=== PATIENT | female | born 1990 | race Caucasian/White ===

== ENCOUNTER 2018-06-24 17:56 | Outpatient (REF) | payer MEDICAID, SELFPAY ==
[2018-06-27 15:30] LABS: Chlamydia Result Negative; GC Result Negative
== END 2018-06-24 18:16 ==
LOC: LBN 17:56
PROVIDERS: PCP Family Medicine; Visit Provider Nurse Practitioner Women's Health
DX: Z11.3 Encounter for screening for infections with a predominantly sexual mode of transmission (principal)
CPT/HCPCS: 87491; 87591

== ENCOUNTER 2018-11-03 16:15 | Emergency (ER) | payer MEDICAID, SELFPAY ==
[2018-11-03 16:20] VITALS: BP 125/67; PULSE 99; RESP 14; TEMP 36.9; O2SAT 99
--- NOTE | 2018-11-03 16:35 | W.ED.GENAD ---
Discharge Plan Disposition Patient Disposition: HOME Condition: Stable Discharge Details Chief Complaint: GenMedical Clinical Impression: Flu-like symptoms Primary Care Provider: Omaira Lion V ED Provider: Jordi Talbot Home Meds and New Rx's Prescriptions: New ondansetron 4 mg tablet,disintegrating 4 mg PO TID PRN (Reason: nausea and vomiting) 5 Days Qty: 30 RF: 0 Continued Nexplanon 68 mg implant 68 mg Subdermal ONCE Qty: 1 RF: 0 ProAir HFA 200 PUFF HFA aerosol inhaler 2 puff Inhalation Q4H PRN PRNQty: 1 RF: 0 Discharge Instructions Additional Instructions: You are likely suffering from a viral illness. Your flu test was negative If symptoms continue next week follow up with your primary care provider return to the emergency department if you feel more ill, have persistent vomit or difficulty breathing Medical Decision Making 28 yo female who denies chronic medical problems, denies smoking/alcohol/drug use, comes in with muscle aches, chills and n/v since yesterday along with diarrhea. She denies new foods or recent travel. She has clear lungs on exam, speaking in full sentences and is afebrile here so doubt pna and appears well so doubt sepsis and do not feel labs or imaging indicated. 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 Soft nontender abdomen so doubt sbo or other surgical pathology. I suspect based on her symptoms viral illness, will check for inlfuenza. influenza test negative. she remains stable and is tolerating PO. Will d/c with antiemetics and advised f/u with pcp and return precautions given Differential Diagnosis influenza, viral illness, pna HPI General Mode of arrival: ambulatory. Date/Time Provider Initiated Documentation: 11/03/18 16:16. Limitations to Documentation: no limitations. Information obtained by: patient. History of Present Illness 28 year old F presents to the emergency department with the chief complaint of muscle aches and n/v, described as moderate, Patient started experiencing this day(s) (1) and it has been constant. No relieving factors improve symptom(s), No exacerbating factors reported . Patient notes cough. Patient did receive the following treatments prior to arrival, none Related Data Home Medications Medication Instructions Recorded Confirmed ProAir HFA 2 puff INHALATION Q4H PRN PRN #1 07/08/15 11/03/18 inh etonogestrel 68 mg subdermal 68 mg SUBDERMAL ONCE #1 implant 06/24/18 11/03/18 implant ondansetron 4 mg PO TID PRN 5 Days #30 tab 11/03/18 Previous Rx's Medication Instructions Recorded ProAir HFA 2 puff INHALATION Q4H PRN PRN #1 07/08/15 inh etonogestrel 68 mg subdermal 68 mg SUBDERMAL ONCE #1 implant 06/24/18 implant ondansetron 4 mg PO TID PRN 5 Days #30 tab 11/03/18 Allergies Allergy/AdvReac Type Severity Reaction Status Date / Time No Known Allergies Allergy Unverified 11/03/18 16:23 General Stated Complaint: GenMedical RAN: 3 Review of Systems Review of Systems All systems reviewed & are unremarkable except as noted in HPI and below Constitutional Denies fever(s) and Denies weakness ENT Denies change in voice Cardiovascular Denies chest pain and Denies dyspnea Respiratory Denies cough and Denies dyspnea Gastrointestinal Denies abdominal pain Genitourinary Denies dysuria Musculoskeletal Denies joint swelling Integumentary/Breasts Denies rash Neurologic Denies weakness Psychiatric Denies depression [facility] Social History Smoking and Tabacco status: Former Tobacco Use Female Reproductive History Menstrual control method: implanted (nexplanon inserted by [employer] ZYN=[id number] EXP=09/2020) History History 2 Para 2 Hx # Term Pregnancies Multiple births Hx # Pregnancies Ectopic pregnancies AB induced Hx Number of Living Children AB spontaneous Exam Const General: no acute distress Orientation: alert HENMI Head: normal to inspection Ears: external ears normal General nose exam: external nose normal Mouth: moist mucous membranes Eyes General: appearance normal, both eyes and all related structures Neck Neck: normal visual inspection Resp Effort & Inspection: normal respiratory effort and able to speak in complete sentences Cardio Rate: regular rate Skin General skin exam: no rashes or lesions noted Neuro General: alert and oriented x3 Extrem General: normal to inspection Psych Mental Status: mental status grossly normal Course Vital Signs Temperature 36.9 C 11/03/18 16:20 Pulse 99 H 11/03/18 16:20 Respiratory Rate 14 11/03/18 16:20 Blood Pressure 125/67 11/03/18 16:20 Pulse Oximetry 99 11/03/18 16:20 Temperature 36.9 C 11/03/18 16:20 Temperature Source Temporal Artery Scan 11/03/18 16:20 Pulse 99 H 11/03/18 16:20 Respiratory Rate 14 11/03/18 16:20 Respiratory Effort Non-Labored 11/03/18 16:21 Blood Pressure 125/67 11/03/18 16:20 Blood Pressure Position Sitting 11/03/18 16:20 Pulse Oximetry 99 11/03/18 16:20 Pain Level 0 11/03/18 16:20 Lab/Test Results Lab/Test Results: 11/03/18 16:26 Nasopharynx Influenza Types A,B Antigen - Pending
[2018-11-03] MEDS: Ondansetron O.D.T. 4 MG TABEF PO (16:42)
--- NOTE | 2018-11-03 16:42 | NUR.NOTE ---
medicated per MD order Nursing Note:
[2018-11-03 17:53] VITALS: BP 125/67; PULSE 99; RESP 14; TEMP 36.9; O2SAT 99
== END 2018-11-03 17:55 | disposition home or self-care (01) ==
PROVIDERS: Emergency Provider Emergency Medicine; PCP Family Medicine
DX: J11.89 Influenza due to unidentified influenza virus with other manifestations (principal)
CPT/HCPCS: 87449; 99283

== ENCOUNTER 2018-11-12 17:50 | Emergency (ER) | payer MEDICAID, SELFPAY ==
[2018-11-12 17:58] VITALS: BP 139/86; PULSE 98; RESP 18; TEMP 37.2; O2SAT 99
[2018-11-12] MEDS: diphenhydrAMINE 25 MG CAP (18:26)
[2018-11-12] MEDS: Famotidine 20 MG TAB (18:26)
[2018-11-12] MEDS: methylPREDNISolone SUCC 125 MG VIAL (18:26)
--- NOTE | 2018-11-12 19:11 | ED.GENADUL_ITS ---
Discharge Plan Disposition Patient Disposition: HOME Condition: Good Discharge Details Chief Complaint: Allergic Clinical Impression: Abscess, dental, Allergic reaction Primary Care Provider: Omaira Lion V ED Provider: Luis Torres Home Meds and New Rx's Prescriptions: New prednisone 50 MG tablet 50 mg PO DAILY Qty: 5 RF: 0 epinephrine 0.3 mg/0.3 mL auto-injector 0.3 mg IM ONCE Qty: 2 RF: 0 amoxicillin-pot clavulanate [Augmentin] 875-125 mg tablet 1 tab PO BID Qty: 14 RF: 0 No Action Nexplanon 68 mg implant 68 mg Subdermal ONCE Qty: 1 RF: 0 albuterol sulfate [ProAir HFA] 200 PUFF HFA aerosol inhaler 2 puff Inhalation Q4H PRN PRNQty: 1 RF: 0 Discharge Instructions Instructions: Dental Abscess (ED), General Allergic Reaction (ED) Additional Instructions: Please take 25 mg of Benadryl every 6 hours for the next 3 days. Please take the steroid as directed. Please use the EpiPen if you have any difficulty breathing, swallowing, rash everywhere, or 5 vomiting or diarrhea with these symptoms. Please follow-up with a dentist immediately for reevaluation of your tooth, please take the Augmentin as directed if you notice any worsening of your symptoms, or any new symptoms such as vomiting, diarrhea, fever, chills, shortness of breath, chest pain, numbness, weakness, or fainting , please return immediately to the emergency department for reevaluation. Please follow up with your primary care provider as soon as possible for reassessment and reevaluation. As always, it was a pleasure participating in your medical care today. . Referrals: Omaira Lion MD [Primary Care Provider] - Medical Decision Making This is a pleasant 28-year-old female who presents for 2 complaints. The patient was eating dinner earlier tonight but quickly developed mild rash over her anterior neck and anterior chest. It occurred while she was eating. She is eating no new foods. She had no complaints of difficulty swallowing, drinking, breathing. She had no vomiting or diarrhea. She did have some hyper secretions in her mouth though. She denied any hot or cold reversal or any peppery taste. On arrival she did demonstrate a very mild rash over anterior chest and neck. Easily blanchable. She was given steroids, Pepcid and Benadryl and had a notable resolution of her symptoms. In addition to this the patient d id complain of mild pain of her left lower molar. Exam demonstrated a small amount of fluctuance at the base of the tooth, a small needle was placed and noted a mild amount of purulent discharge. No significant pain, no signs of angioedema or significant infection. Patient has been given Augmentin here in the ER and will be given a prescription for home use. With complete resolution of her rash, and no signs of systemic infection I feel she can be discharged home. We will give Augmentin for home use, continue steroids and Benadryl for home. We will give a prescription for an EpiPen. I have extensively reviewed the treatment plan and discharge instructions with the patient and their family. I have addressed all patient concerns at this time. The patient and family was made aware of what symptoms to monitor for that would warrant a return to the emergency department. Discussed the plan with the patient and family, they demonstrate verbal understanding and agreement with our assessment and plan at this time. HPI General Date/Time Provider Initiated Documentation: 11/12/18 17:54 . HPI Narrative: This is a 28-year-old female with past medical history of asthma who presents today for evaluation of an allergic reaction. Patient states that she was eating dinner with her at [facility] when she suddenly noticed a warm flush sensation, she went to the bathroom noticed redness all over her neck and anterior chest. She also had a sensation of notable drooling but had no difficulty swallowing, breathing or any other complaints. Patient and her came to the ER for further evaluation. In addition to this the patient has had notable dental problems in the past, she has complained of mild pain in her left lower jaw by her molar, and she is unsure if this is related. She denies any fever or chills. She denies any difficulty or pain eating. She denies any history of anaphylaxis in the past, she denies any history of significant allergic reaction. She has no other complaints at this time. She denies any ingestion of fish, nuts, or other atypical foods. Related Data Home Medications Medication Instructions Recorded Confirmed albuterol sulfate [ProAir HFA] 2 puff INHALATION Q4H PRN PRN #1 07/08/15 11/12/18 inh etonogestrel 68 mg subdermal 68 mg SUBDERMAL ONCE #1 implant 06/24/18 11/12/18 implant amoxicillin-pot clavulanate 1 tab PO BID #14 tab 11/12/18 [Augmentin] epinephrine 0.3 mg IM ONCE #2 each 11/12/18 prednisone 50 mg PO DAILY #5 tab 11/12/18 Previous Rx's Medication Instructions Recorded albuterol sulfate [ProAir HFA] 2 puff INHALATION Q4H PRN PRN #1 07/08/15 inh etonogestrel 68 mg subdermal 68 mg SUBDERMAL ONCE #1 implant 06/24/18 implant amoxicillin-pot clavulanate 1 tab PO BID #14 tab 11/12/18 [Augmentin] epinephrine 0.3 mg IM ONCE #2 each 11/12/18 prednisone 50 mg PO DAILY #5 tab 11/12/18 Allergies Allergy/AdvReac Type Severity Reaction Status Date / Time No Known Allergies Allergy Unverified 11/12/18 18:03 General Stated Complaint: Allergic RAN: 4 Review of Systems Review of Systems All systems reviewed & are unremarkable except as noted in HPI and below PFSH Social History Smoking and Tabacco status: Former Tobacco Use Female Reproductive History Menstrual control method: implanted (nexplanon inserted by Ijeoma DURON THS=[id number] EXP=09/2020) History History 2 Para 2 Hx # Term Pregnancies Multiple births Hx # Pregnancies Ectopic pregnancies AB induced Hx Number of Living Children AB spontaneous Exam Narrative Exam Narrative: 1.Const: Well-nourished, Well-developed, appearing stated age 2.Eyes: PERRL, no conjunctival injection, and symmetrical lids. 3.ENT: Atraumatic external nose and ears. Moist MM. Neck: Symmetric, trachea midline, No thyromegaly. Dental caries are present, there is a small amount of fluctuance around the left lower molar. No active drainage. No evidence of peritonsillar abscess, significant swelling the posterior oropharynx, deviated trachea, angioedema, or other significant abnormalities. 4.CVS: +S1/S2, No murmurs or gallops. Peripheral pulses 2+ and equal in all extremities. Brisk capillary refill in all extremities. 5.RESP: Unlabored respiratory effort. Clear to auscultation bilaterally. No wheezes rales or rhonchi 6.GI: Soft, Nontender/Nondistended, No hepatosplenomegaly. No guarding or rebound. 7.MSK: Normocephalic/Atraumatic, Extremities w/o deformity or ttp No cyanosis or clubbing, Normal movement of all extremities 8.Skin: Warm, Dry. Mild blanching erythema of the anterior neck and chest. Consistent with an allergic reaction. 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 Sensation grossly intact, no focal neurologic deficits. 10.Psych: (AAO) x3. Appropriate mood and affect Course Vital Signs Temperature 37.2 C 11/12/18 17:58 Pulse 98 H 11/12/18 17:58 Respiratory Rate 18 11/12/18 17:58 Blood Pressure 139/86 11/12/18 17:58 Pulse Oximetry 99 11/12/18 17:58 Temperature 37.2 C 11/12/18 17:58 Temperature Source Skin 11/12/18 17:58 Pulse 98 H 11/12/18 17:58 Respiratory Rate 18 11/12/18 17:58 Respiratory Effort 11/12/18 18:08 Respiratory Pattern Normal 11/12/18 18:08 Blood Pressure 139/86 11/12/18 17:58 Pulse Oximetry 99 11/12/18 17:58 Pain Level 0 11/12/18 17:58
[2018-11-12] MEDS: Amoxicillin 875/Clav. 125 TAB PO (19:12)
== END 2018-11-12 19:18 | disposition home or self-care (01) ==
PROVIDERS: Emergency Provider Student in an Organized Health Care Education/Training Program; PCP Family Medicine
DX: R68.84 Jaw pain (principal); K04.7 Periapical abscess without sinus; T78.1XXA Other adverse food reactions, not elsewhere classified, initial encounter; R21 Rash and other nonspecific skin eruption
CPT/HCPCS: 10160; 99283; 99281; J2930

== ENCOUNTER 2019-01-12 13:40 | Emergency (ER) | payer MEDICAID, SELFPAY ==
[2019-01-12 13:44] VITALS: BP 129/80; PULSE 104; RESP 20; TEMP 36.9; O2SAT 96
[2019-01-12] MEDS: Normal Saline 1,000 ML 1000 ML IV (14:25)
[2019-01-12] MEDS: Ketorolac 15 MG/ML VIAL IVP (14:25)
[2019-01-12] MEDS: Acetaminophen 500 MG TAB 1000 MG PO (14:25)
--- NOTE | 2019-01-12 14:29 | W.ED.GENAD ---
Discharge Plan Disposition Patient Disposition: HOME Condition: Improving Discharge Details Chief Complaint: Fever Clinical Impression: URI (upper respiratory infection) Primary Care Provider: Omaira Lion V ED Provider: Julia Hilton Home Meds and New Rx's Prescriptions: Continued Nexplanon 68 mg implant 68 mg Subdermal ONCE Qty: 1 RF: 0 albuterol sulfate [ProAir HFA] 200 PUFF HFA aerosol inhaler 2 puff Inhalation Q4H PRN PRNQty: 1 RF: 0 epinephrine 0.3 mg/0.3 mL auto-injector 0.3 mg IM ONCE Qty: 2 RF: 0 Discharge Instructions Instructions: Upper Respiratory Infection (ED) Additional Instructions: Encourage hydration. Tylenol and/or ibuprofen as needed for discomfort. Please follow-up with primary care next week if not improving. You have declined a lumbar puncture at this time. You may finish this work-up at any point if you have any new or worsening symptoms. If you develop any new or worsening symptoms please seek care urgently once again. Stand Alone Forms: Work Release Discharge Data Discharge Date/Time-TO BE ENTERED AT DEPARTURE: 01/12/19 15:43 HPI General Mode of arrival: ambulatory. Date/Time Provider Initiated Documentation: 01/12/19 13:50. Limitations to Documentation: no limitations. Information obtained by: patient and RN notes reviewed. HPI Narrative: Patient is a 28-year-old female presenting today for fever, headache, sore throat, congestion. She reports that symptoms began 2 days ago. She reports that headache was a gradual onset. She does have a history of migraines and reports that he did feel similar to this although she has not had migraines in some time. Reports he has had a mild cough but no shortness of breath. No chest pain. Denies any GI upset. Endorses congestion and sore throat. Has been febrile at home treating with Tylenol and ibuprofen. She reports that overall her headache is much improved over the past 2 days. Patient is currently afebrile his bends over the past 24 hours per her report Related Data Home Medications Medication Instructions Recorded Confirmed albuterol sulfate [ProAir HFA] 2 puff INHALATION Q4H PRN PRN #1 07/08/15 01/12/19 inh etonogestrel 68 mg subdermal 68 mg SUBDERMAL ONCE #1 implant 06/24/18 01/12/19 implant epinephrine 0.3 mg IM ONCE #2 each 11/12/18 01/12/19 Previous Rx's Medication Instructions Recorded albuterol sulfate [ProAir HFA] 2 puff INHALATION Q4H PRN PRN #1 07/08/15 inh etonogestrel 68 mg subdermal 68 mg SUBDERMAL ONCE #1 implant 06/24/18 implant epinephrine 0.3 mg IM ONCE #2 each 11/12/18 Allergies Allergy/AdvReac Type Severity Reaction Status Date / Time No Known Allergies Allergy Unverified 01/12/19 13:46 General Stated Complaint: Fever RAN: 3 Review of Systems Constitutional Reports as per HPI, Denies chills, Reports fatigue, Reports fever(s), Reports headache(s), Denies poor appetite and Denies weakness Eyes Reports as per HPI, Denies eye discharge, Denies irritation and Denies loss of vision ENT Reports as per HPI, Denies vertigo, Reports otalgia (have been full), Reports headache(s), Reports nasal congestion, Reports nasal discharge, Reports sinus pain, Reports sinus pressure, Reports sore throat, Denies throat swelling and Denies tongue swelling Cardiovascular Reports as per HPI, Denies chest pain, Denies syncope and Denies dyspnea Respiratory Reports as per HPI and Denies dyspnea Gastrointestinal Reports as per HPI, Denies abdominal pain, Denies change in bowel habits, Denies nausea and Denies vomiting Musculoskeletal Denies abnormal gait and Denies numbness Integumentary/Breasts Reports as per HPI and Denies rash Neurologic Reports as per HPI, Denies abnormal movements, Denies abnormal speech, Denies abnormal gait, Denies behavioral changes, Denies confusion, Denies vertigo, Denies syncope, Reports headache(s), Denies focal weakness, Denies loss of vision, Denies numbness, Denies other visual disturbances, Denies sensory deficit and Denies weakness Psychiatric Denies behavioral changes and Denies confusion Endocrine Reports fatigue Allergic/Immunologic Denies throat swelling and Denies tongue swelling [facility] Social History Smoking/Tobacco Use Status: Former Tobacco Use Alcohol Intake: current Alcohol Intake frequency: holidays/special occasions only Drug use: Never Substance use type: does not use Do you feel safe at home: Yes Do you feel safe in your relationship?: Yes Female Reproductive History Menstrual control method: implanted (nexplanon inserted by Ijeoma DURON YAC=[id number] EXP=09/2020) History History 2 Para 2 Hx # Term Pregnancies Multiple births Hx # Pregnancies Ectopic pregnancies AB induced Hx Number of Living Children AB spontaneous Exam Const General: cooperative, healthy appearing, comfortable, no acute distress, well developed and well groomed Nutritional Appearance: average body habitus and well nourished Orientation: alert and awake [facility] Head: normal to inspection, normocephalic and atraumatic Ears: hearing grossly normal bilaterally, external ears normal and TM's normal bilaterally General nose exam: external nose normal and nares normal Face and sinus: normal facial exam, sinuses nontender and face symmetric Mouth: oral mucosae normal, lip normal, tongue normal, oropharynx normal, moist mucous membranes, no muffled voice, no trismus and No restricted motion Teeth and gingiva: dentition normal Throat: uvula midline and abnormal tonsil bilaterally erythema and hypertrophy Eyes General: appearance normal, both eyes and all related structures Neck Neck: normal visual inspection, full ROM, no meningeal signs, trachea midline, supple and lymphadenopathy Resp Effort & Inspection: normal respiratory effort, able to speak in complete sentences and no respiratory distress Auscultation: clear to auscultation bilaterally, no rales, no rhonchi and no wheezes Cardio Rate: regular rate Rhythm: regular rhythm Heart Sounds: S1 normal and S2 normal GI Inspection: normal to inspection Palpation: soft, no hepatosplenomegaly, no guarding, not rigid and nontender Skin General skin exam: no rashes or lesions noted Neuro General: alert and awake Cognition: normal cognition Speech: speech normal Gait: normal gait Extrem General: normal to inspection, full ROM, normal capillary refill, no pedal edema, no calf tenderness and normal gait Psych Appearance: grossly normal and well kempt Mental Status: mental status grossly normal Speech and Movement: speech and movement normal Course Vital Signs Temperature 36.9 C 01/12/19 13:44 Pulse 104 H 01/12/19 13:44 Respiratory Rate 20 01/12/19 13:44 Blood Pressure 129/80 01/12/19 13:44 Pulse Oximetry 96 01/12/19 13:44 Temperature 36.9 C 01/12/19 13:44 Temperature Source Temporal Artery Scan 01/12/19 13:44 Pulse 104 H 01/12/19 13:44 Respiratory Rate 20 01/12/19 13:44 Respiratory Effort Non-Labored 01/12/19 13:44 Blood Pressure 129/80 01/12/19 13:44 Blood Pressure Position Sitting 01/12/19 13:44 Pulse Oximetry 96 01/12/19 13:44 Oxygen Delivery Method Room Air 01/12/19 13:44 Oxygen Flow Rate 0 01/12/19 13:44 Pain Level 6 01/12/19 13:44 Lab/Test Results Lab/Test Results: Patient is a 28-year-old female presenting today with chief complaint of URI and headache. She reports that symptoms began 2 days ago. Initially, she was endorsing headache that came on slowly, no thunderclap quality. States that she had a T-max of 103 ?F. At the onset of headache she has began noting congestion, rhinorrhea, sore throat and mild cough. She denies any chest pain or shortness of breath. She denies any recent travel. Denies any recent antibiotic usage. 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 On exam, she appears nontoxic. She is tachycardic at 104. No rash. Lungs are clear. Neuro exam is intact. She does have some mild discomfort particularly with bending her neck forward but negative Brudzinski. Headache is overall improving over laila past few days. Was initiall 06/22 and is now 4/10. States that she has history of migraines and that it felt very similar to her previous migraines per Labs significant for elevated white count 12.9. Lactate is normal. Labs otherwise without significant abnormality. Influenza is negative. I discussed these findings with the patient. After hydration, Toradol and Tylenol patient feeling much improved. Patient I discussed that this is likely a viral etiology given her congestion, sore throat and upper respiratory symptoms. However, as the patient was endorsing fever and headache, I did consider infectious process such as meningitis or encephalitis. I did recommend a lumbar puncture but the patient prefers to hold off on this at this time. She has capacity to make this decision, is able to return with worsening symptoms and is aware of the risks. She is aware that she may return anytime for this procedure to be completed along with further evaluation.She was given strict return precautions. All of her questions and concerns were addressed, she is in agreement with this plan. 01/12/19 14:18 Nasopharynx Influenza Types A,B Antigen - Pending
[2019-01-12 14:31] LABS: Lactate-non-spesis 0.9 mmol/l (0.6-1.4)
[2019-01-12 14:33] LABS: Abs Immature Grans 0.04 k/cumm (0.0-0.09); Absolute Basophil Count 0.01 k/cumm (0.0-0.2); Absolute Lymphocyte Count 2.35 k/cumm (1.2-3.4); Absolute Neutrophil Count 9.62 k/cumm (1.2-6.7); Basophils % 0.1; Eosinophils % 0.5; HCT 43.5 % (36.0-46.0); HGB 14.4 g/dL (12.0-15.5); Immature Grans % 0.3; Lymphocytes % 18.2; Mean Corp. HGB Concentration 33.1 g/dL (32.0-36.0); Mean Corpuscular Hemoglobin 30.6 pg (27.0-33.0); Mean Corpuscular Volume 92.6 fL (80-95); Mean Platelet Volume 10.5 fL (8.0-11.0); Monocytes % 6.4; Neutrophils % 74.5; Platelet Count 261 x1000/uL (130-400); RBC Distribution Width 12.2 % (11.7-14.6); White Blood Cell Count 12.91 k/cumm (4.4-10.8)
[2019-01-12 14:39] LABS: Absolute Eosinophil Count 0.06 k/cumm (0.0-0.7); Absolute Monocyte Count 0.83 k/cumm (0.11-0.7)
[2019-01-12 14:46] LABS: ALT 53 U/L (12-78); AST 34 U/L (15-37); Albumin 3.7 g/dL (3.4-5.0); Alkaline Phosphatase 64 U/L (46-116); BUN 9 mg/dL (7-18); Bilirubin, Total 1.4 mg/dL (0.2-1.0); CREATININE 0.81 mg/dL (0.55-1.02); Calcium 8.7 mg/dL (8.5-10.1); Chloride 103 mmol/L (98-107); Glucose 98 mg/dL (70-100); Potassium 3.5 mmol/L (3.5-5.1); Sodium 138 mmol/L (136-145); Total Protein 8.1 g/dL (6.4-8.2)
[2019-01-12 15:36] VITALS: BP 108/69; PULSE 87; RESP 14; TEMP 37.4; O2SAT 96
== END 2019-01-12 15:43 | disposition home or self-care (01) ==
PROVIDERS: Emergency Provider Physician Assistant; PCP Family Medicine
DX: J06.9 Acute upper respiratory infection, unspecified (principal); R51 Headache
CPT/HCPCS: 36415; 80053; 87040; 87449; 96361; 96374; 99284; 83605; 83735; 85025; J1885

== ENCOUNTER 2019-06-19 01:11 | Outpatient (CLI) | payer MEDICAID, SELFPAY ==
--- NOTE | 2019-06-19 09:05 | DI.US_ITS ---
EXAM: US HERNIA CLINICAL HISTORY: ABDOMINAL PAIN R10.9, R/O UMBILICAL HERNIA. TECHNIQUE: Ultrasound performed using standard protocol. COMPARISON: US ABDOMEN from 06/19/2019 FINDINGS: A 1.2 cm umbilical hernia demonstrated and could not be completely reduced at the time of this examin ation.
--- NOTE | 2019-06-19 09:05 | DI.US_ITS ---
EXAM: US ABDOMEN CLINICAL HISTORY: ABDOMINAL PAIN R10.9, CHECK GALLBLADDER. TECHNIQUE: Ultrasound performed using standard protocol. COMPARISON: OB US 2-3 TRIMESTER TRANSABD from 11/05/2009 FINDINGS: The aorta and vena cava are intact. The liver is unremarkable. Portal vein is normal. No evidence o f gallstones. Gallbladder wall is normal. There is no evidence of biliary dilatation. The pancreas i s normal. The spleen is normal. The kidneys are unremarkable. There is no evidence of abdominal free fluid. Note is made of 1.2 cm hernia to the left of the umbilicus.
== END 2019-06-19 01:31 ==
PROVIDERS: PCP Family Medicine; Visit Provider Nurse Practitioner Family
DX: R10.9 Unspecified abdominal pain (principal); K42.9 Umbilical hernia without obstruction or gangrene
CPT/HCPCS: 76857; 76700

== ENCOUNTER 2020-07-17 16:14 | Outpatient (REF) | payer SELFPAY ==
[2020-07-22 22:01] LABS: SARS-CoV-2 RNA Undetected (Undetected); SARS-CoV-2 Specimen Source Nasal
== END 2020-07-17 16:34 ==
LOC: NCHCN 16:14
PROVIDERS: PCP Family Medicine; Visit Provider Family Medicine
DX: R19.7 Diarrhea, unspecified (principal); Z11.59 Encounter for screening for other viral diseases
CPT/HCPCS: U0003

== ENCOUNTER 2020-11-24 09:11 | Emergency (ER) | payer BC, SELFPAY ==
[2020-11-24 09:16] VITALS: BP 139/85; PULSE 102; RESP 18; TEMP 36.8; O2SAT 98
--- NOTE | 2020-11-24 09:20 | W.ED.GENAD ---
Discharge Plan Disposition Patient Disposition: HOME Condition: Stable Discharge Details Clinical Impression: Cough Primary Care Provider: Omaira Lion V ED Provider: Julia Hilton Home Meds and New Rx's Prescriptions: New albuterol sulfate 90 mcg/actuation aerosol powdr breath activated 2 inh inhalation Q4H PRNQty: 1 RF: 0 doxycycline hyclate 100 mg capsule 100 mg PO BID Qty: 10 RF: 0 benzonatate [Tessalon Perles] 100 mg capsule 100 mg PO TID PRN (Reason: cough) Qty: 10 RF: 0 Continued Nexplanon 68 mg implant 68 mg Subdermal ONCE Qty: 1 RF: 0 albuterol sulfate [ProAir HFA] 200 PUFF HFA aerosol inhaler 2 puff Inhalation Q4H PRN PRNQty: 1 RF: 0 epinephrine 0.3 mg/0.3 mL auto-injector 0.3 mg IM ONCE Qty: 2 RF: 0 Discharge Instructions Instructions: Acute Cough (ED) Additional Instructions: Please encourage water intake. May use Tylenol and ibuprofen as needed for discomfort. Please use albuterol as previously advised a primary care physician. You may use the Tessalon Perles as prescribed to help with cough. If your symptoms are not improving over the next 48 hours or you develop increasing symptoms, you may begin the antibiotics as discussed. If you begin antibiotics, please take entire course. Please continue to quarantine until your COVID-19 results are returned. Please follow-up with your primary care in 1 week for reevaluation. If you develop shortness of breath, difficulty breathing or the new/worsening symptoms please seek care urgently once again. Stand Alone Forms: Work Release Discharge Data Discharge Date/Time-TO BE ENTERED AT DEPARTURE: 11/24/20 13:46 Medical Decision Making Patient is a pleasant 30-year-old female presented with chief complaint of cough. She reports that cough began approximately 1.5 weeks ago. States that this feels like when she has had pneumonia historically. Reports that over the past few days she began having green sputum. Does endorse some tightness. Denies any chest pain. No pleuritic pain. No history of DVT. Patient does have Nexplanon in place. She denies any nasal congestion, sore throat no GI upset. No change in sense of taste or smell. No recent travel. 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 On exam, patient appears nontoxic. At the time I evaluated the patient, heart rate was 95, Oxygen saturation is 99% in room air. Lung sounds are clear. Normal cardiac exam. No extremity swelling or calf tenderness. Normal HEENT exam. Patient feels like this is recurrence of pneumonia or bronchitis. She does not clinically examine like either. However, given her past medical history I do feel that chest x-ray would be appropriate. Also considered COVID-19. Patient does work in a school but has not had any direct contact with Covid positive people that she is aware of. FINDINGS: Lungs: Unremarkable. No consolidation. Pleural spaces: Unremarkable. No pleural effusion. No pneumothorax. Heart/Mediastinum: Unremarkable. No cardiomegaly. Bones/joints: Unremarkable. IMPRESSION: No acute findings. Discussed the findings with the patient. She denies discussed the potential for pulmonary embolism. I am concerned with the pleuritic chest pain, as well as the patient's use of the Nexplanon, that she has increased risk for pulmonary embolism. Plan to screen baseline labs and D-dimer. Patient does not have any lower extremity edema, no posterior calf pain. Labs reviewed. No leukocytosis. Stable H&H. D-dimer within normal limits. CMP significant for creatinine elevated at 1.2. COVID-19 testing pending. 50 findings with the patient. Advised likely viral upper respiratory infection. She will quarantine until COVID-19 results are back. I encourage hydration. We discussed [id number] and home regimens that may help with symptomatic management. In the event her symptoms worsen, plan to prescribe an antibiotic with a white watch and wait approach. Not appreciate any wheezing, I do not feel that she needs any steroids. Return precautions were discussed. Advise follow-up with primary care in the next 1 to 2 weeks for reevaluation. All her questions and concerns were addressed she is in agreement this plan. HPI General Mode of arrival: ambulatory. Date/Time Provider Initiated Documentation: 11/24/20 09:20. Limitations to Documentation: no limitations. Information obtained by: patient and RN notes reviewed. History of Present Illness 30 year old F presents to the emergency department with the chief complaint of cough, described as moderate and similar to prior episodes, with intensity rated at 6. Quality is described as aching, and is localized to the chest. Patient reports no radiation. Patient started experiencing this week(s) (1.5) and it has been constant. No relieving factors improve symptom(s), No exacerbating factors reported . Patient notes chest pain (describes pleuritic pain ), cough and shortness of breath; denies diaphoresis, fever/chills, headaches, loss of appetite, nausea/vomiting and rash. Patient did receive the following treatments prior to arrival, none Related Data Home Medications Medication Instructions Recorded Confirmed albuterol sulfate [ProAir HFA] 2 puff INHALATION Q4H PRN PRN #1 07/08/15 11/24/20 inh etonogestrel 68 mg subdermal 68 mg SUBDERMAL ONCE #1 implant 06/24/18 11/24/20 implant epinephrine 0.3 mg IM ONCE #2 each 11/12/18 11/24/20 albuterol sulfate 2 inh INHALATION Q4H PRN #1 ea 11/24/20 benzonatate [Tessalon Perles] 100 mg PO TID PRN #10 cap 11/24/20 doxycycline hyclate 100 mg PO BID #10 cap 11/24/20 Previous Rx's Medication Instructions Recorded albuterol sulfate [ProAir HFA] 2 puff INHALATION Q4H PRN PRN #1 07/08/15 inh etonogestrel 68 mg subdermal 68 mg SUBDERMAL ONCE #1 implant 06/24/18 implant epinephrine 0.3 mg IM ONCE #2 each 11/12/18 albuterol sulfate 2 inh INHALATION Q4H PRN #1 ea 11/24/20 benzonatate [Tessalon Perles] 100 mg PO TID PRN #10 [facility] 11/24/20 doxycycline hyclate 100 mg PO BID #10 [facility] 11/24/20 Allergies Allergy/AdvReac Type Severity Reaction Status Date / Time No Known Allergies Allergy Unverified 11/24/20 09:23 General RAN: 3 Review of Systems Constitutional Constitutional: Reports as per HPI, Denies chills, Denies fever(s) and Denies headache(s) Eyes Eyes: Reports as per HPI, Denies eye discharge and Denies irritation ENT Ears, Nose, Mouth, and Throat: Reports as per HPI and Denies headache(s) Cardiovascular Cardiovascular: Reports as per HPI, Denies chest pain and Reports dyspnea Respiratory Respiratory: Reports as per HPI, Reports chest congestion, Reports cough, Denies hemoptysis, Reports pain on inspiration, Reports pain with cough, Reports dyspnea, Denies stridor and Denies wheezing Gastrointestinal Gastrointestinal: Reports as per HPI, Denies abdominal pain, Denies change in bowel habits, Denies nausea and Denies vomiting Integumentary/Breasts Skin/Breast: Reports as per HPI and Denies rash Neurologic Neurologic: Reports as per HPI and Denies headache(s) Allergic/Immunologic Allergic/Immunologic: Denies wheezing [facility] Medical History Abdominal pain in female Bronchitis, acute, with bronchospasm Calculus of gallbladder Cellulitis of hand, left Cubital tunnel syndrome Diarrhea Dyshidrotic eczema Foot pain, left Irregular menses Migraine Pseudocyesis Right shoulder pain Tension headache Social History Smoking/Tobacco Use Status: Former Tobacco Use Tobacco: How many years used: 10 Smoking risk assessment performed?: Yes Alcohol Intake: current Alcohol Intake frequency: holidays/special occasions only Drug use: Never Substance use type: does not use Current gender identity: female Do you feel safe at home: Yes Do you feel safe in your relationship?: Yes Female Reproductive History Menstrual control method: implanted (nexplanon inserted by Ijeoma DURON TAO=[id number] EXP=09/2020) History History 2 Para 2 Hx # Term Pregnancies Multiple births Hx # Pregnancies Ectopic pregnancies AB induced Hx Number of Living Children AB spontaneous Exam Const General: cooperative, healthy appearing, comfortable, no acute distress, well developed and well groomed Nutritional Appearance: well nourished and overweight Orientation: alert and awake [facility] Head: normal to inspection, normocephalic and atraumatic Ears: hearing grossly normal bilaterally, external ears normal and TM's normal bilaterally General nose exam: external nose normal and nares normal Face and sinus: normal facial exam, sinuses nontender and face symmetric Mouth: oral mucosae normal, lip normal, tongue normal, oropharynx normal and moist mucous membranes Teeth and gingiva: dentition normal Throat: posterior oropharynx normal, tonsils normal and uvula midline Eyes General: appearance normal, both eyes and all related structures Neck Neck: normal visual inspection, full ROM, no lymphadenopathy and no meningeal signs Resp Effort & Inspection: normal respiratory effort, able to speak in complete sentences and no respiratory distress Auscultation: clear to auscultation bilaterally, no rales, no rhonchi and no wheezes Cardio Rate: regular rate Rhythm: regular rhythm Heart Sounds: S1 normal and S2 normal Skin General skin exam: no rashes or lesions noted Neuro General: patient alert and patient awake Cognition: normal cognition Speech: speech normal Gait: normal gait Extrem General: normal to inspection, capillary refill normal, no pedal edema, no calf tenderness and normal gait Psych Appearance: grossly normal and well kempt Mental Status: mental status grossly normal Speech and Movement: speech and movement normal
--- NOTE | 2020-11-24 09:45 | DI.RAD_ITS ---
EXAM: XR PORTABLE CHEST AP CLINICAL HISTORY: cough. TECHNIQUE: 2D digital imaging was performed. COMPARISON: CR RIGHT SHOULDER COMPLETE from 06/23/2017 FINDINGS: LUNGS: Clear. No pleural abnormality seen. HEART: Normal. MEDIASTINUM: Normal. OTHER FINDINGS: None. IMPRESSION: No acute pulmonary findings. DATA REPOSITORY: RADIATION DOSE DELIVERED: Total DLP
--- NOTE | 2020-11-24 11:02 | DI.VRAD_ITS ---
PROCEDURE INFORMATION: Exam: XR Chest Exam date and time: 11/24/2020 10:36 AM Age: 30 years old Clinical indication: Cough TECHNIQUE: Imaging protocol: XR of the chest Views: 1 view. COMPARISON: No relevant prior studies available. FINDINGS: Lungs: Unremarkable. No consolidation. Pleural spaces: Unremarkable. No pleural effusion. No pneumothorax. Heart/Mediastinum: Unremarkable. No cardiomegaly. Bones/joints: Unremarkable. IMPRESSION: No acute findings. Dictated and Authenticated by: Bigg Sutton MD. Ordering:BARI Dumont MD
[2020-11-24 12:00] LABS: Abs Immature Grans 0.02 10^3/uL (0.0-0.06); Absolute Basophil Count 0.02 10^3/uL (0.0-0.2); Absolute Eosinophil Count 0.08 10^3/uL (0.0-0.7); Absolute Lymphocyte Count 2.68 10^3/uL (1.2-3.4); Absolute Neutrophil Count 4.72 10^3/uL (1.2-6.7); Basophils % 0.2; HCT 43.5 % (36.0-46.0); HGB 14.3 g/dL (11.2-15.7); Immature Grans % 0.2; Lymphocytes % 33.4; MCH 30.7 pg (27.0-33.0); MCHC 32.9 % (32.0-36.0); MCV 93.3 fL (80-95); Monocytes % 6.2; Nucleated RBC 0 %; Platelet Count 301 10^3/uL (130-400); RBC 4.66 10^6/uL (3.93-5.22); RDW 11.9 % (11.7-14.6); RDW-SD 41.1 fL; WBC 8.02 10^3/uL (4.4-10.8)
[2020-11-24 12:12] LABS: ALT 35 U/L (14-59); AST 21 U/L (15-37); Albumin 3.9 g/dL (3.4-5.0); Alkaline Phosphatase 65 U/L (46-116); Anion Gap 12.4 mmol/L (3-11); BUN 17 mg/dL (7-18); Bilirubin, Total 1.2 mg/dL (0.2-1.0); CO2 22.6 mmol/L (21.0-32.0); CREATININE 1.2 mg/dL (0.55-1.02); Calcium 8.6 mg/dL (8.5-10.1); Chloride 107 mmol/L (98-107); Estimated GFR 52.06 (mL/min/1.73m2); Glucose 98 mg/dL (74-106); Potassium 3.7 mmol/L (3.5-5.1); Sodium 142 mmol/L (136-145); Total Protein 7.6 g/dL (6.4-8.2)
[2020-11-24 12:14] LABS: INR 1.1 (0.9-1.1); PTT Activated 22.3 sec (21.0-27.5); Prothrombin Time 10.7 sec (9.3-11.0)
[2020-11-24 12:29] LABS: D-Dimer 316 ng/mlFEU (<500)
[2020-11-25 15:03] LABS: COVID-19 RT-PCR UVMMC Result Negative (Negative)
--- NOTE | 2020-11-25 18:03 | NUR.NOTE ---
Nursing Note: Pt notified of Negative Covid test. Pt requested copy to be mailed to her. Decided she would pick it up at ER tomorrow.
--- NOTE | 2020-12-01 07:44 | NUR.NOTE ---
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 It has been at the desk for a week. I have mailed the result to her. Bessy Mcarthur
== END 2020-11-24 13:46 | disposition home or self-care (01) ==
PROVIDERS: Emergency Provider Physician Assistant; PCP Family Medicine
DX: R05 Cough (principal); R07.81 Pleurodynia; R06.02 Shortness of breath; B34.9 Viral infection, unspecified; R94.4 Abnormal results of kidney function studies; Z03.818 Encounter for observation for suspected exposure to other biological agents ruled out
CPT/HCPCS: 36415; 80053; 81025; 99284; U0003; 71045; 85025; 85379; 85610; 85730; 99285

== ENCOUNTER 2021-04-12 21:34 | Emergency (ER) | payer BC, SELFPAY ==
[2021-04-12 21:48] VITALS: BP 137/81; PULSE 111; RESP 20; TEMP 36.6; O2SAT 97
--- NOTE | 2021-04-12 22:22 | ED.GENADUL_ITS ---
Discharge Plan Disposition Patient Disposition: HOME Condition: Good Discharge Details Clinical Impression: Laceration of right thumb Primary Care Provider: Omaira Lion V ED Provider: Lusi Torres Home Meds and New Rx's Prescriptions: New cephalexin 500 mg capsule 500 mg PO QID 5 Days Qty: 20 RF: 0 Continued Nexplanon 68 mg implant 68 mg Subdermal ONCE Qty: 1 RF: 0 propranolol 20 mg tablet 20 mg PO BID Qty: 60 RF: 3 prochlorperazine maleate 5 mg tablet See Rx Instructions PO TID PRN (Reason: headaches and/or nausea) Qty: 30 RF: 3 rizatriptan 10 mg tablet See Rx Instructions PO .COMPLEX Qty: 10 RF: 3 ondansetron HCl 4 mg tablet 4 mg PO Q8H RF: 0 albuterol sulfate [ProAir HFA] 200 PUFF HFA aerosol inhaler 2 puff Inhalation Q4H PRN PRNQty: 1 RF: 0 epinephrine 0.3 mg/0.3 mL auto-injector 0.3 mg IM ONCE Qty: 2 RF: 0 Discharge Instructions Instructions: Laceration (ED), Care For Your Absorbable Stitches (ED) Additional Instructions: Please change the dressing daily. Do not directly soak the area. Watch for any signs of infection and return if any increasing redness, swelling, pain, drainage. The sutures should start falling off in 7 to 10 days. I would not be overly hasty and removing them if there is no evidence of infection pain or irritation. You want that area of high tension to heal well and thoroughly before removing the supportive sutures. Please take the antibiotic as directed. The prescription has been sent to your pharmacy on file. If you notice any worsening of your symptoms, or any new symptoms such as vomiting, diarrhea, fever, chills, shortness of breath, chest pain, numbness, weakness, or fainting , please return immediately to the emergency department for reevaluation. Please follow up with your primary care provider as soon as possible for reassessment and reevaluation. As always, it was a pleasure participating in your medical care today. 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 Patient was on her 4 mckay, they were trying to move it and push it up when her hand slipped across the foot peg, lacerating the the thumb at the thenar eminence. Patient cleaned the area, and came into the ER for further assessment. Patient denies any numbness or tingling on the thumb itself. She admits to a tiny bit of tingling at the thenar eminence. She denies any weakness. No other trouble otherwise. No other complaints at this time. Uncertain of when her last tetanus shot was. Physical exam demonstrates a crescent-shaped laceration roughly 4 cm in length. It is surprisingly intact for all the deep structures with no evidence of tendon involvement whatsoever. Neurovascular exam is notably normal. Excellent strength of the thumb with no signs of deficit. The area was notably dirty, grass and dirt was removed. Area was irrigated well with copious amounts of saline and chlorhexidine. Patient tolerated this well. After anesthetization 11 simple interrupted sutures were placed with 5-0 Chromic Gut. Dermabond was then placed over. Patient tolerated all this well. Movement remains intact, strength remains intact. We will start the patient on antibiotics due to the notable contaminated state of the wound initially prior to cleaning. Will give Keflex here and a prescription from use. I will give the patient thumb spica splint for thumb stabilization while she works to prevent any dehiscence. Discussed red flags which to return. I have extensively reviewed the treatment plan and discharge instructions with the patient and their family. I have addressed all patient concerns at this time. The patient and family was made aware of what symptoms to monitor for that would warrant a return to the emergency department. Discussed the plan with the patient and family, they demonstrate verbal understanding and agreement with our assessment and plan at this time. The documentation in this chart was dictated using [employer] dictation software. Please excuse any dictation errors. HPI General Date/Time Provider Initiated Documentation: 04/12/21 21:35 . 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 Patient was on her 4 mckay, they were trying to move it and push it up when her hand slipped across the foot peg, lacerating the the thumb at the thenar eminence. Patient cleaned the area, and came into the ER for further assessment. Patient denies any numbness or tingling on the thumb itself. She admits to a tiny bit of tingling at the thenar eminence. She denies any weakness. No other trouble otherwise. No other complaints at this time. Uncertain of when her last tetanus shot was. Related Data Home Medications Medication Instructions Recorded Confirmed albuterol sulfate [ProAir HFA] 2 puff INHALATION Q4H PRN PRN #1 07/08/15 04/12/21 inh etonogestrel 68 mg subdermal 68 mg SUBDERMAL ONCE #1 implant 06/24/18 04/12/21 implant epinephrine 0.3 mg IM ONCE #2 each 11/12/18 04/12/21 ondansetron HCl 4 mg tablet 4 mg PO Q8H 12/03/20 prochlorperazine maleate 5 mg See Rx Instructions PO TID PRN #30 12/24/20 04/12/21 tablet tab propranolol 20 mg tablet 20 mg PO BID #60 tab 12/24/20 04/12/21 rizatriptan 10 mg tablet See Rx Instructions PO .COMPLEX 02/11/21 02/11/21 #10 tab cephalexin 500 mg PO QID 5 Days #20 cap 04/12/21 Previous Rx's Medication Instructions Recorded albuterol sulfate [ProAir HFA] 2 puff INHALATION Q4H PRN PRN #1 07/08/15 inh etonogestrel 68 mg subdermal 68 mg SUBDERMAL ONCE #1 implant 06/24/18 implant epinephrine 0.3 mg IM ONCE #2 each 11/12/18 prochlorperazine maleate 5 mg See Rx Instructions PO TID PRN #30 12/24/20 tablet tab propranolol 20 mg tablet 20 mg PO BID #60 tab 12/24/20 rizatriptan 10 mg tablet See Rx Instructions PO .COMPLEX 02/11/21 #10 tab cephalexin 500 mg PO QID 5 Days #20 cap 04/12/21 Allergies Allergy/AdvReac Type Severity Reaction Status Date / Time No Known Allergies Allergy Unverified 04/12/21 21:51 horse radish Allergy Severe Uncoded 04/12/21 21:51 blue cheese Allergy Uncoded 04/12/21 21:51 General Stated Complaint: Laceration RAN: 4 Review of Systems All systems reviewed & are unremarkable except as noted in HPI and below PFSH Medical History Abdominal pain in female Asthma Bronchitis, acute, with bronchospasm Calculus of gallbladder Cellulitis of hand, left Cubital tunnel syndrome Diarrhea Dyshidrotic eczema Foot pain, left Irregular menses Migraine Nocturnal headaches Pseudocyesis Right shoulder pain Tension headache Social History Smoking/Tobacco Use Status: Former Tobacco Use Tobacco: How many years used: 10 Smoking risk assessment performed?: Yes Alcohol Intake: current Alcohol Intake frequency: holidays/special occasions only Drug use: Never Substance use type: does not use Household members: spouse and children 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 [employer] Pets and animals: Yes Pets and animals: cat(s), dog(s) and bird(s) Current gender identity: female What is your relationship status?: Panel score (0-1 are the most socially isolated patients): 1 What type of physical activity do you participate in: walking Seatbelt use: always Do you feel safe at home: Yes Do you feel safe in your relationship?: Yes Female Reproductive History Menstrual control method: implanted (nexplanon inserted by Ijeoma DURON TBH=[id number] EXP=09/2020) History History 2 Para 2 Hx # Term Pregnancies Multiple births Hx # Pregnancies Ectopic pregnancies AB induced Hx Number of Living Children AB spontaneous Exam Narrative Exam Narrative: 1.Const: Well-nourished, Well-developed, appearing stated age 2.Eyes: PERRL, no conjunctival injection, and symmetrical lids. 3.ENT: Atraumatic external nose and ears. Moist MM. Neck: Symmetric, trachea midline, No thyromegaly. 4.CVS: +S1/S2, No murmurs or gallops. Peripheral pulses 2+ and equal in all extremities. Brisk capillary refill in all extremities. 5.RESP: Unlabored respiratory effort. Clear to auscultation bilaterally. No wheezes rales or rhonchi 6.GI: Soft, Nontender/Nondistended, No hepatosplenomegaly. No guarding or rebound. 7.MSK: Normocephalic/Atraumatic, Extremities w/o deformity or ttp No cyanosis or clubbing, Normal movement of all extremities Symmetrically palpable radial and ulnar pulses. Capillary refill less than 2 seconds to all digits. Intact sensation to light touch of the radial, median and ulnar nerves demonstrated by testing in the dorsal web space of the thumb, the distal palmar aspect of the index finger, and the lateral surface of the fifth finger. 2 point discrimination intact to 5mm (up to 6mm can be normal in digits 3-5) of discrimination in the affected digit of the thumb. 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 Intact recurrent median nerve as demonstrated by ability to move thumb fully through opposition, abduction and flexion. No snuffbox tenderness. 8.Skin: 4 cm linear crescent-shaped laceration around the medial base of the thumb extending from the palmar side to the dorsal side. Laceration includes the epidermis and dermis and some of the subcutaneous layer however the deep tissues appear to be completely intact. No evidence of tendon involvement or visualization. No active bleeding. There is a small amount of dirt and grass in the thumb. 9.Neuro: wet roller II-XII grossly intact. Sensation grossly intact, no focal neurologic deficits. Please see musculoskeletal 10.Psych: (AAO) x3. Appropriate mood and affect Course Vital Signs Vital signs: Vital Signs Temperature 36.6 C 04/12/21 21:48 Pulse 111 H 04/12/21 21:48 Respiratory Rate 20 04/12/21 21:48 Blood Pressure 137/81 04/12/21 21:48 Pulse Oximetry 97 04/12/21 21:48 Temperature 36.6 C 04/12/21 21:48 Pulse 111 H 04/12/21 21:48 Respiratory Rate 20 04/12/21 21:48 Respiratory Effort Non-Labored 04/12/21 21:52 Blood Pressure 137/81 04/12/21 21:48 Pulse Oximetry 97 04/12/21 21:48 Pain Level 3 04/12/21 21:48 Procedures Laceration Laceration 1: Site: hand (thumb) Side (If applicable): right Size (cm): 4 Description: linear and contaminated Depth: simple, single layer Local Anesthetic: Lidocaine 1% Amount of anesthesia used (mL): 5 Pre-repair: wound explored, irrigated extensively and deep structures intact Skin layer closed with: other (chromic gut) Number of sutures: 11 Technique: simple, interrupted
[2021-04-12] MEDS: Cephalexin 500 MG CAP, 4 CAPS/BTL PO (22:25)
[2021-04-12] MEDS: Bacitracin 1 PACKET (22:46)
== END 2021-04-12 22:45 | disposition home or self-care (01) ==
PROVIDERS: Emergency Provider Student in an Organized Health Care Education/Training Program; PCP Family Medicine
DX: S61.011A Laceration without foreign body of right thumb without damage to nail, initial encounter (principal); W26.8XXA Contact with other sharp object(s), not elsewhere classified, initial encounter
CPT/HCPCS: 12002; 90471

== ENCOUNTER 2021-04-29 10:33 | Emergency (ER) | payer BC, SELFPAY ==
[2021-04-29 10:36] VITALS: BP 122/69; PULSE 103; RESP 18; TEMP 36.8; O2SAT 97
--- NOTE | 2021-04-29 10:49 | ED.GENADUL_ITS ---
Discharge Plan Disposition Patient Disposition: HOME Condition: Stable Discharge Details Clinical Impression: Delayed wound healing Primary Care Provider: Omaira Lion V ED Provider: Dara Thorne Home Meds and New Rx's Prescriptions: No Action Nexplanon 68 mg implant 68 mg Subdermal ONCE Qty: 1 RF: 0 propranolol 20 mg tablet 20 mg PO BID Qty: 60 RF: 3 prochlorperazine maleate 5 mg tablet See Rx Instructions PO TID PRN (Reason: headaches and/or nausea) Qty: 30 RF: 3 rizatriptan 10 mg tablet See Rx Instructions PO .COMPLEX Qty: 10 RF: 3 ondansetron HCl 4 mg tablet 4 mg PO Q8H RF: 0 albuterol sulfate [ProAir HFA] 200 PUFF HFA aerosol inhaler 2 puff Inhalation Q4H PRN PRNQty: 1 RF: 0 epinephrine 0.3 mg/0.3 mL auto-injector 0.3 mg IM ONCE Qty: 2 RF: 0 Discharge Instructions Instructions: Acute Wounds (ED) Additional Instructions: At this time the wound is going to be allowed to heal by secondary intention. Th is may mean that it may take up to 3 to 4 weeks for complete healing. Please allow the wound to air dry as much as possible. You may wash it once daily under running soap and water. Do not keep completely covered. If it does need to be covered just loosely with a dry gauze. Follow up with primary care provider in 3-5 days. Return to ED sooner if any worsening or concerns. Increase oral fluids. Please take Tylenol or Ibuprofen with food every 4-6 hours as needed for pain and swelling. Referrals: Omaira Lion MD [Primary Care Provider] - Discharge Data Discharge Date/Time-TO BE ENTERED AT DEPARTURE: 04/29/21 11:01 Medical Decision Making 30-year-old female presents to ER with chief complaint of nonhealing wound. Patient initially had suturable laceration with 11 internal sutures on April 12. She presents with concern for wound recheck due to open areas of the wound. On initial exam there is no signs of infection no surrounding erythema or drainage however there is a section of the wound that is macerated and appears to have increased moisture. Patient has been keeping it covered continuously with Band- Aid. She was seen at urgent care and had some Steri-Strips placed she was originally placed on cephalexin at I did discuss home care with patient and instructed to allow wound to air dry as much as possible. We will cleaned with chlorhexidine here in the department and cover with a loose dry gauze dressing. Patient verbalized understanding. At this time there is no evidence of infection with antibiotic are not warranted. Instructed to follow-up with primary care provider in the next 3 to 5 days. HPI General Mode of arrival: ambulatory . Date/Time Provider Initiated Documentation: 04/29/21 10:33 . Limitations to Documentation: no limitations . Information obtained by: patient, RN notes reviewed and old records reviewed . HPI Narrative: 30-year-old female presents to ER with chief complaint of nonhealing wound. Patient initially had suturable laceration with 11 internal sutures on April 12. She presents with concern for wound recheck due to open areas of the wound. On initial exam there is no signs of infection no surrounding erythema or drainage however there is a section of the wound that is macerated and appears to have increased moisture. Patient has been keeping it covered continuously with Band-Aid. She was seen at urgent care and had some Steri-Strips placed she was originally placed on cephalexin at the time of the injury. Related Data Home Medications Medication Instructions Recorded Confirmed albuterol sulfate [ProAir HFA] 2 puff INHALATION Q4H PRN PRN #1 07/08/15 04/29/21 inh etonogestrel 68 mg subdermal 68 mg SUBDERMAL ONCE #1 implant 06/24/18 04/29/21 implant epinephrine 0.3 mg IM ONCE #2 each 11/12/18 04/29/21 ondansetron HCl 4 mg tablet 4 mg PO Q8H 12/03/20 04/29/21 prochlorperazine maleate 5 mg See Rx Instructions PO TID PRN #30 12/24/20 04/29/21 tablet tab propranolol 20 mg tablet 20 mg PO BID #60 tab 12/24/20 04/29/21 rizatriptan 10 mg tablet See Rx Instructions PO .COMPLEX 02/11/21 04/29/21 #10 tab Previous Rx's Medication Instructions Recorded albuterol sulfate [ProAir HFA] 2 puff INHALATION Q4H PRN PRN #1 07/08/15 inh etonogestrel 68 mg subdermal 68 mg SUBDERMAL ONCE #1 implant 06/24/18 implant epinephrine 0.3 mg IM ONCE #2 each 11/12/18 prochlorperazine maleate 5 mg See Rx Instructions PO TID PRN #30 12/24/20 tablet tab propranolol 20 mg tablet 20 mg PO BID #60 tab 12/24/20 rizatriptan 10 mg tablet See Rx Instructions PO .COMPLEX 02/11/21 #10 tab Allergies Allergy/AdvReac Type Severity Reaction Status Date / Time No Known Allergies Allergy Unverified 04/29/21 10:44 horse radish Allergy Severe Uncoded 04/29/21 10:44 blue cheese Allergy Uncoded 04/29/21 10:44 General Stated Complaint: Recheck RAN: 4 Review of Systems All systems reviewed & are unremarkable except as noted in HPI and below Integumentary/Breasts Skin/Breast: Reports as per HPI and Reports wounds (delayed healing to la ceration of right palm) [facility] Medical History Abdominal pain in female Asthma Bronchitis, acute, with bronchospasm Calculus of gallbladder Cellulitis of hand, left Cubital tunnel syndrome Diarrhea Dyshidrotic eczema Foot pain, left Irregular menses Migraine Nocturnal headaches Pseudocyesis Right shoulder pain Tension headache Social History Smoking/Tobacco Use Status: Former Tobacco Use Tobacco: How many years used: 10 Smoking risk assessment performed?: Yes Alcohol Intake: current Alcohol Intake frequency: holidays/special occasions only Drug use: Never Substance use type: does not use Household members: spouse and children 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 [place] Pets and animals: Yes Pets and animals: cat(s), dog(s) and bird(s) Current gender identity: female What is your relationship status?: Panel score (0-1 are the most socially isolated patients): 1 What type of physical activity do you participate in: walking Seatbelt use: always Do you feel safe at home: Yes Do you feel safe in your relationship?: Yes Female Reproductive History Menstrual control method: implanted (nexplanon inserted by Ijeoma DURON PIS=[id number] EXP=09/2020) History History 2 Para 2 Hx # Term Pregnancies Multiple births Hx # Pregnancies Ectopic pregnancies AB induced Hx Number of Living Children AB spontaneous Exam Extrem Right upper extremity: hand Details: laceration palm palmar aspect Hand/finger images: 1. Partially open laceration noted to the right thenar eminence, there is an area of macerated tissue due to moisture. Course Vital Signs Vital signs: Vital Signs Temperature 36.8 C 04/29/21 10:36 Pulse 103 H 04/29/21 10:36 Respiratory Rate 18 04/29/21 10:36 Blood Pressure 122/69 04/29/21 10:36 Pulse Oximetry 97 04/29/21 10:36 Temperature 36.8 C 04/29/21 10:36 Temperature Source Temporal Artery Scan 04/29/21 10:36 Pulse 103 H 04/29/21 10:36 Respiratory Rate 18 04/29/21 10:36 Respiratory Effort Non-Labored 04/29/21 10:43 Blood Pressure 122/69 04/29/21 10:36 Blood Pressure Position Sitting 04/29/21 10:36 Pulse Oximetry 97 04/29/21 10:36 Oxygen Delivery Method Room Air 04/29/21 10:36 Oxygen Flow Rate 0 04/29/21 10:36 Pain Level 0 04/29/21 10:36
== END 2021-04-29 11:01 | disposition home or self-care (01) ==
PROVIDERS: Emergency Provider Registered Nurse Emergency; PCP Family Medicine
DX: L76.82 Other postprocedural complications of skin and subcutaneous tissue (principal); S61.011D Laceration without foreign body of right thumb without damage to nail, subsequent encounter; W26.8XXD Contact with other sharp object(s), not elsewhere classified, subsequent encounter
CPT/HCPCS: 99282

== ENCOUNTER 2021-07-08 16:08 | Emergency (ER) | payer OTHER, SELFPAY ==
[2021-07-08 16:22] VITALS: BP 130/82; PULSE 89; RESP 16; TEMP 36.8; O2SAT 100
--- NOTE | 2021-07-08 16:24 | ED.GENADUL_ITS ---
Discharge Plan Disposition Patient Disposition: HOME Condition: Good Discharge Details Clinical Impression: Trapezius muscle strain Primary Care Provider: Omaira Lion V ED Provider: Karie Mckeon Home Meds and New Rx's Prescriptions: New cyclobenzaprine 10 mg tablet 10 mg PO TID PRNQty: 10 RF: 0 Continued Nexplanon 68 mg implant 68 mg Subdermal ONCE Qty: 1 RF: 0 propranolol 20 mg tablet 20 mg PO BID Qty: 60 RF: 3 prochlorperazine maleate 5 mg tablet See Rx Instructions PO TID PRN (Reason: headaches and/or nausea) Qty: 30 RF: 3 rizatriptan 10 mg tablet See Rx Instructions PO .COMPLEX Qty: 10 RF: 3 ondansetron HCl 4 mg tablet 4 mg PO Q8H RF: 0 albuterol sulfate [ProAir HFA] 200 PUFF HFA aerosol inhaler 2 puff Inhalation Q4H PRN PRNQty: 1 RF: 0 epinephrine 0.3 mg/0.3 mL auto-injector 0.3 mg IM ONCE Qty: 2 RF: 0 Discharge Instructions Additional Instructions: You may use [id number] Lidoderm patches as needed, 12 hours on, 12 hours off You may take ibuprofen 600 mg every 8 hours with food Tylenol 650 mg every 4-6 hours Flexeril as needed for musculoskeletal pain Please follow-up with occupational health and primary physician. Return to full duty Return earlier should you have new or worse Stand Alone Forms: Work Release Discharge Data Discharge Date/Time-TO BE ENTERED AT DEPARTURE: 07/08/21 16:59 Medical Decision Making Patient appears well, I suspect musculoskeletal injury to patient's trapezius, strain There is no indication for x-ray imaging at this time, able to range right shoulder completely with discomfort Neurovascularly intact Lungs clear to auscultation, no chest pain or shortness of breath, no suspicion for pneumothorax Repeat assessment in 1 week with persistent pain Medical Records Medical records reviewed: Yes I reviewed the patient's medical records. Lab Data Lab results reviewed: Yes I reviewed the patient's lab results. HPI General Mode of arrival: ambulatory . Date/Time Provider Initiated Documentation: 07/08/21 16:23 . Limitations to Documentation: no limitations . Information obtained by: patient . HPI Narrative: 30-year-old female after shaking injury. Denies any neck pain, strength or sensation change. Pain overlying her trapezius. Denies any shortness of breath of anterior chest pain. Denies abdominal pain, weakness, numbness, tingling, or chance of . Related Data Home Medications Medication Instructions Recorded Confirmed albuterol sulfate [ProAir HFA] 2 puff INHALATION Q4H PRN PRN #1 07/08/15 04/29/21 inh etonogestrel 68 mg subdermal 68 mg SUBDERMAL ONCE #1 implant 06/24/18 04/29/21 implant epinephrine 0.3 mg IM ONCE #2 each 11/12/18 04/29/21 ondansetron HCl 4 mg tablet 4 mg PO Q8H 12/03/20 04/29/21 prochlorperazine maleate 5 mg See Rx Instructions PO TID PRN #30 12/24/20 04/29/21 tablet tab propranolol 20 mg tablet 20 mg PO BID #60 tab 12/24/20 04/29/21 rizatriptan 10 mg tablet See Rx Instructions PO .COMPLEX 02/11/21 04/29/21 #10 tab cyclobenzaprine 10 mg PO TID PRN #10 tab 07/08/21 Previous Rx's Medication Instructions Recorded albuterol sulfate [ProAir HFA] 2 puff INHALATION Q4H PRN PRN #1 07/08/15 inh etonogestrel 68 mg subdermal 68 mg SUBDERMAL ONCE #1 implant 06/24/18 implant epinephrine 0.3 mg IM ONCE #2 each 11/12/18 prochlorperazine maleate 5 mg See Rx Instructions PO TID PRN #30 12/24/20 tablet tab propranolol 20 mg tablet 20 mg PO BID #60 tab 12/24/20 rizatriptan 10 mg tablet See Rx Instructions PO .COMPLEX 02/11/21 #10 tab cyclobenzaprine 10 mg PO TID PRN #10 tab 07/08/21 Allergies Allergy/AdvReac Type Severity Reaction Status Date / Time No Known Allergies Allergy Unverified 07/08/21 16:27 horse radish Allergy Severe Uncoded 07/08/21 16:27 blue cheese Allergy Uncoded 07/08/21 16:27 General RAN: 4 Review of Systems All systems reviewed & are unremarkable except as noted in HPI and below [facility] Medical History Abdominal pain in female Asthma Bronchitis, acute, with bronchospasm Calculus of gallbladder Cellulitis of hand, left Cubital tunnel syndrome Diarrhea Dyshidrotic eczema Foot pain, left Irregular menses Migraine Nocturnal headaches Pseudocyesis Right shoulder pain Tension headache Social History Smoking/Tobacco Use Status: Former Tobacco Use Tobacco: How many years used: 10 Smoking risk assessment performed?: Yes Alcohol Intake: current Alcohol Intake frequency: holidays/special occasions only Drug use: Never Substance use type: does not use Household members: spouse and children 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 [place] Pets and animals: Yes Pets and animals: cat(s), dog(s) and bird(s) Current gender identity: female What is your relationship status?: Panel score (0-1 are the most socially isolated patients): 1 What type of physical activity do you participate in: walking Seatbelt use: always Do you feel safe at home: Yes Do you feel safe in your relationship?: Yes Female Reproductive History Menstrual control method: implanted (nexplanon inserted by Ijeoma DURON RBN=[id number] EXP=09/2020) History History 2 Para 2 Hx # Term Pregnancies Multiple births Hx # Pregnancies Ectopic pregnancies AB induced Hx Number of Living Children AB spontaneous Exam Const General: cooperative, comfortable and no acute distress HENMT Head: normal to inspection Eyes Pupils: PERRL Neck Other: No midline tenderness Resp Effort & Inspection: normal respiratory effort Auscultation: clear to auscultation bilaterally Cardio Rate: regular rate Rhythm: regular rhythm Other: Distal pulses intact Neuro General: patient alert and patient oriented x3 Other: Strength and sensation intact distally Extrem Shoulder/upper arm images: 1. Reproducible tenderness, no visible sign of trauma, no crepitus
== END 2021-07-08 16:59 | disposition home or self-care (01) ==
PROVIDERS: Emergency Provider Physician Assistant; PCP Family Medicine
DX: S46.811A Strain of other muscles, fascia and tendons at shoulder and upper arm level, right arm, initial encounter (principal); X58.XXXA Exposure to other specified factors, initial encounter
CPT/HCPCS: 99283

== ENCOUNTER 2021-07-24 15:05 | Outpatient (REF) | payer BC, SELFPAY ==
[2021-07-26 18:24] LABS: COVID-19 RT-PCR UVMMC Result Negative (Negative)
== END 2021-07-24 15:06 | disposition home or self-care (01) ==
LOC: NCHCN 15:05
PROVIDERS: PCP Family Medicine; Visit Provider Family Medicine
DX: Z20.822 Contact with and (suspected) exposure to COVID-19 (principal)
CPT/HCPCS: U0003

== ENCOUNTER 2021-07-28 11:41 | Outpatient (REF) | payer BC, SELFPAY ==
[2021-07-30 22:13] LABS: COVID-19 RT-PCR UVMMC Result Positive (Negative)
== END 2021-07-28 11:42 | disposition home or self-care (01) ==
LOC: NCHCN 11:41
PROVIDERS: PCP Family Medicine; Visit Provider Nurse Practitioner Family
DX: Z20.822 Contact with and (suspected) exposure to COVID-19 (principal); J06.9 Acute upper respiratory infection, unspecified
CPT/HCPCS: U0003

== ENCOUNTER 2021-07-28 13:22 | Outpatient (CLI) | payer BC, SELFPAY ==
--- NOTE | 2021-07-28 11:35 | DI.RAD_ITS ---
Exam(s) XR CHEST 2V PA LATERAL EXAM: XR CHEST 2V PA LATERAL CLINICAL HISTORY: DYSPNEA R06.00. TECHNIQUE: 2D digital imaging was performed. COMPARISON: CR,XR XR PORTABLE CHEST AP from 11/24/2020 FINDINGS: Heart size is normal. The mediastinum is not widened. Right lung is clear but there is nodular infiltrate in the left suprahilar region measuring approxima tely 2.5 by 1.7 cm. No associated pleural effusions. IMPRESSION: There is area of suprahilar infiltrate on the left side measuring 25 x 17 millimeters requiring imagi ng follow-up to resolution to rule out malignancy. DATA REPOSITORY: RADIATION DOSE DELIVERED:
== END 2021-07-28 13:42 ==
PROVIDERS: PCP Family Medicine; Visit Provider Nurse Practitioner Family
DX: R06.09 Other forms of dyspnea (principal); R91.8 Other nonspecific abnormal finding of lung field
CPT/HCPCS: 71046

== ENCOUNTER 2021-08-14 09:54 | Outpatient (CLI) | payer BC, SELFPAY ==
--- NOTE | 2021-08-14 | DI.RAD_ITS ---
Exam(s) XR CHEST 2V PA LATERAL EXAM: XR CHEST 2V PA LATERAL CLINICAL HISTORY: PULMONARY INFILTRATE, R91.8, F/U CXR 07/28/21, HAD COVID EARLY JULY. TECHNIQUE: 2D digital imaging was performed. COMPARISON: CR CHEST 2 VIEWS PA,LAT from 11/16/2012 CR,XR XR PORTABLE CHEST AP from 11/24/2020 CR,XR XR PORTABLE CHEST AP from 11/24/2020 CR XR CHEST 2V PA LATERAL from 07/28/2021 FINDINGS: The left upper lobe suprahilar infiltrate has decreased/mostly resolved. No new additional infiltrat es and no pleural effusions. Heart size is normal. IMPRESSION: Significant improvement in the left suprahilar infiltrate. This appears to have mostly resolved. Th ere are no new infiltrates. No pleural effusion DATA REPOSITORY: RADIATION DOSE DELIVERED:
== END 2021-08-14 10:14 ==
LOC: DI 09:56
PROVIDERS: PCP Family Medicine; Visit Provider Nurse Practitioner Family
DX: R91.8 Other nonspecific abnormal finding of lung field (principal)
CPT/HCPCS: 71046

== ENCOUNTER 2021-11-13 16:28 | Outpatient (REF) | payer BC, OTHER, SELFPAY ==
--- NOTE | 2021-11-13 15:33 | PAPFT_PTH ---
PATIENT: Yudy Matos LOC: [facility] U#:[id number] AGE/SX: 31/F ROOM: RE11/13/[address]: Buffy Mtz MD : 1990 BED: DIS: 11/13/2021 SPEC #: [id number] RECD: 11/13/21 17:50 STATUS: KACI REKayden #: [id number] CORDELL: 11/13/21 15:[address]: Buffy Mtz DEPT: [facility] Cytology RECD BY: Karie Elder ENTERED: 11/13/21 17:50 SP TYPE: PAPFT OTHR DR: Omaira Lion V Tissues: 1 - CX/ENDOCX FOR PAP SMEARS Procedures: PAP THIN PREP/UVM Screening HPV DNA PROBE Comments: [id number]
== END 2021-11-13 16:29 | disposition home or self-care (01) ==
LOC: LBN 16:28
PROVIDERS: PCP Family Medicine; Visit Provider Obstetrics & Gynecology
DX: Z12.4 Encounter for screening for malignant neoplasm of cervix (principal); Z11.51 Encounter for screening for human papillomavirus (HPV)
CPT/HCPCS: 88142; 87624

== ENCOUNTER 2022-06-29 03:35 | Outpatient (CLI) | payer OTHER, SELFPAY ==
[2022-06-29 07:50] LABS: Calculated LDL 135 mg/dL (<100); Cholesterol 208 mg/dL (<200); Estimated GFR 76.29 (mL/min/1.73m2); HDL Cholesterol 47 mg/dL (40-60); Triglyceride 132 mg/dL (<150)
== END 2022-06-29 03:36 | disposition home or self-care (01) ==
LOC: LBO 03:35
PROVIDERS: PCP Nurse Practitioner Family; Visit Provider Nurse Practitioner Family
DX: R74.8 Abnormal levels of other serum enzymes (principal); Z13.220 Encounter for screening for lipoid disorders
CPT/HCPCS: 36415; 80061; 82565

== ENCOUNTER 2022-10-14 08:04 | Emergency (ER) | payer OTHER, SELFPAY ==
--- NOTE | 2022-10-14 08:00 | RT.EKG_ITS ---
APPROVED REPORT Exam: Resting ECG Reason for Exam: sob Patient Location: E HR:106 bpm ECG Measurements Heart Rate 106 AXIS VA 125 P 43 QRSd 86 QRS 11 QT 351 T 20 QTc 466 Conclusion Sinus tachycardia...rate> 99 Low voltage, precordial leads...precordial leads <1.0mV. Sinus. No STEMI. I have reviewed and interpreted ECG and agree with software generated interpretation.
[2022-10-14 08:10] VITALS: BP 130/85; PULSE 105; RESP 18; TEMP 37.4; O2SAT 98
[2022-10-14] MEDS: predniSONE 20 MG TAB 40 MG PO (08:40)
[2022-10-14 09:11] LABS: Abs Immature Grans 0.03 10^3/uL (0.0-0.06); Absolute Basophil Count 0.02 10^3/uL (0.0-0.2); Absolute Eosinophil Count 0.12 10^3/uL (0.0-0.7); Absolute Lymphocyte Count 2.47 10^3/uL (1.2-3.4); Absolute Monocyte Count 0.56 10^3/uL (0.1-0.8); Absolute Neutrophil Count 6.81 10^3/uL (1.2-6.7); Basophils % 0.2; Eosinophils % 1.2; HCT 42.6 % (36.0-46.0); HGB 13.9 g/dL (11.2-15.7); Immature Grans % 0.3; Lymphocytes % 24.7; MCH 30.5 pg (27.0-33.0); MCHC 32.6 % (32.0-36.0); MCV 94 fL (80-95); MPV 10.1 fL (8.0-11.0); Monocytes % 5.6; Platelet Count 266 10^3/uL (130-400); RBC 4.55 10^6/uL (3.93-5.22); RDW 11.9 % (11.7-14.6); RDW-SD 41.1 fL; WBC 10.01 10^3/uL (4.4-10.8)
[2022-10-14 09:18] LABS: ALT 26 U/L (14-59); AST 20 U/L (15-37); Albumin 3.8 g/dL (3.4-5.0); Alkaline Phosphatase 58 U/L (46-116); Anion Gap 8.7 mmol/L (3-11); BUN 13 mg/dL (7-18); Bilirubin, Total 1.1 mg/dL (0.2-1.0); CO2 26.3 mmol/L (21.0-32.0); Calcium 8.9 mg/dL (8.5-10.1); Chloride 104 mmol/L (98-107); Estimated GFR 75.81 (mL/min/1.73m2); Glucose 124 mg/dL (74-106); Potassium 3.6 mmol/L (3.5-5.1); Sodium 139 mmol/L (136-145); Total Protein 7.4 g/dL (6.4-8.2)
[2022-10-14 09:35] LABS: D-Dimer 442 ng/mlFEU (<500)
[2022-10-14 09:39] LABS: COVID-19 PCR Negative (Negative); Influenza A PCR Negative (Negative); Influenza B PCR Negative (Negative); RSV PCR Negative (Negative)
[2022-10-14 09:40] LABS: Source Nasopharynx
--- NOTE | 2022-10-14 09:51 | DI.RAD_ITS ---
Exam(s) XR PORTABLE CHEST AP EXAM: XR PORTABLE CHEST AP CLINICAL HISTORY: shortness of breath, persistent cough TECHNIQUE: 2D digital imaging was performed. COMPARISON: CR XR CHEST 2V PA LATERAL from 08/14/2021 FINDINGS: LUNGS: Clear. No pleural abnormality seen. HEART: Normal size. AORTA: Normal diameter. BONES: Unremarkable for age. Soft tissues: Unremarkable. IMPRESSION: No acute findings. DATA REPOSITORY: RADIATION DOSE DELIVERED:
--- NOTE | 2022-10-14 09:57 | ED.GENADUL_ITS ---
Discharge Plan Disposition Patient Disposition: Home Condition: Stable Discharge Details Clinical Impression: Upper respiratory infection Primary Care Provider: Nahid Potter ED Provider: Karie Mckeon Home Meds and New Rx's Prescriptions: New prednisone 20 mg tablet 40 mg PO ONCE Qty: 10 0RF Continued albuterol sulfate [ProAir HFA] 90 mcg/actuation HFA aerosol inhaler 2 puff Inhalation Q4H PRN PRN (Reason: bronchospasm) Qty: 1 0RF propranolol 20 mg tablet 20 mg PO BID Qty: 180 3RF prochlorperazine maleate 5 mg tablet See Rx Instructions PO TID PRN (Reason: headaches and/or nausea) Qty: 30 3RF Rx Instructions: Take 1-2 tablets PO three times a day PRN; fluticasone propionate [Flovent HFA] 110 mcg/actuation HFA aerosol inhaler 1 puff inhalation BID Qty: 12 3RF epinephrine 0.3 mg/0.3 mL auto-injector 0.3 mg IM ONCE Qty: 2 0RF Discharge Instructions Instructions: Upper Respiratory Infection (ED) Additional Instructions: Prednisone as prescribed Use your inhaler, 2 puffs every 4-6 hours as needed for cough, wheeze, shortness of breath Increase fluids Humidifier in your room Return earlier should you have chest pain, worsening shortness of breath, or with any new or progressing symptoms Recommendation for outpatient follow-up with your primary care physician May use [id number] cough and cold medications tolerated Referrals: Nahid Potter, [facility] [Primary Care Provider] - Medical Decision Making Patient recently treated for pneumonia with Augmentin although I suspect she has viral etiology of complaint Her chest x-ray is within normal limits. Her lungs are clear to auscultation She denies any chest pain or shortness of breath and has a negative dimer, low suspicion for pulmonary embolism clinically Negative completed Will treat with prednisone to assist with shortness of breath Encouraged [id number] supportive care EKG does not show evidence of acute abnormality per my review and attendings interpretation Afebrile and nontoxic Will follow-up with primary care physician in the outpatient setting Placed on 5 days of prednisone. Medical Records Medical records reviewed: Yes I reviewed the patient's medical records. Lab Data Lab results reviewed: Yes I reviewed the patient's lab results. HPI General Date/Time Provider Initiated Documentation: 10/14/22 08:15 . HPI Narrative: This 32-year-old female presents with report of upper respiratory symptoms which been persistent since the last week in the summer. Denies any fever or chills. States that in September during the first week she was placed on Augmentin for clinical diagnosis of pneumonia, she did not have an x-ray at that time. She st ates this did not improve her symptoms. She states she uses Flovent daily and albuterol every 4 hours She describes supportive care. Denies any chest pain or shortness of breath. Related Data Home Medications Medication Instructions Recorded Confirmed epinephrine 0.3 mg/0.3 mL 0.3 mg (0.3 mL) IM ONCE #2 ea 11/12/18 10/14/22 injection, auto-injector prochlorperazine maleate 5 mg See Rx Instructions PO TID PRN 06/10/22 10/14/22 tablet headaches and/or nausea #30 tabs propranolol 20 mg tablet 20 mg PO BID #180 tabs 06/10/22 10/14/22 albuterol sulfate 90 mcg/actuation 2 puff inhalation Q4H PRN PRN 09/21/22 10/14/22 aerosol inhaler (ProAir HFA) bronchospasm #1 inh fluticasone propionate 110 1 puff inhalation BID #12 grams 09/21/22 10/14/22 mcg/actuation HFA aerosol inhaler (Flovent HFA) prednisone 20 mg tablet 40 mg PO ONCE #10 tabs 10/14/22 Previous Rx's Medication Instructions Recorded epinephrine 0.3 mg/0.3 mL 0.3 mg (0.3 mL) IM ONCE #2 ea 11/12/18 injection, auto-injector prochlorperazine maleate 5 mg See Rx Instructions PO TID PRN 06/10/22 tablet headaches and/or nausea #30 tabs propranolol 20 mg tablet 20 mg PO BID #180 tabs 06/10/22 albuterol sulfate 90 mcg/actuation 2 puff inhalation Q4H PRN PRN 09/21/22 aerosol inhaler (ProAir HFA) bronchospasm #1 inh fluticasone propionate 110 1 puff inhalation BID #12 grams 09/21/22 mcg/actuation HFA aerosol inhaler (Flovent HFA) prednisone 20 mg tablet 40 mg PO ONCE #10 tabs 10/14/22 Allergies Allergy/AdvReac Type Severity Reaction Status Date / Time horse radish Allergy Severe Uncoded 10/14/22 08:18 blue cheese Allergy Uncoded 10/14/22 08:18 General Stated Complaint: RespSymp RAN: 3 PFSH All Active Problems (Updated 10/14/22 @ 10:00 by TRELL Chacko) Upper respiratory infection (Acute) Plantar warts (Acute) Right shoulder pain (Acute) Anxiety (Chronic) Umbilical hernia (Acute) Irritant contact dermatitis due to other agents (Acute) Migraine (Acute) Nocturnal headaches (Acute) Medical History (Updated 10/14/22 @ 10:00 by TRELL Chacko) Allergic reaction Blue cheese, horse raddish COVID (~07/2021) again + on 04/27/22. Treated with Molnupiravir. Cubital tunnel syndrome History of tobacco use Quit in 2011 Incomplete tear of right rotator cuff Repaired in 2017 Surgical History (Updated 02/11/22 @ 15:17 by Breanna Ovalle) H/O wisdom tooth extraction Hx of tonsillectomy Family History (Updated 02/11/22 @ 12:09 by Breanna Ovalle) Mother No problems noted. Father No problems noted. Brother No problems noted. Son No problems noted. Maternal Grandfather , 67 No problems noted. Daughter No problems noted. Paternal Grandfather , 83 No problems noted. Maternal Grandmother No problems noted. Paternal Grandmother , 79 No problems noted. 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 [employer] Pets and animals: Yes Pets and animals: cat(s), dog(s) and bird(s) Sexually active: Yes Do you think of yourself as: straight/heterosexual Current gender identity: female What is your relationship status?: How often do you talk on the phone with friends or family?: three or more times per week How often do you get together with friends or relatives?: once per week How often do you attend religious or confucianism services?: decline to answer Do you belong to any clubs or organized social groups?: no Panel score (0-1 are the most socially isolated patients): 2 What type of physical activity do you participate in: walking Duration: > 90 minutes/day Frequency: daily Sylvia/Catholic: No preference Seatbelt use: always Helmet use: Yes Helmet use: always Drive intox 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 Date GA/Weeks # Preg Succ Route Wgt Sex Labor Lgth Anesth esia Location Prov Complic 06/20/07 40 No vaginal 3770.487 g Male 38 11/08/09 40 No vaginal 3997.283 g Female Delivery Date: 06/20/07 Last Updated by: Mariangel Garza baby broke away from placenta. Pt induced Delivery Date: 11/08/09 Last Updated by: Mariangel Garza baby stuck in canal Exam Const General: cooperative and comfortable Orientation: alert and oriented x3 Eyes Sclera: sclerae normal Resp Effort & Inspection: normal respiratory effort Auscultation: clear to auscultation bilaterally Cardio Rate: regular rate Rhythm: regular rhythm Skin General skin exam: no rashes or lesions noted Neuro General: patient alert and patient oriented x3 Extrem Other: Neurovascularly intact, no past swelling or tenderness Course Vital Signs Vital signs: Vital Signs Temperature 37.4 C 10/14/22 08:10 Pulse 105 H 10/14/22 08:10 Respiratory Rate 18 10/14/22 08:10 Blood Pressure 130/85 10/14/22 08:10 Pulse Oximetry 98 10/14/22 08:10 Temperature 37.4 C 10/14/22 08:10 Temperature Source Oral 10/14/22 08:10 Pulse 105 H 10/14/22 08:10 Respiratory Rate 18 10/14/22 08:10 Respiratory Effort 10/14/22 08:19 Respiratory Depth Normal 10/14/22 08:19 Blood Pressure 130/85 10/14/22 08:10 Pulse Oximetry 98 10/14/22 08:10 Oxygen Delivery Method Room Air 10/14/22 08:10 Oxygen Flow Rate 0 10/14/22 08:10 Lab/Test Results Lab/Test Results: Laboratory Tests Range/Units 10/14/22 10/14/22 10/14/22 08:45 08:45 08:45 WBC (4.4-10.8) 10^3/uL 10.01 RBC (3.93-5.22) 10^6/uL 4.55 Hgb (11.2-15.7) g/dL 13.9 Hct (36.0-46.0) % 42.6 MCV (80-95) fL 94 MCH (27.0-33.0) pg 30.5 MCHC (32.0-36.0) % 32.6 RDW (11.7-14.6) % 11.9 Plt Count (130-400) 10^3/uL 266 MPV (8.0-11.0) fL 10.1 Immature Gran % 0.3 Neutrophils % 68.0 Lymphocytes % 24.7 Monocytes % 5.6 Eosinophils % 1.2 Basophils % 0.2 Nucleated RBC % (0.0-0.3) % 0.0 Absolute Neutrophils (1.2-6.7) 10^3/uL 6.81 H Absolute Lymphocytes (1.2-3.4) 10^3/uL 2.47 Absolute Monocytes (0.1-0.8) 10^3/uL 0.56 Absolute Eosinophils (0.0-0.7) 10^3/uL 0.12 Absolute Basophils (0.0-0.2) 10^3/uL 0.02 D-Dimer (<500) ng/mlFEU 442 Sodium (136-145) mmol/L 139 Potassium (3.5-5.1) mmol/L 3.6 Chloride (98-107) mmol/L 104 Carbon Dioxide (21.0-32.0) mmol/L 26.3 Anion Gap (3-11) mmol/L 8.7 BUN (7-18) mg/dL 13 Creatinine (0.55-1.02) mg/dL 1.0 Est GFR (CKD-EPI 2020) (mL/min/1.73m2) 75.81 Glucose (74-106) mg/dL 124 H Calcium (8.5-10.1) mg/dL 8.9 Total Bilirubin (0.2-1.0) mg/dL 1.1 H AST (15-37) U/L 20 ALT (14-59) U/L 26 Alkaline Phosphatase (46-116) U/L 58 Total Protein (6.4-8.2) g/dL 7.4 Albumin (3.4-5.0) g/dL 3.8 COVID-19 Source SARS-CoV-2 (PCR) (Negative) Influenza Type A (PCR) (Negative) Influenza Type B (PCR) (Negative) RSV (PCR) (Negative) Range/Units 10/14/22 08:50 WBC (4.4-10.8) 10^3/uL RBC (3.93-5.22) 10^6/uL Hgb (11.2-15.7) g/dL Hct (36.0-46.0) % MCV (80-95) fL MCH (27.0-33.0) pg MCHC (32.0-36.0) % RDW (11.7-14.6) % Plt Count (130-400) 10^3/uL MPV (8.0-11.0) fL Immature Gran % Neutrophils % Lymphocytes % Monocytes % Eosinophils % Basophils % Nucleated RBC % (0.0-0.3) % Absolute Neutrophils (1.2-6.7) 10^3/uL Absolute Lymphocytes (1.2-3.4) 10^3/uL Absolute Monocytes (0.1-0.8) 10^3/uL Absolute Eosinophils (0.0-0.7) 10^3/uL Absolute Basophils (0.0-0.2) 10^3/uL D-Dimer (<500) ng/mlFEU Sodium (136-145) mmol/L Potassium (3.5-5.1) mmol/L Chloride (98-107) mmol/L Carbon Dioxide (21.0-32.0) mmol/L Anion Gap (3-11) mmol/L BUN (7-18) mg/dL Creatinine (0.55-1.02) mg/dL Est GFR (CKD-EPI 2020) (mL/min/1.73m2) Glucose (74-106) mg/dL Calcium (8.5-10.1) mg/dL Total Bilirubin (0.2-1.0) mg/dL AST (15-37) U/L ALT (14-59) U/L Alkaline Phosphatase (46-116) U/L Total Protein (6.4-8.2) g/dL Albumin (3.4-5.0) g/dL COVID-19 Source Nasopharynx SARS-CoV-2 (PCR) (Negative) Negative Influenza Type A (PCR) (Negative) Negative Influenza Type B (PCR) (Negative) Negative RSV (PCR) (Negative) Negative POC- Test(urine) Negative PAWSS Have you Been Recently Intoxicated or Drunk Within the Last 30 days?: No Have you Ever Experienced Previous Episodes of Alcohol Withdrawal?: No Have you ever Experienced Withdrawal Seizures?: No Have you ever Experienced Delirium Tremens(DT)s?: No Have you ever undergone Alcohol Rehabilitation Treatment (i.e, inpt ot outpatient treatment programs)?: No Have you ever Experienced Blackouts?: No Have you ever Combined Alcohol with other Downers within the last 90 days?: No Have you ever Combined Alcohol with any other Substance of Abuse during the last 90 days?: No Positive Blood Alcohol level on Presentation? [PCS.BAL]: No Evidence of Increased Autonomic Activity (i.e. HR>120, tremor, sweating, agitation, nausea)?: No Result: 0
== END 2022-10-14 10:07 | disposition home or self-care (01) ==
PROVIDERS: Emergency Provider Physician Assistant; PCP Nurse Practitioner Family
DX: J06.9 Acute upper respiratory infection, unspecified (principal); J18.9 Pneumonia, unspecified organism; Z86.16 Personal history of COVID-19
CPT/HCPCS: 36415; 80053; 81025; 87637; 93005; 99283; 71045; 85025; 85379; 93010; 99285; J7512

== ENCOUNTER 2022-10-27 16:08 | Outpatient (REF) | payer OTHER, SELFPAY ==
[2022-10-27 15:15] LABS: Hemoglobin A1C 5.4 % (<5.7)
[2022-10-27 15:24] LABS: TSH (W/Ref FT4) 1.78 uIU/mL (0.36-3.74)
[2022-10-28 09:41] LABS: IgA 111 mg/dL (85-499); IgG 849 mg/dL (610-1616); IgM 126 mg/dL (35-242)
[2022-10-28 10:16] LABS: IgE 30 IU/mL (<158)
== END 2022-10-27 16:09 | disposition home or self-care (01) ==
LOC: LBN 16:08
PROVIDERS: PCP Nurse Practitioner Family; Visit Provider Student in an Organized Health Care Education/Training Program
DX: U09.9 Post COVID-19 condition, unspecified (principal); R06.09 Other forms of dyspnea; Z79.899 Other long term (current) drug therapy
CPT/HCPCS: 82784; 82785; 82787; 83036; 84443

== ENCOUNTER 2022-11-06 02:38 | Outpatient (CLI) | payer OTHER, SELFPAY ==
[2022-11-06] MEDS: Albuterol HFA 18 GM 200 PUFF INH IH (09:05)
[2022-11-06] MEDS: Inhaler, Assist Device 1 EACH MC (09:05)
--- NOTE | 2022-11-09 15:13 | W.PFT ---
Date of service: 11/06/22 Time of Service: 08:03 Pulmonary Function Test Result Requesting Provider Duchene Indications: [facility] Interpretation Spirometry: There is no airflow limitation. There is no significant bronchodilator response. Lung Volumes: Normal lung volumes Diffusion Capacity: Normal diffusion Airway Pressure: Normal airways resistance. Impression Normal pulmonary function testing Clinical Correlation therefore is recommended.
== END 2022-11-06 02:39 | disposition home or self-care (01) ==
LOC: RT 02:39
PROVIDERS: PCP Nurse Practitioner Family; Visit Provider Student in an Organized Health Care Education/Training Program
DX: U09.9 Post COVID-19 condition, unspecified (principal)
CPT/HCPCS: 94060; 94726; 94729

== ENCOUNTER 2022-12-29 11:53 | Emergency (ER) | payer OTHER, SELFPAY ==
[2022-12-29 11:58] VITALS: BP 116/77; TEMP 36.7; O2SAT 97
--- NOTE | 2022-12-29 12:27 | W.ED.GENAD ---
Discharge Plan Disposition Patient Disposition: Home Discharge Details Clinical Impression: MCL sprain of left knee Primary Care Provider: Nahid Potter ED Provider: Cristian Marie Home Meds and New Rx's Prescriptions: Continued albuterol sulfate [ProAir HFA] 90 mcg/actuation HFA aerosol inhaler 2 puff Inhalation Q4H PRN PRN (Reason: bronchospasm) Qty: 1 0RF fluticasone propion-salmeterol [Advair HFA] 230-21 mcg/actuation HFA aerosol inhaler 2 puff inhalation BID Qty: 12 5RF sertraline 50 mg tablet 50 mg PO DAILY Qty: 60 0RF propranolol 20 mg tablet 20 mg PO BID Qty: 180 3RF prochlorperazine maleate 5 mg tablet See Rx Instructions PO TID PRN (Reason: headaches and/or nausea) Qty: 30 3RF Rx Instructions: Take 1-2 tablets PO three times a day PRN; epinephrine 0.3 mg/0.3 mL auto-injector 0.3 mg IM ONCE Qty: 2 0RF Discharge Instructions Instructions: Knee Sprain (ED) Additional Instructions: You may continue to use [id number] ibuprofen as discussed. Also apply ice and rest. Please use crutches for the next 2 to 4 days and then you may slowly advance activity as tolerated by pain and discomfort. Please call the orthopedic office tomorrow for arrangement of your follow-up appointment and if you have any severe worsening of symptoms feel free to return to the emergency department for recheck. Stand Alone Forms: Work Release Referrals: [facility] [Provider Group] (Please call the office tomorrow afternoon for arrangement of follow-up appointment) Discharge Data Discharge Date/Time-TO BE ENTERED AT DEPARTURE: 12/29/22 12:45 Medical Decision Making Patient presenting to the emergency department for chief complaint of left knee sprain. Patient states she was kneeling on the ground with a child while at work around 9:40 AM and then simply went to stand up and with standing and slightly or twisting type motion she felt a pop in her left knee and immediately started having some medial knee pain with radiation of the pain. She does state some tingling sensation to her foot but denies any pain or discomfort distal to her knee. Physical exam shows medial laxity of the MCL with significant amount of pain upon testing. No bony prominence discomfort, patient can somewhat bear weight but is very painful and exam is otherwise unremarkable with pressure sensation pulses and temperature appropriate distal to injury. I highly suspect a MCL sprain given mechanism of injury but potential also does exist for a meniscus type injury. Given this I do not feel that radiological imaging is necessary at this time so we will place patient in a hinged knee brace and crutches along with work duty restrictions. Patient will continue to take NSAIDs for discomfort and was placed on a Ortho follow-up list for Workmen's Comp. follow-up of her knee injury. After discussion of diagnosis and plan of care patient has no further needs, questions, or concerns and states clear understanding to return to the emergency department for any worsening symptoms. This documentation was generated using [employer] system, please disregard any oddities of phrase or misspellings. HPI General Mode of arrival: ambulatory. Date/Time Provider Initiated Documentation: 12/29/22 12:12. Limitations to Documentation: no limitations. Information obtained by: patient and RN notes reviewed. History of Present Illness 32 year old F presents to the emergency department with the chief complaint of Left knee injury, described as moderate, with intensity rated at 6. Quality is described as aching and sharp, and is localized to the left and lower extremity. Patient distal. Patient started experiencing this hour(s) (6) and it has been constant. Immobilization improves symptom(s), Movement worsens symptoms . Patient notes no other symptoms.. Patient did receive the following treatments prior to arrival, none Related Data Home Medications Medication Instructions Recorded Confirmed epinephrine 0.3 mg/0.3 mL 0.3 mg (0.3 mL) IM ONCE #2 ea 11/12/18 12/17/22 injection, auto-injector prochlorperazine maleate 5 mg See Rx Instructions PO TID PRN 06/10/22 12/17/22 tablet headaches and/or nausea #30 tabs propranolol 20 mg tablet 20 mg PO BID #180 tabs 06/10/22 12/17/22 albuterol sulfate 90 mcg/actuation 2 puff inhalation Q4H PRN PRN 09/21/22 12/17/22 aerosol inhaler (ProAir HFA) bronchospasm #1 inh fluticasone propionate 230 2 puff inhalation BID #12 grams 10/27/22 12/17/22 mcg-salmeterol 21 mcg/actuation HFA inhaler (Advair HFA) sertraline 50 mg tablet 50 mg PO DAILY #60 tabs 11/11/22 12/17/22 Previous Rx's Medication Instructions Recorded epinephrine 0.3 mg/0.3 mL 0.3 mg (0.3 mL) IM ONCE #2 ea 11/12/18 injection, auto-injector prochlorperazine maleate 5 mg See Rx Instructions PO TID PRN 06/10/22 tablet headaches and/or nausea #30 tabs propranolol 20 mg tablet 20 mg PO BID #180 tabs 06/10/22 albuterol sulfate 90 mcg/actuation 2 puff inhalation Q4H PRN PRN 09/21/22 aerosol inhaler (ProAir HFA) bronchospasm #1 inh fluticasone propionate 230 2 puff inhalation BID #12 grams 10/27/22 mcg-salmeterol 21 mcg/actuation HFA inhaler (Advair HFA) sertraline 50 mg tablet 50 mg PO DAILY #60 tabs 11/11/22 Allergies Allergy/AdvReac Type Severity Reaction Status Date / Time horse radish Allergy Severe Uncoded 12/17/22 15:40 blue cheese Allergy Uncoded 12/17/22 15:40 General Stated Complaint: Orthopedic RAN: 4 Review of Systems Narrative: 6 systems reviewed and unremarkable except what is marked below. 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 Treated with Molnupiravir. Cubital tunnel syndrome History of tobacco use Quit in 2011 Incomplete tear of right rotator cuff Repaired in 2017 Surgical History H/O wisdom tooth extraction Hx of tonsillectomy Family History Mother No problems noted. Father No problems noted. Brother No problems noted. Son No problems noted. Maternal Grandfather , 67 No problems noted. Daughter No problems noted. Paternal Grandfather , 83 No problems noted. Maternal Grandmother No problems noted. Paternal Grandmother , 79 No problems noted. 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[employer] Pets and animals: Yes Pets and animals: cat(s), dog(s) and bird(s) Sexually active: Yes Do you think of yourself as: straight/heterosexual Current gender identity: female What is your relationship status?: How often do you talk on the phone with friends or family?: three or more times per week How often do you get together with friends or relatives?: once per week How often do you attend roman catholic or judaism services?: decline to answer Do you belong to any clubs or organized social groups?: no Panel score (0-1 are the most socially isolated patients): 2 What type of physical activity do you participate in: walking Duration: > 90 minutes/day Frequency: daily Sylvia/Zoroastrian: No preference Seatbelt use: always Helmet use: Yes Helmet use: always 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 Date GA/Weeks # Preg Succ Route Wgt Sex Labor Lgth Anesthesia Location Prov Complic 06/20/07 40 No vaginal 3770.487 g Male 38 11/08/09 40 No vaginal 3997.283 g Female Delivery Date: 06/20/07 Last Updated by: Mariangel Garza baby broke away from placenta. Pt induced Delivery Date: 11/08/09 Last Updated by: Mariangel Garza baby stuck in canal Exam Const General: cooperative, no acute distress and not ill appearing Orientation: alert, awake and oriented x3 HENMT Mouth: moist mucous membranes Resp Effort & Inspection: normal respiratory effort, able to speak in complete sentences and no respiratory distress Cardio Rate: regular rate Rhythm: regular rhythm Pulses: normal peripheral pulses Skin General skin exam: no rashes or lesions noted Neuro General: patient alert, patient awake, patient oriented x3, moves all extremities and no focal motor deficits Sensory Exam: no sensory deficits noted Extrem General: normal exam except as noted Left lower extremity: knee Details: tenderness Location: of the medial joint line, abnormal ROM Details: pain with active ROM and pain with passive ROM; able to extend lower leg actively, knee ligament exam normal Details: anterior drawer test normal, posterior drawer test normal and varus stress test normal and knee ligament exam abnormal Details: valgus stress test Details: both pain and laxity noted; no lacerations, no ecchymosis and no crepitus Course Vital Signs Vital signs: Vital Signs Temperature 36.7 C 12/29/22 11:58 Blood Pressure 116/77 12/29/22 11:58 Pulse Oximetry 97 12/29/22 11:58 Temperature 36.7 C 12/29/22 11:58 Temperature Source Oral 12/29/22 11:58 Respiratory Effort Normal, Non-Labored 12/29/22 12:01 Blood Pressure 116/77 12/29/22 11:58 Blood Pressure Position Sitting 12/29/22 11:58 Pulse Oximetry 97 12/29/22 11:58 Oxygen Delivery Method Room Air 12/29/22 11:58 Oxygen Flow Rate 0 12/29/22 11:58 Pain Level 6 12/29/22 11:58
== END 2022-12-29 12:45 | disposition home or self-care (01) ==
PROVIDERS: Emergency Provider Nurse Practitioner Family; PCP Nurse Practitioner Family
DX: S83.412A Sprain of medial collateral ligament of left knee, initial encounter (principal); X58.XXXA Exposure to other specified factors, initial encounter
CPT/HCPCS: 29505; 99283

== ENCOUNTER 2023-01-05 14:46 | Outpatient (CLI) | payer OTHER, SELFPAY ==
--- NOTE | 2023-01-05 14:30 | DI.RAD_ITS ---
Exam(s) XR KNEE LT 3V AP,LAT,RAYMUNDO EXAM: XR KNEE LT 3V AP,LAT,RAYMUNDO CLINICAL HISTORY: left knee pain. TECHNIQUE: 2D digital imaging was performed of the left knee. Three images were obtained. Merchant ,AP and lateral views were obtained. COMPARISON: No priors for comparison. FINDINGS: BONES: No acute fracture is present. No bony destructive lesion is seen. JOINTS: The knee is normally aligned. No joint effusion is seen. SOFT TISSUE: Normal. IMPRESSION: Normal radiographs of the left knee. DATA REPOSITORY: RADIATION DOSE DELIVERED:
== END 2023-01-05 14:47 | disposition home or self-care (01) ==
LOC: DIORS 14:47
PROVIDERS: PCP Nurse Practitioner Family; Visit Provider Student in an Organized Health Care Education/Training Program
DX: M25.562 Pain in left knee; S83.412A Sprain of medial collateral ligament of left knee, initial encounter
CPT/HCPCS: 73562

== ENCOUNTER 2023-01-12 13:30 | Outpatient (CLI) | payer OTHER, SELFPAY ==
--- NOTE | 2023-01-12 13:45 | DI.MRI_ITS ---
Exam(s) MR LOWER JOINT LT WO EXAM: MR LOWER JOINT LT WO CLINICAL HISTORY: PAIN, INJURY S83.412A SPRAIN LEFT KNEE S83.242A TEAR MEDIAL MENISCUS TECHNIQUE: Multiplanar multisequence MRI of the knee was performed. There is some motion artifact. COMPARISON: CR XR KNEE LT 3V AP,LAT,RAYMUNDO from 01/05/2023 FINDINGS: EFFUSION: There is a small amount of increased joint fluid. There is no large joint effusion and the re is no Payan cyst in the popliteal fossa. MARROW:There is no evidence of fracture nor prominent bone contusion. There is some mild subarticula r edema in the medial tibial plateau which is probably a developing degenerative subarticular cyst. There are no significant osseous lesions. PATELLOFEMORAL COMPARTMENT: The quadriceps tendon is intact. The patellar ligament is intact. There appears to be mild thinning of the retropatellar cartilage over medial facet although this may be exaggerated by motion artifact on the axial fat sat sequence. There is no deep fissure in this ca rtilage and there is no osteochondral defect nor abnormal intraosseous signal in the patella.There is no intraosseous signal to suggest recent patellar dislocation. There are no patellar retinacular tea rs. CRUCIATE LIGAMENTS: The anterior cruciate ligament is intact.The posterior cruciate ligament is intac t. MEDIAL COMPARTMENT/MEDIAL MENISCUS: There are no tears of the medial meniscus evident.. However, there does appear to be some [place] cartilage loss over the main weight-bearing surface of the medial femoral condyle. There is a small subarticular focus of signal abnormality in the main w eight-bearing surface of medial femoral condyle and also another similar size 3 millimeter focus in t he subjacent tibial plateau. No prominent bone edema. No unstable osteochondral defect evident. MEDIAL COLLATERAL LIGAMENT: Intact LATERAL COMPARTMENT/LATERAL MENISCUS: There is no evidence of lateral meniscal tear.There are no madhavi dral defects, osteochondral defects, subarticular marrow edema, nor osteophytes evident. ILIOTIBIAL BAND: Intact LATERAL COLLATERAL LIGAMENT COMPLEX: The fibular collateral ligament is intact. The biceps femoris t endon is intact.Popliteus muscle and tendon are intact. IMPRESSION: 1. There are no meniscal tears, cruciate ligament tears, nor collateral ligament tears. 2. Mild degenerative cartilage changes are noted in the medial compartment as described above. There appears to be a small developing subarticular cyst in the medial tibial plateau and similar size sub articular finding over the main weight-bearing surface of the medial femoral condyle. There is no un stable osteochondral defect evident. 3. Mild thinning of the retropatellar cartilage over the medial facet noted but I feel this is probab ly exaggerated due to motion artifact here. There is no abnormal intraosseous signal in the patella. Quadriceps and patellar ligament are unremarkable. 4. Small amount of increased joint fluid. No large joint effusion. No Payan cyst. DATA REPOSITORY:
== END 2023-01-12 13:50 ==
LOC: DI 13:30
PROVIDERS: PCP Nurse Practitioner Family; Visit Provider Student in an Organized Health Care Education/Training Program
DX: S83.242A Other tear of medial meniscus, current injury, left knee, initial encounter (principal); S83.412A Sprain of medial collateral ligament of left knee, initial encounter
CPT/HCPCS: 73721

== ENCOUNTER 2023-05-27 11:18 | Day surgery (SDC) | payer OTHER, SELFPAY ==
[2023-05-27] VITALS (7 sets, daily range): BP systolic 98–124; BP diastolic 42–72; PULSE 78–99; RESP 11–17; TEMP 36.6–37.2; O2SAT 96–99; BMI 42.7
--- NOTE | 2023-05-27 11:43 | W.PM.DSUDISC ---
Date of service: 05/27/23 Time of Service: 14:00 Discharge Plan Disposition Patient Disposition: Home Condition: Stable Discharge Details Reason For Visit: CHONDROMALACIA Attending Provider: Ravinder Jane Primary Care Provider: Nahid Potter Home Meds and New Rx's Prescriptions: New naproxen 250 mg tablet 250 - 500 mg PO BID PRNQty: 40 0RF Rx Instructions: take with a meal aspirin 81 mg tablet,delayed release (DR/EC) 81 mg PO DAILY 14 Days Qty: 14 0RF tramadol 50 mg tablet 50 mg PO Q8H PRN (Reason: severe pain) Qty: 9 0RF Continued Tylenol Extra Strength 500 mg powder in packet 500 mg PO TID Qty: 90 0RF venlafaxine 75 mg capsule,extended release 24hr 75 mg PO QAM Qty: 30 2RF prochlorperazine maleate [Compazine] 5 mg tablet See Rx Instructions PO TID PRN (Reason: headaches and/or nausea) Rx Instructions: Take 1-2 tablets PO three times a day PRN; epinephrine 0.3 mg/0.3 mL auto-injector 0.3 mg IM ONCE Qty: 2 0RF Discontinued ibuprofen [IBU] 800 mg tablet 800 mg PO TID PRN (Reason: pain) Qty: 90 0RF Discharge Instructions Additional Instructions: Surgery: Left knee arthroscopy with chondroplasty and synovectomy Activity: Weightbearing as tolerated. Advance range of motion as comfort allows. Discontinue knee brace and crutches needed as soon as comfortable. Recommend avoiding sports, pivoting, and squatting for 6-8 weeks. A physical therapy prescription will be sent electronically to start in 2 to 3 weeks. Prescriptions: Aspirin 81 mg take 1 daily to prevent a blood clot for 14 days Naproxen 250 mg take 1-2 every 12 hours with a meal as needed for moderate pain (do not use at same time as ibuprofen) Tramadol 50 mg take 1 every 6-8 hours as needed for severe pain You may use [id number] Tylenol (acetaminophen) as needed for mild pain. These pain medications may be taken all at once or in different combinations as needed. Also, recommend Colace (docusate) as a stool softener as surgery and pain medicine cause constipation. You may try judz-dow-szpyegh diphenhydramine (Benadryl) 25-50 mg nightly as a sleep aid Dressings: Leave dressing in place for 3 days. May then remove and leave open to air or cover incisions with Band-Aids. Leave the sticky Steri-Strips in place until they fall off or remove them after you shower. May shower after 5 days. Follow-up: 10-[address] Jane You may take off the leg compression stockings this evening at home. You may also leave them on a few days longer if you have a history of leg swelling or edema. Let us know right away if you develop any redness, drainage, fevers, chest pain, or trouble breathing. Do not drink alcohol or drive for at least 24 hours after anesthesia. Please call the office during business hours with any questions or concerns. Discharge Orders Discharge Orders: Discharge Order (Routine); Ordered 05/27/23 Ordered By: Ravinder Jane DS: Diagnosis Discharge Diagnosis (1) Internal derangement of left knee: Status: Acute
--- NOTE | 2023-05-27 11:45 | ROE_ITS ---
Date of service: 05/27/23 Time of Service: 13:00 Operative Note Operative Note DATE OF PROCEDURE: 05/27/23 PRE-OP DIAGNOSIS: Left knee 1. Chondromalacia POST-OP DIAGNOSIS: same 1. Chondromalacia 2. Loose bodies 3. Synovitis PROCEDURE: Left knee 1. Extensive synovectomy, CPT #31068: Suprapatellar, anterior and intercondylar, medial, and lateral; Removal of loose bodies 2. Chondroplasty, CPT #64275: Medial femoral condyle SURGEON: Ravinder Jane SENIOR NET APPLICATION DEVELOPER: Santiago Harry ANESTHESIA TYPE: Local By Surgeon and General LMA/ETT Refer to Anesthesia Record PATHOLOGY: none sent TOURNIQUET TIME: 0 Patient was transported to: PACU Patient's condition: stable Indications: Please see complete medical record for details. Findings: Exam under anesthesia: Full range of motion, no instability Arthroscopic findings: Moderately inflamed, relatively diffuse synovitis and ab undant fat pad. Multiple small chondral loose bodies. Diffuse medial compartment chondromalacia mild to moderate with some impending loose chondral fragments on the distal to posterior aspects of the medial femoral condyle. Intact medial meniscus. Intact lateral meniscus and lateral compartment. Intact ACL. Procedure Description: In the operating room, general anesthesia was induced. The patient was positioned supine on the operating room table. All bony prominences were well- padded. Preoperative antibiotics were administered. The knee was prepped and draped in the usual sterile fashion. The correct patient, procedure, and side of the procedure were all verified prior to incision. Exam under anesthesia was performed. 10 cc of 0.25% bupivacaine containing epinephrine was infiltrated about the planned anteromedial and anterolateral knee arthroscopy portals. The portals were established and a complete diagnostic arthroscopy was performed with relevant findings detailed above. As expected, the medial compartment showed degenerative changes. Mechanical shaver was used following the diagnostic arthroscopy to remove multiple loose small chondral fragments from the suprapatellar space in the medial compartment. Mechanical shaver was then used to resect adhesions in the suprapatellar pouch and remove inflamed abundant synovium from the patellofemoral, medial, and lateral compartment as well as the intercondylar area. The medial femoral condyle cartilage was then thoroughly inspected in flexion extension and mid flexion. Chondromalacia was documented with the probe and arthroscopic photos. Some loose cartilage flap edges near the intercondylar notch were lightly debrided with the mechanical shaver, other areas more distally and posteriorly were probed, but did not exhibit significant displacement. There was a small area about 5 x 7 mm of loose cartilage moderate thickness that was resected down to a more bed to prevent additional loose body formation. Under direct arthroscopic visualization an 18-gauge needle was passed into the knee from superolateral into the suprapatellar pouch. The knee was copiously irrigated with arthroscopic fluid until there was a clear effluent before being drained of all fluid. The anteromedial and anterolateral portals were closed in 3-0 Monocryl in a buried interrupted fashion. 20 cc of 0.25% bupivacaine with epinephrine containing 4 mg of morphine was infiltrated into the knee through the previously placed needle. Mastisol, Steri-Strips, and 4 x 4 gauze were ap plied over the incisions followed by sterile soft roll. The knee was then wrapped gently with an NAM comressive bandage. The patient awoke from anesthesia without complication and was transferred to the recovery room in a stable condition.
[2023-05-27] MEDS: Lactated Ringers 1,000 ML 30 ML IV (11:52)
--- NOTE | 2023-05-27 12:03 | ANES.PREOP_ITS ---
General Info Date of Service Date Performed: 05/27/23 Height: 5 ft 4 in Weight: 112.8 kg Body Mass Index (BMI): 42.7 Surgical Procedure: Operation Date: 05/27/23 13:10 Proposed Procedure Side Surgeon p Knee Arthroscopy w/ any indicated meniscal, chondral and synovial surgery Left Ravinder Jane MD Meds Allergies and Home Medications Allergies Allergy/AdvReac Type Severity Reaction Status Date / Time horse radish Allergy Severe Anaphylaxis Uncoded 05/27/23 11:39 blue cheese Allergy Intermediate Anaphylaxis Uncoded 05/27/23 11:39 Home Medication Medication Instructions Recorded epinephrine 0.3 mg/0.3 mL 0.3 mg (0.3 mL) IM ONCE #2 ea 11/12/18 injection, auto-injector acetaminophen 500 mg oral powder 500 mg PO TID pain #90 tab-caps 05/04/23 packet (Tylenol Extra Strength) venlafaxine 75 mg capsule,extended 75 mg PO QAM #30 caps 05/19/23 release 24 hr prochlorperazine maleate 5 mg See Rx Instructions PO TID PRN 05/27/23 tablet (Compazine) headaches and/or nausea Current Visit Medications: Current Medications Generic Name Dose Route Start Last Admin Trade Name Freq PRN Reason Stop Dose Admin Cefazolin Sodium 3,000 mg/ 100 mls @ 200 mls/hr 05/27/23 06:00 Sodium Chloride IVPB 05/27/23 16:00 PREOP ALEX Ringer's Solution 1,000 mls @ 30 mls/hr 05/27/23 06:00 05/27/23 11:52 IV 06/25/23 23:59 30 mls/hr INFUSION ALEX Administration IV Miscellaneous Supplies 1 each 05/27/23 06:00 Iv Access IV 06/25/23 23:59 DIRECTED ALEX Oxycodone HCl 0 mg 05/27/23 11:45 Oxycodone 5 Mg Tab PO 06/26/23 11:44 Q3H PRN PRN Pain Sodium Chloride 0 ml 05/27/23 06:00 Normal Saline Flush 10 Ml Syr IV 06/25/23 23:59 PRN PRN Sodium Chloride 0 ml 05/27/23 06:00 Normal Saline 10 Ml Vial IJ 06/25/23 23:59 DIRECTED PRN Sterile Water 0 ml 05/27/23 06:00 Water,Injection,Sterile 10 Ml Vial IJ 06/25/23 23:59 DIRECTED PRN PFSH Active Problems Active Problems: Problem Status Onset Code Migraine G43.909 Nocturnal headaches R51.9 Irritant contact dermatitis due to other agents L24.89 Umbilical hernia K42.9 Anxiety F41.9 Plantar warts B07.0 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 Treated with Molnupiravir. Cubital tunnel syndrome History of tobacco use Quit in 2011 Incomplete tear of right rotator cuff Repaired in 2016 Surgical History Surgical History (Updated 05/27/23 @ 11:39 by Mirna Be, RN) H/O wisdom tooth extraction Hx of repair of rotator cuff Hx of tonsillectomy Tobacco Smoking/Tobacco Use Status: Former Tobacco Use Passive smoking exposure: No Second hand exposure: Yes Alcohol Alcohol Intake: current Alcohol intake frequency: holidays/special occasions only Alcohol type: beer and hard liquor Substance Use Substance use: Never Substance use type: does not use Prental History History 2 Para 2 Hx # Term Pregnancies Multiple births Hx # Pregnancies Ectopic pregnancies AB induced Hx Number of Living Children AB spontaneous Past Pregnancies Del. Date GA/Weeks # Preg Succ Route Wgt Sex Labor Lgth Anesth esia Location [facility] 06/20/07 40 No vaginal 3770.487 g Male 38 11/08/09 40 No vaginal 3997.283 g Female Delivery Date: 06/20/07 Last Updated by: Mariangel Garza baby broke away from placenta. Pt induced Delivery Date: 11/08/09 Last Updated by: Mariangel Garza baby stuck in canal Vital Signs and Lab Results Vital Signs Most Recent Vital Signs in EMR: Most Recent Vital Signs Temp Pulse Resp BP Pulse Ox 37.2 C 99 H 17 124/72 98 05/27/23 11:31 05/27/23 11:31 05/27/23 11:31 05/27/23 11:31 05/27/23 11:31 Lab Results Blood Type / Crossmatch: No Data to Display Complete Blood Count: No Data to Display Complete Metabolic Panel: No Data to Display Liver Function Panel: No Data to Display Coagulation Panel: No Data to Display Cardiac Panel: No Data to Display Arterial Blood Gas: No Data to Display Venous Blood Gas: No Data to Display Pancreas Panel: No Data to Display Thyroid Panel: No Data to Display Infectious Disease: No Data to Display Blood Cultures: No Data to Display Toxicology Panel: No Data to Display Panel: No Data to Display Anesthesia Assessment and Plan Anesthesia History Personal History: PONV Family History: No Family History of Anesthesia Complications Exercise Tolerance Exercise Tolerance: Metabolic Equivalents>4 Pertinent Negatives Pertinent Negatives: No Symptoms of GERD Cardiac & Pulmonary Exam Cardiac Exam: Normal S1/S2 Heart Sounds Pulmonary Exam: Clear Bilateral Breath Sounds Implantable Cardiac Device Does patient have a Pacemaker or an ICD?: No Airway Exam Known Difficult Airway: No Mallampati Class: 2 Mouth Opening: Normal (> 3cm) Thyromental Distance: Greater than 3 cm Neck Range of Motion: Full ROM Neck Circumference: Normal Teeth Condition: Normal Dentition ASA Classification ASA Score: ASA 2 Emergency Case?: No NPO Status NPO Status: NPO Clears >2 hours, Solids >8 hours Status Status: Not Relevant due to Medical History Anesthesia Plan Resuscitation Status: Full Code Anesthesia Technique: General Anesthesia Airway Planned: Endotracheal Tube Monitors Used: Standard Monitors
[2023-05-27] MEDS: ceFAZolin 3,000 MG in Normal Saline 100 ML 200 MG IVPB (12:47)
[2023-05-27] MEDS: Bupivacaine 0.25% Pres-Free 30 ML VIAL (13:37)
[2023-05-27] MEDS: MORPHine 4 MG/ML SYR (13:41)
--- NOTE | 2023-05-27 14:19 | W.ANESPOSTOP ---
Postoperative Evaluation Date, Time and Location Date Performed: 05/27/23 Time Performed: 14:20 Patient Location: PACU Vital Signs Most Recent Imported Vital Signs: Most Recent Vital Signs Temp Pulse Resp BP Pulse Ox 37.2 C 99 H 17 124/72 98 05/27/23 11:31 05/27/23 11:31 05/27/23 11:31 05/27/23 11:31 05/27/23 11:31 Pain Score Most Recent Pain Score: Most Recent Pain Score Pain Level 0 05/27/23 11:31 Assessment Mental Status: Awake (Alert & Oriented to Patient Baseline) Airway and Respiratory Function: Patent airway with normal (patient baseline) respiratory exam Cardiovascular Function: Hemodynamically Stable Hydration Status: Adequately Hydrated Nausea & Vomiting: No Nausea or Vomiting Pain: Pt. Denies Any Pain Peripheral Nerve Block: Patient did not receive a nerve block
[2023-05-27] MEDS: traMADol 50 MG TAB PO (14:45)
== END 2023-05-27 15:25 | disposition home or self-care (01) ==
PROVIDERS: PCP Nurse Practitioner Family; Visit Provider Student in an Organized Health Care Education/Training Program
PROC: (CPT 29870; principal; 2023-05-27 13:00)
DX: M94.262 Chondromalacia, left knee (principal); M23.42 Loose body in knee, left knee; M65.862 Other synovitis and tenosynovitis, left lower leg
CPT/HCPCS: 29876; 81025; J0690; J1100; J1885; J2250; J2270; J2405; J2704; J3010

== ENCOUNTER 2023-07-28 17:21 | Outpatient (REF) | payer OTHER, SELFPAY ==
--- NOTE | 2023-07-28 14:50 | PAPFT_PTH ---
PATIENT: Yudy Matos LOC: [facility] U#:[id number] AGE/SX: 32/F ROOM: RE07/28/[address]: Buffy Mtz MD : [id number] BED: DIS: 07/28/2023 SPEC #: [id number] RECD: 07/28/23 17:48 STATUS: KACI REKayden #: [id number] CORDELL: 07/28/23 14:[address]: Buffy Mtz DEPT: [facility] Cytology RECD BY: Karie Elder ENTERED: 07/28/23 17:48 SP TYPE: PAPFT DANIEL DR: Nahid Potter, DOMI Tissues: 1 - CX/ENDOCX FOR PAP SMEARS Procedures: PAP THIN PREP/[facility] Screening HPV DNA PROBE Comments: [id number]
== END 2023-07-28 17:22 | disposition home or self-care (01) ==
LOC: LBN 17:21
PROVIDERS: PCP Nurse Practitioner Family; Visit Provider Obstetrics & Gynecology
DX: Z12.4 Encounter for screening for malignant neoplasm of cervix (principal); Z11.51 Encounter for screening for human papillomavirus (HPV)
CPT/HCPCS: 88142; 87624

== ENCOUNTER 2023-08-18 12:18 | Emergency (ER) | payer OTHER, SELFPAY ==
[2023-08-18 12:28] VITALS: BP 126/70; PULSE 100; RESP 22; TEMP 37.1; O2SAT 99
--- NOTE | 2023-08-18 13:25 | DI.RAD_ITS ---
Exam(s) XR CHEST 2V PA LATERAL EXAM: XR CHEST 2V PA LATERAL CLINICAL HISTORY: cough, pleuritic chest discomfort. TECHNIQUE: 2D digital imaging was performed. COMPARISON: CR XR PORTABLE CHEST AP from 10/14/2022 FINDINGS: 2 views: Heart size is normal. The mediastinum is not widened. Lungs are clear. No infiltrates nor pleural effusions. IMPRESSION: No acute pulmonary findings. DATA REPOSITORY: RADIATION DOSE DELIVERED:
[2023-08-18] MEDS: Dexamethasone 10 MG/ML VIAL PO (13:49)
== END 2023-08-18 14:07 | disposition home or self-care (01) ==
PROVIDERS: Emergency Provider Emergency Medicine; PCP Nurse Practitioner Family
DX: R05.9 Cough, unspecified (principal)
CPT/HCPCS: 71046; J1100

== ENCOUNTER 2023-12-29 10:41 | Emergency (ER) | payer OTHER, SELFPAY ==
[2023-12-29 10:44] VITALS: BP 118/78; PULSE 114; RESP 18; TEMP 37; O2SAT 100
--- NOTE | 2023-12-29 10:57 | DI.US_ITS ---
Exam(s) US ABDOMEN LIMITED EXAM: US ABDOMEN LIMITED CLINICAL HISTORY: eval GB for cholecystitis TECHNIQUE: Ultrasound abdomen performed using standard protocol. COMPARISON: US US ABDOMEN from 06/19/2019 FINDINGS: LIVER: Normal size. Normalechogenicity. No focal liver lesions are seen.. GALLBLADDER: No evidence of cholelithiasis. No evidence of wall thickening. No pericholecystic fluid identified. SANCHEZ'S SIGN: Negative. BILIARY SYSTEM: No intrahepatic or extrahepatic biliary ductal dilation. RIGHT KIDNEY: Normal size. No evidence of renal calculi. No evidence of hydronephrosis. No suspicious renal mass. No cyst identified. PANCREAS: Normal where visualized. ABDOMINAL AORTA AND IVC: Visualized portions normal caliber. ASCITES: None seen. IMPRESSION: Normal sonographic appearance of the right upper quadrant. DATA REPOSITORY:
--- NOTE | 2023-12-29 11:03 | ED.GENADUL_ITS ---
Discharge Plan Disposition Patient Disposition: Home Condition: Good Discharge Details Clinical Impression: Abdominal pain, RUQ Primary Care Provider: Nahid Potter ED Provider: Luis Torres Home Meds and New Rx's Prescriptions: New pantoprazole [Protonix] 40 mg tablet,delayed release (DR/EC) 40 mg PO DAILY Qty: 30 0RF ondansetron 4 mg tablet,disintegrating 4 mg PO Q8H Qty: 20 0RF No Action albuterol sulfate 90 mcg/actuation HFA aerosol inhaler 2 inh inhalation Q6H PRN (Reason: shortness of breath or wheezing) Qty: 18 0RF phentermine 30 mg capsule 30 mg PO DAILY Qty: 30 2RF Rx Instructions: must administer 2 hours after breakfast epinephrine 0.3 mg/0.3 mL auto-injector 0.3 mg IM ONCE Qty: 2 0RF Discharge Instructions Instructions: Abdominal Pain (ED) Additional Instructions: At this time your laboratory workup has returned unremarkable, your pancreas numbers, and liver function is stable. You have a slightly elevated bilirubin, but it does not appear to be reflective of a gallbladder obstruction. Please continue to take Tylenol as needed for pain. Please take the Protonix as directed. Please take the Zofran as needed for nausea. Please follow-up closely with your surgeon at your scheduled appointment. As we discussed together, please avoid any fatty foods, greasy foods, dairy products, or red meat over the next 2 weeks. Stick with easy foods like crackers, rice, bananas, or liquid foods like p.o. or Jell-O. If you notice any worsening of your symptoms, or any new symptoms such as vomiting, diarrhea, fever, chills, shortness of breath, chest pain, numbness, weakness, or fainting , please return immediately to the emergency department for reevaluation. Please follow up with your primary care provider as soon as possible for reassessment and reevaluation. As always, it was a pleasure participating in your medical care today. Referrals: Nahid Potter, UNDER[employer]EMAN [Primary Care Provider] - Ed Santos MD [ [facility] STAFF PHYSICIAN] - Discharge Data Discharge Date/Time-TO BE ENTERED AT DEPARTURE: 12/29/23 14:17 HPI General Date/Time Provider Initiated Documentation: 12/29/23 10:46 . HPI Narrative: 33-year-old female with a past medical history of asthma, presents today for evaluation of right epigastric pain. Patient states that his about 5 days ago she developed right upper quadrant pain after eating dinner. It is sharp and achy in nature, radiates to her right back. She has had nausea and 1 episode of vomiting that occurred this morning. Whenever she eats something it makes her pain significantly worse. She had a small amount of blood noted in her vomitus today. She admits to loose stools over the last couple of days as well. She denies any fever but does admit to feeling hot at home. She denies previous abdominal surgeries. Pain is constant, but will come and go in severity secondary to eating. No other complaints at this time. No other modifying factors. She has not taken any excessive Tylenol or Motrin over the last few days either. Related Data Home Medications Medication Instructions Recorded Confirmed epinephrine 0.3 mg/0.3 mL 0.3 mg (0.3 mL) IM ONCE #2 ea 11/12/18 12/29/23 injection, auto-injector albuterol sulfate 90 mcg/actuation 2 inh inhalation Q6H PRN shortness 08/23/23 12/29/23 aerosol inhaler of breath or wheezing #18 grams phentermine 30 mg capsule 30 mg PO DAILY #30 caps 10/06/23 12/29/23 ondansetron 4 mg disintegrating 4 mg PO Q8H #20 tabs 12/29/23 tablet pantoprazole 40 mg tablet,delayed 40 mg PO DAILY #30 tabs 12/29/23 release (Protonix) Previous Rx's Medication Instructions Recorded epinephrine 0.3 mg/0.3 mL 0.3 mg (0.3 mL) IM ONCE #2 ea 11/12/18 injection, auto-injector albuterol sulfate 90 mcg/actuation 2 inh inhalation Q6H PRN shortness 08/23/23 aerosol inhaler of breath or wheezing #18 grams phentermine 30 mg capsule 30 mg PO DAILY #30 caps 10/06/23 ondansetron 4 mg disintegrating 4 mg PO Q8H #20 tabs 12/29/23 tablet pantoprazole 40 mg tablet,delayed 40 mg PO DAILY #30 tabs 12/29/23 release (Protonix) Allergies Allergy/AdvReac Type Severity Reaction Status Date / Time venlafaxine AdvReac Intermediate tachycardia Verified 12/29/23 12:00 horse radish Allergy Severe Anaphylaxis Uncoded 12/29/23 12:00 blue cheese Allergy Intermediate Anaphylaxis Uncoded 12/29/23 12:00 General Stated Complaint: Abd Prob RAN: 3 Review of Systems All systems reviewed & are unremarkable except as noted in HPI and below Exam Narrative Exam Narrative: 1.Const: Well-nourished, Well-developed, appearing stated age 2.Eyes: PERRL, no conjunctival injection, and symmetrical lids. 3.ENT: Atraumatic external nose and ears. Moist MM. Neck: Symmetric, trachea midline, No thyromegaly. 4.CVS: +S1/S2, No murmurs or gallops. Peripheral pulses 2+ and equal in all extremities. Brisk capillary refill in all extremities. 5.RESP: Unlabored respiratory effort. Clear to auscultation bilaterally. No wheezes rales or rhonchi 6.GI: Soft, nondistended, no guarding or rebound. Mild achiness and tenderness in the right upper quadrant on palpation, however I cannot elicit a Dahl sign. No pain to McBurney's point. No CVA tenderness. 7.MSK: Normocephalic/Atraumatic, Extremities w/o deformity or ttp No cyanosis or clubbing, Normal movement of all extremities 8.Skin: Warm, Dry. No rashes or lesions. 9.Neuro: veneer manufacturer II-XII grossly intact. Sensation grossly intact, no focal neurologic deficits. 10.Psych: (AAO) x3. Appropriate mood and affect Course Vital Signs Vital signs: Vital Signs Temperature 37.0 C 12/29/23 10:44 Pulse 114 H 12/29/23 10:44 Respiratory Rate 18 12/29/23 10:44 Blood Pressure 118/78 12/29/23 10:44 Pulse Oximetry 100 12/29/23 10:44 Temperature 37.0 C 12/29/23 10:44 Temperature Source Temporal Artery Scan 12/29/23 10:44 Pulse 114 H 12/29/23 10:44 Respiratory Rate 18 12/29/23 10:44 Blood Pressure 118/78 12/29/23 10:44 Blood Pressure Position Sitting 12/29/23 10:44 Pulse Oximetry 100 12/29/23 10:44 Oxygen Delivery Method Room Air 12/29/23 10:44 Oxygen Flow Rate 0 12/29/23 10:44 Medical Decision Making 33-year-old female with a past medical history of asthma, presents today for evaluation of right epigastric pain. Patient states that his about 5 days ago she developed right upper quadrant pain after eating dinner. It is sharp and achy in nature, radiates to her right back. She has had nausea and 1 episode of vomiting that occurred this morning. Whenever she eats something it makes her pain significantly worse. She had a small amount of blood noted in her vomitus today. She admits to loose stools over the last couple of days as well. She denies any fever but does admit to feeling hot at home. She denies previous abdominal surgeries. Pain is constant, but will come and go in severity secondary to eating. No other complaints at this time. No other modifying factors. She has not taken any excessive Tylenol or Motrin over the last few days either. Exam demonstrates well-appearing female, no guarding or rebound, mild achiness and tenderness in the right upper quadrant, worse with deep inspiration, but not a positive Dahl sign. No pain at McBurney's point. Differential is highest for cholecystitis or biliary colic. Less likely pancreatitis. Potential gastric irritation or ulcer of concern as well with vomiting and small streaking of blood. Will give GI cocktail, Toradol and Ofirmev, get an ultrasound, monitor closely and reassess. 3 PM Ultrasound was ordered and shows no acute process, no evidence of cholecystitis. Decision was made to get CT scan. Laboratory workup has returned, no white count bandemia or left shift. Electrolytes normal. Renal function normal, lipase normal, patient does have trace leuk esterase, 5-10 WBCs but no nitrites. Notable epithelials. She has no dysuria urinary frequency or other urinary complaints whatsoever. CT scan shows no thickening of the bladder wall. Symptoms appear clinically inconsistent with UTI. Pending cultures. Will hold off on antibacterial treatment as her symptoms appear clinically inconsistent with notable UTI. On reassessment pain is mildly improved. 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 Patient otherwise looks clinically well. Repeat exam continues to show no signs of an acute surgical abdomen. Patient does have scheduled follow-up with Dr. Santos on an outpatient basis for further discussion of her fatty containing umbilical hernia, will recommend further discussion with him about potential further gallbladder evaluation including outpatient nonemergent HIDA scan. Recommend dietary changes with avoidance of fatty greasy products or dairy products. Discussed red flags which to return. Did offer small amount of narcotic pain pills for home use, patient has declined. I have extensively reviewed the treatment plan and discharge instructions with the patient and their family. I have addressed all patient concerns at this time. The patient and family was made aware of what symptoms to monitor for that would warrant a return to the emergency department. Discussed the plan with the patient and family, they demonstrate verbal understanding and agreement with our assessment and plan at this time. The documentation in this chart was dictated using [employer] dictation software. Please excuse any dictation errors. FINDINGS: LIVER: Normal size. Normalechogenicity. No focal liver lesions are seen.. GALLBLADDER: No evidence of cholelithiasis. No evidence of wall thickening. No pericholecystic fluid identified. DAHL'S SIGN: Negative. BILIARY SYSTEM: No intrahepatic or extrahepatic biliary ductal dilation. RIGHT KIDNEY: Normal size. No evidence of renal calculi. No evidence of hydronephrosis. No suspicious renal mass. No cyst identified. PANCREAS: Normal where visualized. ABDOMINAL AORTA AND IVC: Visualized portions normal caliber. ASCITES: None seen. IMPRESSION: Normal sonographic appearance of the right upper quadrant. FINDINGS: ABDOMEN and PELVIS: Lung Bases: No acute findings. Liver: Normal density. No measurable mass. Gallbladder and biliary tract: No radiodense calculus or biliary dilation. Pancreas: Normal density. No abnormal calcifications or inflammatory process. No evidence of mass. Spleen: Normal. Kidneys: Normal size, contour and axis. No radiodense stones. No obstructive uropathy. No suspicious masses seen. Adrenal glands: No masses seen. Vasculature: Abdominal aorta non-dilated. Soft tissues: Fatty containing umbilical hernia measuring 4.8 cm in greatest dimension.. Bladder: No gross wall thickening. No calculi.No focal mass. Bowel: No obstruction. No bowel wall thickening. Appendix normal.: Nearly empty. Peritoneal cavity: No ascites. No focal collection or mesenteric inflammatory response. Bones: Unremarkable for age. Reproductive organs: Within normal limits. Lymph nodes: Unremarkable. IMPRESSION:: Fatty containing umbilical hernia. No acute abnormality. Quality:SDOH Health Related Social Needs: No Data to Display [facility] All Active Problems (Updated 12/29/23 @ 14:03 by Luis Torres DO) Abdominal pain, RUQ (Acute) Pneumonia (Acute) Migraine (Acute) Nocturnal headaches (Acute) Umbilical hernia (Acute) Anxiety (Chronic) Plantar warts (Acute) Chondromalacia, left knee (Acute) Medical History Asthma Internal derangement of left knee Amplified musculoskeletal pain Post-acute sequelae of COVID-19 ([facility]) Incomplete tear of right rotator cuff Repaired in 2017 History of tobacco use Quit in 2011 Irritant contact dermatitis due to other agents Allergic reaction Blue cheese, horse raddish COVID (~07/2021) again + on 04/27/22. Treated with Molnupiravir. Cubital tunnel syndrome Surgical History Hx of repair of rotator cuff H/O wisdom tooth extraction Hx of tonsillectomy Family History Mother No problems noted. Father No problems noted. Brother No problems noted. Son No problems noted. Maternal Grandfather , 67 No problems noted. Daughter No problems noted. Paternal Grandfather , 83 No problems noted. Maternal Grandmother No problems noted. Paternal Grandmother , 79 No problems noted. 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 [employer] Pets and animals: Yes Pets and animals: cat(s), dog(s) and bird(s) Sexually active: Yes Do you think of yourself as: straight/heterosexual Current gender identity: female What is your relationship status?: How often do you talk on the phone with friends or family?: three or more times per week How often do you get together with friends or relatives?: once per week How often do you attend roman catholic or nondenominational services?: decline to answer Do you belong to any clubs or organized social groups?: no Panel score (0-1 are the most socially isolated patients): 2 What type of physical activity do you participate in: walking Duration: > 90 minutes/day Frequency: daily Sylvia/Mormon: No preference Seatbelt use: always Helmet use: Yes Helmet use: always Drive intox or ride w/intox delivery driver assistant: No Do you feel safe at home: Yes Do you feel safe in your relationship?: Yes Female Reproductive History Menstrual Age of Menarche: 8 Duration of menses: 3-5 days control method: permanent sterilization ( got vasectomy - December 2021) History History 2 Para 2 Hx # Term Pregnancies Multiple births Hx # Pregnancies Ectopic pregnancies AB induced Hx Number of Living Children AB spontaneous Past Pregnancies Del. Date GA/Weeks # Preg Succ Route Wgt Sex Labor Lgth Anesth esia Location [facility] 06/20/07 40 No vaginal 3770.487 g Male 38 11/08/09 40 No vaginal 3997.283 g Female Delivery Date: 06/20/07 Last Updated by: Mariangel Garza baby broke away from placenta. Pt induced Delivery Date: 11/08/09 Last Updated by: Mariangel Garza baby stuck in canal
[2023-12-29 11:12] LABS: Abs Immature Grans 0.03 10^3/uL (0.0-0.06); Absolute Basophil Count 0.02 10^3/uL (0.0-0.2); Absolute Eosinophil Count 0.06 10^3/uL (0.0-0.7); Absolute Lymphocyte Count 2.43 10^3/uL (1.2-3.4); Absolute Monocyte Count 0.52 10^3/uL (0.1-0.8); Absolute Neutrophil Count 5.08 10^3/uL (1.2-6.7); Basophils % 0.2; Eosinophils % 0.7; HCT 42.4 % (36.0-46.0); HGB 14.1 g/dL (11.2-15.7); Immature Grans % 0.4; Lymphocytes % 29.9; MCH 30.8 pg (27.0-33.0); MCHC 33.3 % (32.0-36.0); MCV 93 fL (80-95); MPV 10.3 fL (8.0-11.0); Monocytes % 6.4; Neutrophils % 62.4; Platelet Count 291 10^3/uL (130-400); RBC 4.58 10^6/uL (3.93-5.22); RDW 11.9 % (11.7-14.6); RDW-SD 40.6 fL; WBC 8.14 10^3/uL (4.4-10.8)
[2023-12-29] MEDS: Pantoprazole 40 MG VIAL IVP (11:18)
[2023-12-29] MEDS: Ketorolac 15 MG/ML VIAL IVP (11:19)
[2023-12-29 11:28] LABS: ALT 29 U/L (14-59); AST 21 U/L (15-37); Albumin 3.9 g/dL (3.4-5.0); Alkaline Phosphatase 57 U/L (46-116); BUN 10 mg/dL (7-18); Bilirubin, Direct 0.2 mg/dL (0.0-0.2); Bilirubin, Total 1.5 mg/dL (0.2-1.0); Calcium 8.8 mg/dL (8.5-10.1); Chloride 104 mmol/L (98-107); Estimated GFR 75.34 (mL/min/1.73m2); Glucose 89 mg/dL (74-106); Lipase 44 U/L (16-77); Potassium 3.7 mmol/L (3.5-5.1); Sodium 140 mmol/L (136-145); Total Protein 7.4 g/dL (6.4-8.2)
[2023-12-29] MEDS: ACETAMINOPHEN 1,000 MG/100 ML BTL 400 MG IVPB (11:48)
[2023-12-29] MEDS: Lactated Ringers 1,000 ML 1000 ML IV (11:48)
[2023-12-29 11:50] VITALS: BP 118/78; PULSE 114; RESP 18; TEMP 37; O2SAT 100
[2023-12-29 12:00] LABS: Bilirubin Negative (Negative); Blood Negative (Negative); Clarity Clear (Clear); Glucose Negative (Negative); Ketones 15 mg/dL (Negative); Leukocyte Esterase Trace (Negative); Nitrite Negative (Negative); Urobilinogen 0.2 mg/dL (Up to 0.2); pH 5.5 (5-8)
[2023-12-29 12:26] LABS: Bacteria Few HPF (Negative); Crystals Negative HPF (Negative); Epithelial Cells Moderate HPF (Negative); Mucus Negative (Negative); Other Cells Negative (Negative); RBC Negative HPF (0-2)
[2023-12-29 12:27] LABS: C & S Indicated? No/Sq. Contamination; Casts Negative LPF (Negative)
[2023-12-29] MEDS: Normal Saline Flush 10 ML SYR IJ (13:00)
[2023-12-29] MEDS: Omnipaque 350 MG/ML 500 ML BTL-Imaging package 100 ML IJ (13:06)
--- NOTE | 2023-12-29 13:10 | DI.CT_ITS ---
Exam(s) CT ABDOMEN PELVIS W EXAM: CT ABDOMEN PELVIS W CLINICAL HISTORY: ruq pain, eval for mass or abnormality. TECHNIQUE: Imaging Protocol: Axial computed tomography images with coronal and sagittal reformatted images were created and reviewed CONTRAST MATERIAL: Intravenous: Omnipaque 350 Contrast volume:100 ml Oral: / no COMPARISON: US US ABDOMEN LIMITED from 12/29/2023 FINDINGS: ABDOMEN and PELVIS: Lung Bases: No acute findings. Liver: Normal density. No measurable mass. Gallbladder and biliary tract: No radiodense calculus or biliary dilation. Pancreas: Normal density. No abnormal calcifications or inflammatory process. No evidence of mass. Spleen: Normal. Kidneys: Normal size, contour and axis. No radiodense stones. No obstructive uropathy. No suspicious masses seen. Adrenal glands: No masses seen. Vasculature: Abdominal aorta non-dilated. Soft tissues: Fatty containing umbilical hernia measuring 4.8 cm in greatest dimension.. Bladder: No gross wall thickening. No calculi.No focal mass. Bowel: No obstruction. No bowel wall thickening. Appendix normal.: Nearly empty. Peritoneal cavity: No ascites. No focal collection or mesenteric inflammatory response. Bones: Unremarkable for age. Reproductive organs: Within normal limits. Lymph nodes: Unremarkable. IMPRESSION:: Fatty containing umbilical hernia. No acute abnormality. RADIATION DOSE DELIVERED: 1,308.12mGy.cm Total DLP DATA REPOSITORY: All CT scans at this facility are submitted to the National Radiology Data Registry (NRDR) Dose Index Registry (DIR) with the [employer] (ACR). RADIATION OPTIMIZATION: All CT scans at this facility use at least one of these dose optimization te chniques: automated exposure control; mA and/or kV adjustment per patient size (includes targeted exa ms where dose is matched to clinical indication); or iterative reconstruction.
[2023-12-29 13:27] VITALS: BP 124/78; PULSE 85; O2SAT 98
== END 2023-12-29 14:17 | disposition home or self-care (01) ==
PROVIDERS: Emergency Provider Student in an Organized Health Care Education/Training Program; PCP Nurse Practitioner Family
DX: R11.2 Nausea with vomiting, unspecified; R10.11 Right upper quadrant pain; R10.13 Epigastric pain; J45.909 Unspecified asthma, uncomplicated; Z79.899 Other long term (current) drug therapy
CPT/HCPCS: 36415; 80053; 81025; 83690; 96365; 96375; 99285; 74177; 76705; 81003; 81015; 82248; 85025; 99284; J0131; J1885; J2470

== ENCOUNTER 2024-02-09 08:52 | Day surgery (SDC) | payer OTHER, SELFPAY ==
--- NOTE | 2024-02-08 16:42 | PDOC.DSDIS_ITS ---
Date of service: 02/09/24 Time of Service: 12:54 Discharge Plan Disposition Patient Disposition: Home Condition: Good Discharge Details Reason For Visit: Laparoscopic cholecystectomy Attending Provider: Ed Santos Primary Care Provider: Nahid Potter Home Meds and New Rx's Prescriptions: New tramadol 100 mg tablet 100 mg PO TID PRNQty: 12 0RF Rx Instructions: Take 1 tablet by mouth up to every 8 hours if needed for severe pain. Continued albuterol sulfate 90 mcg/actuation HFA aerosol inhaler 2 inh inhalation Q6H PRN (Reason: shortness of breath or wheezing) Qty: 18 0RF phentermine 30 mg capsule 30 mg PO DAILY Qty: 30 2RF Rx Instructions: must administer 2 hours after breakfast epinephrine 0.3 mg/0.3 mL auto-injector 0.3 mg IM ONCE Qty: 2 0RF ondansetron 4 mg tablet,disintegrating 4 mg PO Q8H Qty: 20 0RF Discharge Instructions Instructions: Laparoscopic Cholecystectomy (DC) Additional Instructions: Yudy, we are able to complete your procedure today without any difficulty. We removed your gallbladder just like we talked about beforehand. Everything went very smoothly, and hopefully this will provide relief of some of your symptoms. Similarly, like we discussed before surgery, I was able to reduce the down the bellybutton hernia making sure that all of the abdominal contents were back in the normal position, then so the hole closed. Expect to have some pain after surgery. You should be up and moving around a little bit more more each day. You may also experience some bruising, especially around the bellybutton site since we had to close the hernia, so do not be surprised if you notice that. I look forward to seeing you in the office in follow-up. Please be sure to bring any paperwork that you need from work if you have not already supplied that to the office. If you need anything else in the meantime, please do not hesitate to call or ask at any point 1. Resume all of your regular medications. 2. Alternate heating pads and ice packs over the incisions if needed for pain. I typically recommend 15-minute intervals 3. Alternate [id number] Tylenol and ibuprofen every 6 hours for the first 2 days. Then use as needed. Use the prescription for tramadol if needed for more severe pain 4. Leave bandage in place for 24 hours, then remove. 5. Shower with warm soapy water. Pat dry. Use a bandaid if needed to protect your clothing. 6. No soaking or tub baths until I see you in the office. 7. No heavy lifting until I see you in the office. 8. Call the office (or go directly to the emergency room after hours) if you notice any of the following: Develop chills (warm to touch), or if you have a thermometer and your temperature is above 101 Difficulty breathing or difficultly swallowing Persistent vomiting Any bleeding ? exceeding one tablespoon 9. Call your physician if the site where your intravenous was started becomes re d, swollen, painful, and warm to touch. Activity:: No heavy lifting Remove Dressings/Wound Care:: 24 hours Shower/Bathe:: 24 hours Diet:: As Tolerated Discharge Orders Discharge Orders: Discharge Order (Routine); Ordered 02/08/24 Ordered By: Ed Santos DS: Diagnosis Discharge Diagnosis (1) Biliary dyskinesia: Status: Acute Asessment and Plan: Postoperative outpatient follow-up
--- NOTE | 2024-02-08 16:44 | ROE_ITS ---
Date of service: 02/09/24 Time of Service: 12:58 Operative Note Operative Note DATE OF PROCEDURE: 02/09/24 PRE-OP DIAGNOSIS: Symptomatic biliary dyskinesia with umbilical hernia POST-OP DIAGNOSIS: same PROCEDURE: Laparoscopic cholecystectomy primary closure of umbilical hernia SURGEON: Ed Santos GAS TURBINE POWERPLANT MECHANIC: Patricia Kay ANESTHESIA TYPE: General LMA/ETT Refer to Anesthesia Record ESTIMATED BLOOD LOSS: 25 PATHOLOGY: other (Gallbladder) COMPLICATIONS: None Patient was transported to: PACU Patient's condition: stable Indications: Yudy is a 33-year-old woman with symptomatic biliary dyskinesia, as well as an umbilical hernia. Procedure Description: After satisfactory induction of general anesthesia, I prepped and draped the abdomen in usual fashion. Next, I began with a periumbilical incision. I dissected down to the fascia and elevated it with Bradly clamps. There is a umbilical hernia defect that is approximately 1 x 2 cm. It feels like it is mostly fat-containing. I dissected away from the surrounding subcutaneous soft tissues and reduced majority of this back into the peritoneal cavity. Next, I opened the upper portion of the hernia sac, and advanced a 5 mm port under direct vision into the peritoneum. This was confirmed with the laparoscope. The peritoneal cavity was then insufflated, and with the assistance of the laparoscope, I placed another 5 mm port in the right upper abdomen. Next, I placed a 5 mm port in the mid epigastrium. I then moved the camera into the mid epigastric port, and turned my attention back to the umbilicus. Using the LigaSure, I was able to dissect free the edges of the umbilical fascial defect and clear it of some adhered omentum. I then upsized the umbilical port to a 12 mm port move the camera back down to the umbilicus, and placed another 5 mm port in the right abdomen to proceed with cholecystectomy. I then placed the patient in some reverse Trendelenburg and left side down positioning. I then grasped the gallbladder fundus and elevated cephalad. With the assistance of indocyanine green visualization, I began by dissecting the gallbladder infundibulum. I worked in a lateral to medial fashion. Once I skeletonized the cystic duct and cystic artery, with a satisfactory critical view of safety, I doubly clipped and divided them. I then used electrocautery to dissect the gallbladder off the gallbladder fossa. I passed the gallbladder into an Endo Catch bag and removed it by way of the umbilical site. I examined the surgical field. It was hemostatic. Next, I moved the camera back up into the left upper abdominal port. Next, I used a Jamison Hargrove 2 port closure system and 0 V icryl sutures to reapproximate the umbilical fascia. The mid epigastric port was then removed under direct vision. It was hemostatic. Finally, I remove the camera in the right upper quadrant abdominal port after emptying the insufflated gas. The subcutaneous tissues were irrigated and closed with subcuticular stitches. Band-Aids were applied, the patient was awoken from anesthesia and transferred to the recovery unit.
[2024-02-09] VITALS (11 sets, daily range): BP systolic 82–132; BP diastolic 50–78; PULSE 55–81; RESP 10–18; TEMP 36.1–36.6; O2SAT 98–100; BMI 33.0
[2024-02-09] MEDS: Lactated Ringers 1,000 ML 80 ML IV (09:30)
[2024-02-09] MEDS: Indocyanine green 25 MG VIAL 5 MG IVP (09:32)
[2024-02-09] MEDS: Acetaminophen 500 MG TAB 1000 MG PO (09:33)
[2024-02-09] MEDS: Gabapentin 300 MG CAP 600 MG PO (09:35)
[2024-02-09] MEDS: Celecoxib 200 MG CAP PO (09:35)
--- NOTE | 2024-02-09 10:35 | ANES.PREOP_ITS ---
General Info Date of Service Date Performed: 02/09/24 Height: 5 ft 4 in Weight: 87.3 kg Body Mass Index (BMI): 33.0 Surgical Procedure: Operation Date: 02/09/24 10:10 Proposed Procedure Side Surgeon p Cholecystectomy Laparoscopic Ed Santos MD s Herniorrhaphy Umbilical Ed Santos MD Meds Allergies and Home Medications Allergies Allergy/AdvReac Type Severity Reaction Status Date / Time venlafaxine AdvReac Intermediate tachycardia Verified 02/09/24 09:10 blue cheese Allergy Intermediate Anaphylaxis Uncoded 02/09/24 09:10 Home Medication Medication Instructions Recorded epinephrine 0.3 mg/0.3 mL 0.3 mg (0.3 mL) IM ONCE #2 ea 11/12/18 injection, auto-injector albuterol sulfate 90 mcg/actuation 2 inh inhalation Q6H PRN shortness 08/23/23 aerosol inhaler of breath or wheezing #18 grams phentermine 30 mg capsule 30 mg PO DAILY #30 caps 10/06/23 ondansetron 4 mg disintegrating 4 mg PO Q8H #20 tabs 12/29/23 tablet Current Visit Medications: Current Medications Generic Name Dose Route Start Last Admin Trade Name Freq PRN Reason Stop Dose Admin Acetaminophen 1,000 mg 02/09/24 06:00 02/09/24 09:33 Acetaminophen 500 Mg Tab PO 02/09/24 23:59 1,000 mg PREOP ALEX Administration Celecoxib 200 mg 02/09/24 06:00 02/09/24 09:35 Celecoxib 200 Mg Cap PO 02/09/24 23:59 200 mg PREOP ALEX Administration Gabapentin 600 mg 02/09/24 06:00 02/09/24 09:35 Gabapentin 300 Mg Cap PO 02/09/24 23:59 600 mg PREOP ALEX Administration Hydromorphone HCl 0.2 mg 02/08/24 16:45 Hydromorphone 2 Mg/Ml Syr IVP 03/09/24 16:44 Q1H PRN PRN Ringer's Solution 1,000 mls @ 80 mls/hr 02/09/24 06:00 IV 02/09/24 23:59 INFUSION ALEX IV Miscellaneous Supplies 1 each 02/09/24 06:00 Iv Access IV 02/09/24 23:59 DIRECTED ALEX Indocyanine Green 5 mg 02/08/24 13:00 02/09/24 09:32 Indocyanine Green 25 Mg Vial IVP 03/09/24 12:59 5 mg DIRECTED ALEX Administration Sodium Chloride 0 ml 02/09/24 06:00 Normal Saline Flush 10 Ml Syr IV 02/09/24 23:59 PRN PRN Sodium Chloride 0 ml 02/09/24 06:00 Normal Saline 10 Ml Vial IJ 02/09/24 23:59 DIRECTED PRN Sterile Water 0 ml 02/09/24 06:00 Water,Injection,Sterile 10 Ml Vial IJ 02/09/24 23:59 DIRECTED PRN Tramadol HCl 50 mg 02/08/24 16:45 Tramadol 50 Mg Tab PO 03/09/24 16:44 Q6H PRN PRN Pain PFSH Active Problems Active Problems: Problem Status Onset Code Biliary dyskinesia K82.8 Pneumonia J18.9 Migraine G43.909 Nocturnal headaches R51.9 Umbilical hernia K42.9 Anxiety F41.9 Plantar warts B07.0 Chondromalacia, left knee M94.262 Medical History Medical History Asthma Internal derangement of left knee Amplified musculoskeletal pain Post-acute sequelae of COVID-19 (PASC) Incomplete tear of right rotator cuff Repaired in 2017 History of tobacco use Quit in 2011 Irritant contact dermatitis due to other agents Allergic reaction Blue cheese, horse raddish COVID (~07/2021) again + on 04/27/22. Treated with Molnupiravir. Cubital tunnel syndrome Surgical History Surgical History Hx of repair of rotator cuff H/O wisdom tooth extraction Hx of tonsillectomy Tobacco Smoking/Tobacco Use Status: Former Tobacco Use Passive smoking exposure: No Second hand exposure: Yes Alcohol Alcohol Intake: current Alcohol intake frequency: holidays/special occasions only Alcohol type: beer and hard liquor Substance Use Substance use: Rarely Substance use type: marijuana Prental History History 2 Para 2 Hx # Term Pregnancies Multiple births Hx # Pregnancies Ectopic pregnancies AB induced Hx Number of Living Children AB spontaneous Past Pregnancies Del. Date GA/Weeks # Preg Succ Route Wgt Sex Labor Lgth Anesth esia Location Prov Complic 06/20/07 40 No vaginal 3770.487 g Male 38 11/08/09 40 No vaginal 3997.283 g Female Delivery Date: 06/20/07 Last Updated by: Mariangel Garza baby broke away from placenta. Pt induced Delivery Date: 11/08/09 Last Updated by: Mariangel Garza baby stuck in canal Vital Signs and Lab Results Vital Signs Most Recent Vital Signs in EMR: Most Recent Vital Signs Temp Pulse Resp BP Pulse Ox 36.1 C L 80 16 132/78 100 02/09/24 09:12 02/09/24 09:12 02/09/24 09:12 02/09/24 09:12 02/09/24 09:12 Point of Care Results Point of Care Results: POC- Test(urine) Negative 02/09/24 09:58 Lab Results Blood Type / Crossmatch: No Data to Display Complete Blood Count: White Blood Count 9.0 10^3/uL (4.4-10.8) 01/17/24 09:47 Red Blood Count 4.53 10^6/uL 01/17/24 09:47 Hemoglobin 14.1 g/dL 01/17/24 09:47 Hematocrit 42.0 % 01/17/24 09:47 Platelet Count 277 10^3/uL 01/17/24 09:47 Complete Metabolic Panel: Sodium 137 (120-150) 01/17/24 09:47 Potassium 4.1 mmol/L (3.5-5.1) 01/17/24 09:47 Chloride 105 mmol/L 01/17/24 09:47 Carbon Dioxide 25 mmol/L 01/17/24 09:47 BUN 11 mg/dL (7-18) 01/17/24 09:47 Creatinine 0.90 mg/dL (0.55-1.02) 01/17/24 09:47 Calcium 9.3 mg/dL 01/17/24 09:47 Albumin 4.4 g/dL 01/17/24 09:47 Glucose 92 mg/dL 01/17/24 09:47 Liver Function Panel: Alanine Aminotransferase (ALT/SGPT) 29 U/L 01/17/24 09: 47 Aspartate Amino Transf (AST/SGOT) 27 U/L 01/17/24 09:47 Coagulation Panel: No Data to Display Cardiac Panel: No Data to Display Arterial Blood Gas: No Data to Display Venous Blood Gas: No Data to Display Pancreas Panel: No Data to Display Thyroid Panel: No Data to Display Infectious Disease: No Data to Display Blood Cultures: No Data to Display Toxicology Panel: No Data to Display Panel: No Data to Display Imaging and Studies Imaging and Studies Study information below may be from another EMR and interpreted by another provider. Please see original notes in EMR for more complete details. EKG Summary: EKG PATIENT NAME: Yudy Matos UNIT #: [id number] ORDERING PROVIDER: Karie Mckeon PRIMARY CARE PROVIDER: LIDA CAIN NP DATE/TIME OF SERVICE: 10/14/22 0815 : 1990 PERFORMING LOCATION: ER APPROVED REPORT Exam: Resting ECG Reason for Exam: sob Patient Location: E HR:106 bpm ECG Measurements Heart Rate 106 AXIS NV 125 P 43 QRSd 86 QRS 11 QT 351 T20 QTc 466 Conclusion Sinus tachycardia...rate> 99 Low voltage, precordial leads...precordial leads <1.0mV. Sinus. No STEMI. I have reviewed and interpreted ECG and agree with software generated interpretation. <Electronically signed by RANDI HERNANDEZ DO in [facility]> E-Sign Date: 10/14/22 E-Sign Time: 1420 ADDENDUM APPROVED REPORT Exam: Resting ECG Reason for Exam: sob Patient Location: E HR:106 bpm ECG Measurements Heart Rate 106 AXIS NV 125 P 43 QRSd 86 QRS 11 QT 351 T20 QTc 466 Conclusion Sinus tachycardia...rate> 99 Low voltage, precordial leads...precordial leads <1.0mV. Sinus. No STEMI. I have reviewed and interpreted ECG and agree with software generated interpretation. I have reviewed and I agree with the emergency room physician's ECG interpretation. Electronically signed by: <Electronically signed by Hannah Car M.D. in [place]> 10/15/22832 Cosigned by: Pulmonary Function Summary: Pulmonary Function Test PATIENT NAME: Yudy Matos UNIT #: [id number] ADMITTING PROVIDER: Ekaterina Rose M.D. PRIMARY CARE PROVIDER: LIDA CAIN NP DATE OF ADMIT: 11/06/22 : 1990 Date of service: 11/06/22 Time of Service: 08:03 Pulmonary Function Test Result Requesting Provider Rose Indications: [facility] Interpretation Spirometry: There is no airflow limitation. There is no significant bronchodilator response. Lung Volumes: Normal lung volumes Diffusion Capacity: Normal diffusion Airway Pressure: Normal airways resistance. Impression Normal pulmonary function testing Clinical Correlation therefore is recommended. cc: Dictated by: EKATERINA ROSE MD Dictated: 11/09/22 Time: 1512 <Electronically signed by Ekaterina Rose M.D.> Date: 11/09/221516 Date: Date: Transcribed Date: 11/09/22 Transcribed Time: 1512 By: AUNDREA This is privileged, confidential information, intended only for the provider named. Any use or distribution by any person other than this provider is strictly prohibited. If you receive this report in error, please notify us immediately at [phone] and return the original report to us at the address above. Thank you. Anesthesia Assessment and Plan Anesthesia History Personal History: PONV Family History: No Family History of Anesthesia Complications Exercise Tolerance Exercise Tolerance: Metabolic Equivalents>4 Pertinent Negatives Pertinent Negatives: No Symptoms of GERD Cardiac & Pulmonary Exam Cardiac Exam: Normal S1/S2 Heart Sounds Pulmonary Exam: Clear Bilateral Breath Sounds Implantable Cardiac Device Does patient have a Pacemaker or an ICD?: No Airway Exam Known Difficult Airway: No Mallampati Class: 2 Mouth Opening: Normal (> 3cm) Thyromental Distance: Greater than 3 cm Neck Range of Motion: Full ROM Neck Circumference: Normal Teeth Condition: Normal Dentition ASA Classification ASA Score: ASA 2 Emergency Case?: No NPO Status NPO Status: NPO Clears >2 hours, Solids >8 hours Status Status: Not Relevant due to Medical History Anesthesia Plan Resuscitation Status: Full Code Anesthesia Technique: General Anesthesia Airway Planned: Endotracheal Tube Monitors Used: Standard Monitors
[2024-02-09] MEDS: ceFAZolin 2 GM/50 ML BAG 100 GM (11:26)
[2024-02-09] MEDS: Bupivacaine 0.25% Pres-Free 30 ML VIAL (11:51)
--- NOTE | 2024-02-09 12:33 | GB_PTH ---
PATIENT: Yudy Matos LOC: [facility] U#:[id number] AGE/SX: 33/F ROOM: RE02/09/[address]: Ed Santos MD : 1990 BED: DIS: 02/09/2024 SPEC #: [id number] RECD: 02/09/24 12:55 STATUS: KACI REKayden #: [id number] CORDELL: 02/09/24 12:[address]: Ed Santos DEPT: Surgical Specimen RECD BY: Karie Elder ENTERED: 02/09/24 12:55 SP TYPE: GB OTHR DR: Nahid Potter, DOMI Tissues: 1 - GALLBLADDER Procedures: GROSS AND MICRO LEVEL 3 Comments: [id number]
[2024-02-09] MEDS: Droperidol 5 MG/2 ML VIAL 0.625 MG IVP (13:39)
[2024-02-09] MEDS: fentaNYL 100 MCG/2 ML VIAL IVP (13:47)
[2024-02-09] MEDS: Normal Saline 10 ML VIAL IJ (13:57)
[2024-02-09] MEDS: Ketorolac 15 MG/ML VIAL IVP (14:00)
--- NOTE | 2024-02-09 14:28 | W.ANESPOSTOP ---
Postoperative Evaluation Date, Time and Location Date Performed: 02/09/24 Time Performed: 14:28 Patient Location: Day Surgery Unit Vital Signs Most Recent Imported Vital Signs: Most Recent Vital Signs Temp Pulse Resp BP Pulse Ox 36.4 C L 58 L 16 92/67 L 99 02/09/24 14:07 02/09/24 14:07 02/09/24 14:07 02/09/24 14:07 02/09/24 14:07 Pain Score Most Recent Pain Score: Most Recent Pain Score Pain Level 8 02/09/24 13:49 Assessment Mental Status: Awake (Alert & Oriented to Patient Baseline) Airway and Respiratory Function: Patent airway with normal (patient baseline) respiratory exam Cardiovascular Function: Hemodynamically Stable Hydration Status: Adequately Hydrated Nausea & Vomiting: No Nausea or Vomiting Pain: Pain is tolerable per patient (Not currently 8, reports is sore but tolerable) Peripheral Nerve Block: Patient did not receive a nerve block Postoperative Comments:: Some Nausea in PACU, has resolved since droperidol. Patient doing well and in presence of partner. Patient is cleared for discharge at this time. Nursing aware to notify if any changes.
== END 2024-02-09 16:07 | disposition home or self-care (01) ==
LOC: SUR 08:52
PROVIDERS: PCP Nurse Practitioner Family; Visit Provider Surgery
PROC: 0FT44ZZ Resection of Gallbladder, Percutaneous Endoscopic Approach (ICD-10-PCS; CPT 47562; principal; 2024-02-09 10:00)
PROC: (CPT 47562; 2024-02-09 10:00)
DX: K42.9 Umbilical hernia without obstruction or gangrene; K80.10 Calculus of gallbladder with chronic cholecystitis without obstruction
CPT/HCPCS: 47562; 81025; 88304; J0665; J0690; J1100; J1790; J1885; J2001; J2250; J2371; J2405; J2704; J3010; J3475

== ENCOUNTER 2024-06-22 18:14 | Outpatient (REF) | payer OTHER, SELFPAY ==
[2024-06-22 21:10] LABS: Bilirubin Negative (Negative); Blood Trace-intact (Negative); Clarity Clear (Clear); Glucose Negative (Negative); Ketones Negative (Negative); Leukocyte Esterase Trace (Negative); Nitrite Negative (Negative); Urobilinogen 0.2 mg/dL (Up to 0.2)
[2024-06-22 21:16] LABS: Bacteria Few HPF (Negative); C & S Indicated? No; Casts Negative LPF (Negative); Crystals Negative HPF (Negative); Epithelial Cells Few HPF (Negative); Mucus Negative (Negative)
== END 2024-06-22 18:15 | disposition home or self-care (01) ==
LOC: LBN 18:14
PROVIDERS: PCP Nurse Practitioner Family; Visit Provider Emergency Medicine
DX: R35.0 Frequency of micturition (principal)
CPT/HCPCS: 81003; 81015

== ENCOUNTER 2024-08-02 06:07 | Day surgery (SDC) | payer OTHER, SELFPAY ==
--- NOTE | 2024-08-01 16:23 | HPE_ITS ---
Assessment and Plan Assessment and plan (1) Umbilical hernia: Status: Acute Assessment and plan: We reviewed the plan for a laparoscopic umbilical hernia repair today, and I think she has a good understanding of it. She had the chance to ask any other questions that she might have, we are okay to proceed as planned. History of Present Illness History of Present Illness Chief Complaint: umblical hernia Narrative: Yudy has painful lump at her umbilicus. Her significant history includes a laparoscopic cholecystectomy a few months ago. She was noted to have an umbilical hernia at that time, hernia was used for the umbilical port. Attempts were made to close this primarily at the end of the procedure, but it seems like the hernia is most likely recurred. I explained back then, that I did not recommend implantation of a permanent mesh at the time of biliary surgery because of the small, but possible risk of increased infection. In the interim, she had been doing pretty well up to about a week and a half ago. She was up and moving around when she felt sharp stabbing pain at her umbilicus. She says she was not really doing anything out of the ordinary. The pain has waxed and waned over the past week. Increased activity seems to make it worse, and there are no specific alleviating factors. Since her last office visit she was treated for a urinary tract infection, but is currently asymptomatic. Otherwise there have been no significant changes. 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 Treated with Molnupiravir. Cubital tunnel syndrome Surgical History Hx of arthroscopic knee surgery Hx of cholecystectomy FH: cholecystectomy (~01/2024) Hx of repair of rotator cuff H/O wisdom tooth extraction Hx of tonsillectomy Family History Mother No problems noted. Father No problems noted. Brother No problems noted. Son No problems noted. Maternal Grandfather , 67 No problems noted. Daughter No problems noted. Paternal Grandfather , 83 No problems noted. Maternal Grandmother No problems noted. Paternal Grandmother , 79 No problems noted. Social History (Updated 04/21/24 @ 14:15 by Yocasta Burnham) Smoking/Tobacco Use Status: Former Tobacco Use tobacco type: cigarettes Quit Date: 02/11/13 Tobacco: How many years used: 12 Quit status: quit date established Second Hand Exposure: Yes Smoking risk assessment performed?: Yes Alcohol Intake: current Alcohol Intake frequency: holidays/special occasions only Alcohol type: wine and hard liquor Drug use: Rarely Substance use type: marijuana Household members: spouse and children Housing: house Number of Children: 2 Communication Needs: None Do you need help understanding health information?: Rarely 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 [employer] Pets and animals: Yes Pets and animals: cat(s), dog(s) and bird(s) Sexually active: Yes Do you think of yourself as: straight/heterosexual Current gender identity: female What is your relationship status?: How often do you talk on the phone with friends or family?: three or more times per week How often do you get together with friends or relatives?: once per week How often do you attend christianity or confucianist services?: decline to answer Do you belong to any clubs or organized social groups?: no Panel score (0-1 are the most socially isolated patients): 2 What type of physical activity do you participate in: walking Duration: > 90 minutes/day Frequency: daily Sylvia/Quaker: No preference Seatbelt use: always Helmet use: Yes Helmet use: always Drive intox or ride w/intox pile driver: No Do you feel safe at home: Yes Do you feel safe in your relationship?: Yes Female Reproductive History Menstrual Age of Menarche: 8 Duration of menses: 3-5 days control method: permanent sterilization History History 2 Para 2 Hx # Term Pregnancies Multiple births Hx # Pregnancies Ectopic pregnancies AB induced Hx Number of Living Children AB spontaneous Past Pregnancies Del. Date GA/Weeks # Preg Succ Route Wgt Sex Labor Lgth Anesth esia Location Prov Complic 06/20/07 40 No vaginal 8 lb 5 oz Male 38 11/08/09 40 No vaginal 8 lb 13 oz Female Delivery Date: 06/20/07 Last Updated by: Mariangel Garza baby broke away from placenta. Pt induced Delivery Date: 11/08/09 Last Updated by: Mariangel Garza baby stuck in canal Meds Allergies and Home Medications Allergies Allergy/AdvReac Type Severity Reaction Status Date / Time venlafaxine AdvReac Intermediate tachycardia Verified 08/02/24 06:22 horseradish AdvReac Mild Anaphylaxis Verified 08/02/24 06:22 blue cheese Allergy Intermediate Anaphylaxis Uncoded 08/02/24 06:22 Home Medications ?Medication ?Instructions ?Recorded ?Confirmed ?Type albuterol sulfate 90 mcg/actuation 2 inh inhalation Q6H PRN shortness 08/23/23 08/02/24 Rx aerosol inhaler of breath or wheezing #18 grams phentermine 30 mg capsule 30 mg PO DAILY #30 caps 02/16/24 07/31/24 Rx epinephrine 0.3 mg/0.3 mL 0.3 mg (0.3 mL) IM ONCE #2 ea 04/14/24 07/31/24 Rx injection, auto-injector ascorbate calcium (vitamin C) 500 500 mg PO DAILY 05/23/24 08/02/24 History mg tablet echinacea 125 mg capsule 125 mg PO DAILY 05/23/24 08/02/24 History Exam Const General: cooperative, healthy appearing and not in acute distress Neck Neck: normal visual inspection, no lymphadenopathy and supple Resp Effort & Inspection: normal respiratory effort Auscultation: clear to auscultation bilaterally Cardio Jugular venous pressure: no JVD Rate: regular rate Rhythm: regular rhythm Heart Sounds: S1 normal and S2 normal GI Inspection: normal to inspection Palpation: soft, no guarding, hernia (Partially reducible umbilical) and nontender Percussion: normal to percussion Auscultation: normal bowel sounds Neuro General: patient alert, patient awake and patient oriented x3 Psych Appearance: grossly normal
--- NOTE | 2024-08-01 16:25 | W.PM.DSUDISC ---
Date of service: 08/02/24 Time of Service: 09:28 Discharge Plan Disposition Patient Disposition: Home Condition: Good Discharge Details Reason For Visit: Umbilical hernia repair Attending Provider: Ed Santos Primary Care Provider: Nahid Potter Home Meds and New Rx's Prescriptions: Continued albuterol sulfate 90 mcg/actuation HFA aerosol inhaler 2 inh inhalation Q6H PRN (Reason: shortness of breath or wheezing) Qty: 18 0RF epinephrine 0.3 mg/0.3 mL auto-injector 0.3 mg IM ONCE Qty: 2 0RF echinacea 125 mg capsule 125 mg PO DAILY Rx Instructions: administer with meals ascorbate calcium (vitamin C) 500 mg tablet 500 mg PO DAILY phentermine 30 mg capsule 30 mg PO DAILY Qty: 30 2RF Rx Instructions: must administer 2 hours after breakfast Discharge Instructions Instructions: Abdominal Hernia Repair, Laparoscopic Surgery Additional Instructions: Yudy, everything went very smoothly in the operating room today, and the implanted mesh should prevent any future hernias from being an issue. Like we talked about beforehand, you got a combination of medications to help with pain, and I did perform intraoperative nerve blocks to help reduce pain from the surgery. Those will start to wear off in the next 24 to 72 hours, so do not be alarmed if you have a little bit of increased pain over that time period. Heating pads and ice packs can help relieve a lot of this discomfort as no from your previous operation. Tylenol and ibuprofen are also fine to use. Do not be alarmed if you have a fair amount of bruising in the area, as that is extremely common. If any of the sites start to turn bright red, or drain any foul-smelling fluid, I would like to know about that before your follow-up. If you need anything, or have any questions at all before your office visit, please do not hesitate to call. Otherwise, I look forward to seeing him in the office on August 15. 1. Resume all of your regular medications. 2. Alternate heating pads and ice packs over the incisions and bellybutton as needed for pain 3. Alternate njeh-vla-yeefaus Tylenol and ibuprofen every 6 hours for the first 2 days, then use as needed. 4. Leave bandages in place for 24 hours, then remove. 5. Shower with warm soapy water. Pat dry. Use a bandaid if needed to protect your clothing. 6. No soaking or tub baths until I see you in the office. 7. No heavy lifting until I see you in the office. 8. Call the office (or go directly to the emergency room after hours) if you notice any of the following: Develop chills (warm to touch), or if you have a thermometer and your temperature is above 101 Difficulty breathing or difficultly swallowing Persistent vomiting Any bleeding ? exceeding one tablespoon 9. Call your physician if the site where your intravenous was started becomes red, swollen, painful, and warm to touch. Referrals: Ed Santos MD [ [facility] STAFF PHYSICIAN] - (August 15 at 7:30 AM) Activity:: Lifting less than 10 pounds Remove Dressings/Wound Care:: 24 hours Shower/Bathe:: 24 hours Diet:: As Tolerated Discharge Orders Discharge Orders: Discharge Order (Routine); Ordered 08/01/24 Ordered By: Ed Santos DS: Diagnosis Discharge Diagnosis (1) Umbilical hernia: Status: Acute Asessment and Plan: Outpatient postoperative follow-up
--- NOTE | 2024-08-01 16:27 | ROE_ITS ---
Operative Note Operative Note PRE-OP DIAGNOSIS: Incisional umbilical hernia POST-OP DIAGNOSIS: same PROCEDURE: Laparoscopic umbilical hernia repair SURGEON: Ed Santos [employer] PRINCIPAL: Patricia Kay ANESTHESIA TYPE: General LMA/ETT Refer to Anesthesia Record ESTIMATED BLOOD LOSS: 25 PATHOLOGY: none sent COMPLICATIONS: None Patient was transported to: PACU Patient's condition: stable Implants: 11.[address] mesh Indications: Yudy is a 33-year-old woman with a painful umbilical hernia Findings: 2 x 3 cm incarcerated umbilical hernia sac Procedure Description: I met with Yudy and her in the preoperative area, we reviewed the plan for surgery, and Yudy had a chance to ask any other questions that she might have. Not long thereafter, she was brought back to the operating room. She was assisted onto the OR table, and general endotracheal anesthesia was induced in the usual fashion. She was positioned in supported appropriately. Anterior abdominal wall was then prepped and draped in usual fashion. I raised a small skin wheal in the left upper quadrant near Vernon's point, made a small incision, and gained access to the peritoneum using a 5 mm optical trocar. The peritoneum was insufflated. Turned our attention to the umbilicus. There did appear to be a small defect at the umbilicus and draining some parietal, and most likely preperitoneal fat. Next, I performed bilateral tap blocks using local anesthetic with Exparel under the vision of the laparoscope. Next, a 12 mm port was placed in the left hemiabdomen in a lateral position. Then, using a 5 mm LigaSure device, the umbilical fascia was dissected clean. The edge was clearly identified, and it appeared that this may have been slightly adjacent to the previous umbilical closure site from her prior laparoscopic cholecystectomy. Having completely dissected the fascial edge, I attempted to reduce all of the contents of the hernia sac. Unfortunately, these were quite adherent to the subcutaneous tissues, and I was not able to completely reduce it. Next, I made a small incision at the umbilicus through which the mesh positioning system would ultimately be delivered. I dissected down into the subcutaneous tissues, and completely freed up the remaining portion of the hernia sac, and some incarcerated fat. This was sharply excised. The anterior abdominal wall was then used to estimate the size of the hernia defect. It appeared that 11.4 cm mesh would provide excellent coverage and overlap of healthy fascia. This was brought up onto the operative field, and delivered through the 12 mm port. Jamison Hargrove device was then passed through the umbilical incision, and the echo positioning system was used to lift the mesh up along the anterior abdominal wall onto the dissected fascia. Next, the Relyiatack device was used to secure the 4 cardinal points. Unfortunately, because of her short torso, was difficult to secure the left side of the mesh. Therefore, I placed another 5 mm port in the right mid abdomen so that this could be affixed in an appropriate fashion. The positioning system was then removed, and the mesh was affixed along the circumference using the Relyiatack device. There was excellent apposition of the mesh up against the anterior abdominal wall. The 12 mm port was then removed, and the Jamison Hargrove wound closure system was introduced. This port site was closed with 0 Vicryl sutures. The remaining 5 mm port sites were then removed, the incisions were all hemostatic, and they were irrigated. Skin was approximated with interrupted subcutaneous stitches. Band-Aids were applied, the patient was awoken from the anesthetic and transferred to the recovery unit. Date of Procedure: 08/02/24
[2024-08-02] VITALS (20 sets, daily range): BP systolic 83–103; BP diastolic 50–70; PULSE 67–88; RESP 15–21; TEMP 35.9–37.1; O2SAT 82–100; BMI 31.1
[2024-08-02] MEDS: Celecoxib 200 MG CAP PO (06:39)
[2024-08-02] MEDS: Acetaminophen 500 MG TAB 1000 MG PO (06:40)
[2024-08-02] MEDS: Normal Saline 1,000 ML 30 ML IV (07:00)
--- NOTE | 2024-08-02 07:06 | W.ANESPRE ---
General Info Date of Service Date Performed: 08/02/24 Height: 5 ft 4 in Weight: 82.2 kg Body Mass Index (BMI): 31.1 Surgical Procedure: Operation Date: 08/02/24 07:40 Proposed Procedure Side Surgeon p Herniorrhaphy Umbilical w/Mesh Ed Santos MD Meds Allergies and Home Medications Allergies Allergy/AdvReac Type Severity Reaction Status Date / Time venlafaxine AdvReac Intermediate tachycardia Verified 08/02/24 06:22 horseradish AdvReac Mild Anaphylaxis Verified 08/02/24 06:22 blue cheese Allergy Intermediate Anaphylaxis Uncoded 08/02/24 06:22 Home Medication ?Medication ?Instructions ?Recorded albuterol sulfate 90 mcg/actuation 2 inh inhalation Q6H PRN shortness 08/23/23 aerosol inhaler of breath or wheezing #18 grams phentermine 30 mg capsule 30 mg PO DAILY #30 caps 02/16/24 epinephrine 0.3 mg/0.3 mL 0.3 mg (0.3 mL) IM ONCE #2 ea 04/14/24 injection, auto-injector ascorbate calcium (vitamin C) 500 500 mg PO DAILY 05/23/24 mg tablet echinacea 125 mg capsule 125 mg PO DAILY 05/23/24 Current Visit Medications: Current Medications Generic Name Dose Route Start Last Admin Trade Name Freq PRN Reason Stop Dose Admin Acetaminophen 1,000 mg 08/02/24 06:00 08/02/24 06:40 Acetaminophen 500 Mg Tab PO 08/02/24 18:00 1,000 mg PREOP ALEX Administration Celecoxib 200 mg 08/02/24 06:00 08/02/24 06:39 Celecoxib 200 Mg Cap PO 08/02/24 18:00 200 mg PREOP ALEX Administration Gabapentin 600 mg 08/02/24 06:00 Gabapentin 300 Mg Cap PO 08/02/24 18:00 PREOP ALEX Hydromorphone HCl 0.2 mg 08/01/24 16:27 Hydromorphone 1 Mg/Ml Syr IVP 08/31/24 16:26 Q1H PRN PRN Cefazolin Sodium/Dextrose 2 gm in 50 mls @ 100 mls/hr 08/02/24 06:00 Ancef Duplex IVPB 08/02/24 18:00 PREOP ALEX Sodium Chloride 1,000 mls @ 30 mls/hr 08/02/24 07:00 08/02/24 07:00 Saline 1000ml Bag IV 09/01/24 06:59 30 mls/hr INFUSION ALEX Administration IV Miscellaneous Supplies 1 each 08/02/24 06:00 Iv Access IV 08/31/24 23:59 DIRECTED ALEX Sodium Chloride 0 ml 08/02/24 06:00 Normal Saline Flush 10 Ml Syr IV 08/31/24 23:59 PRN PRN Sodium Chloride 0 ml 08/02/24 06:00 Normal Saline 10 Ml Vial IJ 08/31/24 23:59 DIRECTED PRN Sterile Water 0 ml 08/02/24 06:00 Water,Injection,Sterile 10 Ml Vial IJ 08/31/24 23:59 DIRECTED PRN Tramadol HCl 50 mg 08/01/24 16:27 Tramadol 50 Mg Tab PO 08/31/24 16:26 Q6H PRN PRN Pain PFSH Active Problems Active Problems: Problem Status Onset Code Biliary dyskinesia Acute K82.8 Pneumonia Acute J18.9 Chondromalacia, left knee Acute M94.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 Treated with Molnupiravir. Cubital tunnel syndrome Surgical History Surgical History Hx of arthroscopic knee surgery Hx of cholecystectomy FH: cholecystectomy (~01/2024) Hx of repair of rotator cuff H/O wisdom tooth extraction Hx of tonsillectomy Tobacco Smoking/Tobacco Use Status: Former Tobacco Use Passive smoking exposure: No Second hand exposure: Yes Alcohol Alcohol Intake: current Alcohol intake frequency: holidays/special occasions only Alcohol type: wine and hard liquor Substance Use Substance use: Rarely Substance use type: marijuana Prental History History 2 Para 2 Hx # Term Pregnancies Multiple births Hx # Pregnancies Ectopic pregnancies AB induced Hx Number of Living Children AB spontaneous Past Pregnancies Del. Date GA/Weeks # Preg Succ Route Wgt Sex Labor Lgth Anesthesia Location Prov Complic 06/20/07 40 No vaginal 3770.487 g Male 38 11/08/09 40 No vaginal 3997.283 g Female Delivery Date: 06/20/07 Last Updated by: Mariangel Garza baby broke away from placenta. Pt induced Delivery Date: 11/08/09 Last Updated by: Mariangel Kayla baby stuck in canal Vital Signs and Lab Results Vital Signs Most Recent Vital Signs in EMR: Most Recent Vital Signs Temp Pulse Resp Pulse Ox 37.1 C 88 16 100 08/02/24 06:23 08/02/24 06:23 08/02/24 06:23 08/02/24 06:23 Point of Care Results Point of Care Results: POC- Test(urine) Negative 08/02/24 06:41 Lab Results Blood Type / Crossmatch: No Data to Display Complete Blood Count: No Data to Display Complete Metabolic Panel: No Data to Display Liver Function Panel: No Data to Display Coagulation Panel: No Data to Display Cardiac Panel: No Data to Display Arterial Blood Gas: No Data to Display Venous Blood Gas: No Data to Display Pancreas Panel: No Data to Display Thyroid Panel: No Data to Display Infectious Disease: No Data to Display Blood Cultures: No Data to Display Toxicology Panel: No Data to Display Panel: No Data to Display Imaging and Studies Imaging and Studies Study information below may be from another EMR and interpreted by another provider. Please see original notes in EMR for more complete details. EKG Summary: EKG PATIENT NAME: Yudy Matos UNIT #: [id number] ORDERING PROVIDER: Karie Mckeon PRIMARY CARE PROVIDER: LIDA CAIN NP DATE/TIME OF SERVICE: 10/14/22 0815 : 1990 PERFORMING LOCATION: ER APPROVED REPORT Exam: Resting ECG Reason for Exam: sob Patient Location: E HR:106 bpm ECG Measurements Heart Rate 106 AXIS NM 125 P 43 QRSd 86 QRS 11 QT 351 T20 QTc 466 Conclusion Sinus tachycardia...rate> 99 Low voltage, precordial leads...precordial leads <1.0mV. Sinus. No STEMI. I have reviewed and interpreted ECG and agree with software generated interpretation. <Electronically signed by RANDI HERNANDEZ DO in [facility]> E-Sign Date: 10/14/22 E-Sign Time: 1420 ADDENDUM APPROVED REPORT Exam: Resting ECG Reason for Exam: sob Patient Location: E HR:106 bpm ECG Measurements Heart Rate 106 AXIS NM 125 P 43 QRSd 86 QRS 11 QT 351 T20 QTc 466 Conclusion Sinus tachycardia...rate> 99 Low voltage, precordial leads...precordial leads <1.0mV. Sinus. No STEMI. I have reviewed and interpreted ECG and agree with software generated interpretation. I have reviewed and I agree with the emergency room physician's ECG interpretation. Electronically signed by: <Electronically signed by Hannah Car M.D. in [place]> 10/15/22 0833 Cosigned by: Pulmonary Function Summary: Pulmonary Function Test PATIENT NAME: Yudy Matos UNIT #: [id number] ADMITTING PROVIDER: Ekaterina Rose M.D. PRIMARY CARE PROVIDER: LIDA CAIN NP DATE OF ADMIT: 11/06/22 : 1990 Date of service: 11/06/22 Time of Service: 08:03 Pulmonary Function Test Result Requesting Provider Rose Indications: [facility] Interpretation Spirometry: There is no airflow limitation. There is no significant bronchodilator response. Lung Volumes: Normal lung volumes Diffusion Capacity: Normal diffusion Airway Pressure: Normal airways resistance. Impression Normal pulmonary function testing Clinical Correlation therefore is recommended. cc: Dictated by: EKATERINA ROSE MD Dictated: 11/09/22 Time: 1512 <Electronically signed by Ekaterina Rose M.D.> Date: 11/09/221516 Date: Date: Transcribed Date: 11/09/22 Transcribed Time: 1512 By: AUNDREA This is privileged, confidential information, intended only for the provider named. Any use or distribution by any person other than this provider is strictly prohibited. If you receive this report in error, please notify us immediately at [phone] and return the original report to us at the address above. Thank you. Anesthesia Assessment and Plan Anesthesia History Personal History: PONV Family History: No Family History of Anesthesia Complications Exercise Tolerance Exercise Tolerance: Metabolic Equivalents>4 Pertinent Negatives Pertinent Negatives: No Symptoms of GERD Cardiac & Pulmonary Exam Cardiac Exam: Normal S1/S2 Heart Sounds Pulmonary Exam: Clear Bilateral Breath Sounds Implantable Cardiac Device Does patient have a Pacemaker or an ICD?: No Airway Exam Known Difficult Airway: No Mallampati Class: 2 Mouth Opening: Normal (> 3cm) Thyromental Distance: Greater than 3 cm Neck Range of Motion: Full ROM Neck Circumference: Normal Teeth Condition: Normal Dentition ASA Classification ASA Score: ASA 2 Emergency Case?: No NPO Status NPO Status: NPO Clears >2 hours, Solids >8 hours Status Status: Negative HCG Anesthesia Plan Resuscitation Status: Full Code Anesthesia Technique: General Anesthesia Airway Planned: Endotracheal Tube Monitors Used: Standard Monitors
[2024-08-02] MEDS: ceFAZolin 2 GM/50 ML BAG IVPB (07:35)
[2024-08-02] MEDS: Bupivacaine LIPOSOME/PF 133 MG/10 ML VIAL IJ (07:53)
[2024-08-02] MEDS: Bupivacaine 0.25% Pres-Free 30 ML VIAL (07:53)
[2024-08-02] MEDS: HYDROmorphone 1 MG/ML SYR IVP (10:15)
--- NOTE | 2024-08-02 11:04 | W.ANESPOSTOP ---
Postoperative Evaluation Date, Time and Location Date Performed: 08/02/24 Time Performed: 10:35 Patient Location: PACU Vital Signs Most Recent Imported Vital Signs: Most Recent Vital Signs Temp Pulse Resp BP Pulse Ox 35.9 C L 68 16 98/70 L 98 08/02/24 10:37 08/02/24 10:37 08/02/24 10:37 08/02/24 10:37 08/02/24 10:37 Pain Score Most Recent Pain Score: Most Recent Pain Score Pain Level 4 08/02/24 10:37 Assessment Mental Status: Awake (Alert & Oriented to Patient Baseline) Airway and Respiratory Function: Patent airway with normal (patient baseline) respiratory exam Cardiovascular Function: Hemodynamically Stable Hydration Status: Adequately Hydrated Nausea & Vomiting: No Nausea or Vomiting Pain: Pain is tolerable per patient Peripheral Nerve Block: Patient did not receive a nerve block
== END 2024-08-02 11:30 | disposition home or self-care (01) ==
PROVIDERS: PCP Nurse Practitioner Family; Visit Provider Surgery
PROC: (CPT 49650; principal; 2024-08-02 07:30)
DX: K42.9 Umbilical hernia without obstruction or gangrene (principal)
CPT/HCPCS: 49594; 81025; C1781; C9290; J0665; J0690; J1100; J1171; J2250; J2371; J2405; J2704

== ENCOUNTER 2024-08-08 10:15 | Emergency (ER) | payer OTHER, SELFPAY ==
[2024-08-08] VITALS (17 sets, daily range): BP systolic 86–112; BP diastolic 46–73; PULSE 56–105; RESP 10–25; O2SAT 92–100
--- NOTE | 2024-08-08 10:15 | RT.EKG_ITS ---
APPROVED REPORT Exam: Resting ECG Reason for Exam: Syncope Patient Location: E HR:81 bpm ECG Measurements Heart Rate 81 AXIS MT 126 P 58 QRSd 83 QRS 26 QT 378 T 32 QTc 439 Conclusion Sinus rhythm 81 no stemi
[2024-08-08] MEDS: Ondansetron 4 MG/2 ML VIAL IVP (10:39)
--- NOTE | 2024-08-08 10:40 | W.ED.GENAD ---
Discharge Plan Disposition Patient Disposition: Home Discharge Details Clinical Impression: Vasovagal episode, Nausea, Acute dehydration Primary Care Provider: Nahid Potter ED Provider: Zechariah Wheeler Home Meds and New Rx's Prescriptions: No Action albuterol sulfate 90 mcg/actuation HFA aerosol inhaler 2 inh inhalation Q6H PRN (Reason: shortness of breath or wheezing) Qty: 18 0RF epinephrine 0.3 mg/0.3 mL auto-injector 0.3 mg IM ONCE Qty: 2 0RF echinacea 125 mg capsule 125 mg PO DAILY Rx Instructions: administer with meals ascorbate calcium (vitamin C) 500 mg tablet 500 mg PO DAILY phentermine 30 mg capsule 30 mg PO DAILY Qty: 30 2RF Rx Instructions: must administer 2 hours after breakfast ondansetron 4 mg tablet,disintegrating 4 mg PO Q8H PRN (Reason: nausea and vomiting) Qty: 4 0RF tramadol 100 mg tablet 100 mg PO Q8H PRN (Reason: pain) Patient Comments: TAKE ONE TABLET BY MOUTH THREE TIMES A DAY EVERY 8 HOURS NEEDED FOR SEVERE PAIN Discharge Instructions Instructions: Vasovagal Response Additional Instructions: Make sure to increase your fluid intake at home. Take the Zofran and this will help with the nausea so that you can drink more liquids Follow-up with your surgeon as scheduled return to the emergency department with persistent symptoms, not tolerating liquids by mouth or other concerns HPI General Date/Time Provider Initiated Documentation: 08/08/24 10:18. Limitations to Documentation: no limitations. Information obtained by: patient. HPI Narrative: 33-year-old female with past medical history of migraines, recent umbilical hernia repair presents for evaluation of syncopal episode. She reports that 1 week ago she had abdominal hernia repair surgery at this facility. She reports that she has been doing well and improving slowly. She reports chronic abdominal pain. She reports some intermittent nausea for which her doctor did call in a prescription for nausea medication, she states that she was not able to get this until yesterday. This morning when she woke up she felt very lightheaded, clammy and nauseated. She felt like she needed to throw up. She did not throw up but she did have a lot of dry heaving. She states after doing this, she woke up on the floor. She says that a second time this happened after going to the bathroom and was also associated with dry heaving. She denies any chest pain or trauma from her fall. She reports her mild persistent abdominal pain that is unchanged. She states that her gave her an [id number] nausea medication which did improve her nausea. Related Data Home Medications ?Medication ?Instructions ?Recorded ?Confirmed albuterol sulfate 90 mcg/actuation 2 inh inhalation Q6H PRN shortness 08/23/23 08/08/24 aerosol inhaler of breath or wheezing #18 grams phentermine 30 mg capsule 30 mg PO DAILY #30 caps 02/16/24 08/08/24 epinephrine 0.3 mg/0.3 mL 0.3 mg (0.3 mL) IM ONCE #2 ea 04/14/24 08/08/24 injection, auto-injector ascorbate calcium (vitamin C) 500 500 mg PO DAILY 05/23/24 08/08/24 mg tablet echinacea 125 mg capsule 125 mg PO DAILY 05/23/24 08/08/24 ondansetron 4 mg disintegrating 4 mg PO Q8H PRN nausea and 08/03/24 08/08/24 tablet vomiting #4 tabs tramadol 100 mg tablet 100 mg PO Q8H PRN pain 08/08/24 08/08/24 Previous Rx's ?Medication ?Instructions ?Recorded albuterol sulfate 90 mcg/actuation 2 inh inhalation Q6H PRN shortness 08/23/23 aerosol inhaler of breath or wheezing #18 grams phentermine 30 mg capsule 30 mg PO DAILY #30 caps 02/16/24 epinephrine 0.3 mg/0.3 mL 0.3 mg (0.3 mL) IM ONCE #2 ea 04/14/24 injection, auto-injector ondansetron 4 mg disintegrating 4 mg PO Q8H PRN nausea and 08/03/24 tablet vomiting #4 tabs Allergies Allergy/AdvReac Type Severity Reaction Status Date / Time venlafaxine AdvReac Intermediate tachycardia Verified 08/08/24 10:30 horseradish AdvReac Mild Anaphylaxis Verified 08/08/24 10:30 blue cheese Allergy Intermediate Anaphylaxis Uncoded 08/08/24 10:30 General Stated Complaint: [id number] RAN: 3 Exam Narrative Exam Narrative: Review of Systems: All systems reviewed & are unremarkable except as noted in HPI and below Well-developed, no acute distress NCAT RRR normal BP Unlabored respiratory effort clear BP Nondistended abdomen , mild tenderness, not rigid, surgical sites appear c/d/i no focal neurologic deficits Course Vital Signs Vital signs: Vital Signs Pulse 84 08/08/24 10:22 Respiratory Rate 15 08/08/24 10:22 Blood Pressure 108/65 08/08/24 10:22 Pulse Oximetry 100 08/08/24 10:22 Pulse 84 08/08/24 10:22 Respiratory Rate 15 08/08/24 10:22 Respiratory Effort Normal 08/08/24 10:26 Blood Pressure 108/65 08/08/24 10:22 Blood Pressure Position Sitting 08/08/24 10:22 Pulse Oximetry 100 08/08/24 10:22 Oxygen Delivery Method Room Air 08/08/24 10:22 Oxygen Flow Rate 0 08/08/24 10:22 Medical Decision Making Emergent evaluation of syncope. Patient had recent operative procedure and the syncope was in the setting of vomiting. There is no preceding chest pain or shortness of breath and she does not have the symptoms at this time. I have a very low suspicion for postoperative DVT PE. Her EKG was reviewed independently interpreted: Sinus 81 normal axis no acute ischemic changes. There is suspicion for provoked syncope, vasovagal episode, dehydration. Will evaluate lab work for stability. Will give a dose of nausea medication. Patient is tolerating p.o. given the IV fluid shortage, will continue oral hydration. I did discuss with the operating surgeon, concurs with plan and will follow-up with patient. Patient did have positive orthostatic vital signs and she was given approximately 1 L of oral fluids to consume. After this, her dizziness had resolved and her vital signs improved. Lab work was unremarkable. 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 And keep follow-up with surgeon. 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 Treated with Molnupiravir. Cubital tunnel syndrome Surgical History Hx of umbilical hernia repair (~07/2024) Hx of arthroscopic knee surgery Hx of cholecystectomy FH: cholecystectomy (~01/2024) Hx of repair of rotator cuff H/O wisdom tooth extraction Hx of tonsillectomy Family History Mother No problems noted. Father No problems noted. Brother No problems noted. Son No problems noted. Maternal Grandfather , 67 No problems noted. Daughter No problems noted. Paternal Grandfather , 83 No problems noted. Maternal Grandmother No problems noted. Paternal Grandmother , 79 No problems noted. 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 [employer] Pets and animals: Yes Pets and animals: cat(s), dog(s) and bird(s) Sexually active: Yes Do you think of yourself as: straight/heterosexual Current gender identity: female What is your relationship status?: How often do you talk on the phone with friends or family?: three or more times per week How often do you get together with friends or relatives?: once per week How often do you attend mandaen or cheondoism services?: decline to answer Do you belong to any clubs or organized social groups?: no Panel score (0-1 are the most socially isolated patients): 2 What type of physical activity do you participate in: walking Duration: > 90 minutes/day Frequency: daily Sylvia/Scientologist: No preference Seatbelt use: always Helmet use: Yes Helmet use: always Drive intox or ride w/intox dray driver: No Do you feel safe at home: Yes Do you feel safe in your relationship?: Yes Female Reproductive History Menstrual Age of Menarche: 8 Duration of menses: 3-5 days control method: permanent sterilization History History 2 Para 2 Hx # Term Pregnancies Multiple births Hx # Pregnancies Ectopic pregnancies AB induced Hx Number of Living Children AB spontaneous Past Pregnancies Del. Date GA/Weeks # Preg Succ Route Wgt Sex Labor Lgth Anesthesia Location Prov Complic 06/20/07 40 No vaginal 3770.487 g Male 38 11/08/09 40 No vaginal 3997.283 g Female Delivery Date: 06/20/07 Last Updated by: Mariangel Garza baby broke away from placenta. Pt induced Delivery Date: 11/08/09 Last Updated by: Mariangel Garza baby stuck in canal
[2024-08-08 10:43] LABS: Abs Immature Grans 0.04 10^3/uL (0.0-0.06); Absolute Basophil Count 0.02 10^3/uL (0.0-0.2); Absolute Eosinophil Count 0.07 10^3/uL (0.0-0.7); Absolute Lymphocyte Count 1.86 10^3/uL (1.2-3.4); Absolute Monocyte Count 0.61 10^3/uL (0.1-0.8); Absolute Neutrophil Count 9.09 10^3/uL (1.2-6.7); Basophils % 0.2 %; Eosinophils % 0.6 %; HCT 41.6 % (36.0-46.0); HGB 13.7 g/dL (11.2-15.7); Immature Grans % 0.3 %; Lymphocytes % 15.9 %; MCH 31.1 pg (27.0-33.0); MCHC 32.9 % (32.0-36.0); MCV 94 fL (80-95); MPV 10.3 fL (8.0-11.0); Monocytes % 5.2 %; Neutrophils % 77.8 %; Platelet Count 269 10^3/uL (130-400); RBC 4.41 10^6/uL (3.93-5.22); RDW 11.9 % (11.7-14.6); RDW-SD 41.1 fL; WBC 11.69 10^3/uL (4.4-10.8)
[2024-08-08 11:04] LABS: ALT 50 U/L (14-59); AST 20 U/L (15-37); Albumin 3.5 g/dL (3.4-5.0); Alkaline Phosphatase 58 U/L (46-116); Anion Gap 8.3 mmol/L (3-11); BUN 20 mg/dL (7-18); Bilirubin, Total 0.65 mg/dL (0.2-1.0); CO2 26.7 mmol/L (21.0-32.0); Calcium 8.5 mg/dL (8.5-10.1); Chloride 108 mmol/L (98-107); Estimated GFR 75.34 (mL/min/1.73m2); Glucose 88 mg/dL (74-106); Potassium 4.3 mmol/L (3.5-5.1); Sodium 143 mmol/L (136-145); Total Protein 7.2 g/dL (6.4-8.2)
== END 2024-08-08 12:15 | disposition home or self-care (01) ==
PROVIDERS: Emergency Provider Emergency Medicine; PCP Nurse Practitioner Family
DX: R55 Syncope and collapse (principal); E86.0 Dehydration; R11.0 Nausea
CPT/HCPCS: 36415; 80053; 93005; 96374; 99284; 85025; 93010; J2405

== ENCOUNTER 2024-08-24 02:55 | Outpatient (CLI) | payer OTHER, SELFPAY ==
--- NOTE | 2024-08-24 | DI.MRI_ITS ---
Exam(s) MR LOWER JOINT LT WO EXAM: MR LOWER JOINT LT WO CLINICAL HISTORY: s/p Left knee arthroscopy 05/27/23, INTERNAL DERANGEMENT LT KNEE, M23.92. TECHNIQUE: Multiplanar multisequence MRI was performed. COMPARISON: MR MR LOWER JOINT LT WO from 01/12/2023 FINDINGS: BONES: There is no fracture or contusion pattern. Some red marrow reconversion in the distal femur an d proximal tibia. JOINTS: A small to moderate-sized joint effusion is present. Articular cartilage: Patellofemoral joint: Articular cartilage is unremarkable. Medial femoral tibial joint: Similar cartilage irregularity and thinning over the medial femoral con dyle and medial tibial plateau. Lateral femoral tibial joint: Articular cartilage is unremarkable. LIGAMENTS/TENDONS: Anterior Cruciate: Unremarkable. Posterior Cruciate: Unremarkable. Medial Collateral:Unremarkable. Lateral Collateral ligament complex: Unremarkable. Extensor mechanism: Unremarkable. Medial retinaculum: Unremarkable. Lateral retinaculum: Unremarkable. Popliteus: Unremarkable. MENISCI: The medial meniscus shows mild degenerative changes. The lateral meniscus is unremarkable. MUSCLES: Unremarkable. SOFT TISSUES: Unremarkable. IMPRESSION: Degenerative changes at the medial femoral tibial joint with cartilage thinning and irregularity, sim ilar to prior. No evidence of meniscal tear or ligament tear. DATA REPOSITORY:
== END 2024-08-24 03:15 ==
LOC: DI 02:55
PROVIDERS: PCP Nurse Practitioner Family; Visit Provider Student in an Organized Health Care Education/Training Program
DX: M17.12 Unilateral primary osteoarthritis, left knee (principal)
CPT/HCPCS: 73721

== ENCOUNTER 2024-08-29 15:51 | Outpatient (CLI) | payer OTHER, SELFPAY ==
--- NOTE | 2024-08-29 14:15 | DI.RAD_ITS ---
Exam(s) XR KNEE LT 2V AP,LAT EXAM: XR KNEE LT 2V AP,LAT CLINICAL HISTORY: LEFT KNEE PAIN. TECHNIQUE: 2D digital imaging was performed. COMPARISON: CR XR KNEE LT 3V AP,LAT,RAYMUNDO from 01/05/2023 FINDINGS: Two views No evidence of acute fracture nor prominent joint effusion. There may be a small amount of increased joint fluid. No obvious degenerative changes. No osseous lesions. No obvious patellar displacemen t. IMPRESSION: No acute osseous findings on these two views of the left knee. DATA REPOSITORY: RADIATION DOSE DELIVERED:
== END 2024-08-29 15:52 | disposition home or self-care (01) ==
LOC: DIORS 15:52
PROVIDERS: PCP Nurse Practitioner Family; Visit Provider Student in an Organized Health Care Education/Training Program
DX: M94.262 Chondromalacia, left knee (principal)
CPT/HCPCS: 73560

== ENCOUNTER 2024-10-03 12:07 | Emergency (ER) | payer OTHER, SELFPAY ==
[2024-10-03] VITALS (9 sets, daily range): BP systolic 109–137; BP diastolic 67–89; PULSE 77–115; RESP 16; TEMP 36.8; O2SAT 98–100
--- NOTE | 2024-10-03 12:30 | DI.CT_ITS ---
Exam(s) CT ABDOMEN PELVIS W EXAM: CT ABDOMEN PELVIS W CLINICAL HISTORY: RLQ tenderness, appy. TECHNIQUE: Imaging Protocol: Axial computed tomography images with coronal and sagittal reformatted images were created and reviewed CONTRAST MATERIAL: Intravenous: Omnipaque-350 100cc Oral: None COMPARISON: CT CT ABDOMEN PELVIS W from 12/29/2023 FINDINGS: VISUALIZED LUNG BASES: No nodules nor pleural effusions evident. ABDOMEN: There is no ascites. LIVER: There are no focal hepatic lesions evident. No dilated intrahepatic ducts. GALLBLADDER/BILIARY: The gallbladder is now surgically absent. CBD is not dilated. PANCREAS: No evidence of pancreatic mass nor dilatation of the pancreatic duct. SPLEEN: Spleen is not enlarged. No obvious intrasplenic lesions. Splenic and portal veins are paten t. ADRENALS: There are no significant adrenal masses. KIDNEYS:No cysts evident. No solid renal masses. No calculi nor hydronephrosis.. ABDOMINAL AORTA: Abdominal aorta is not enlarged. LYMPH NODES:There is no retroperitoneal nor paraaortic adenopathy. ABDOMINAL WALL: The previously present anterior abdominal wall midline umbilical hernia is no longer evident having been repaired. There is no abnormal collection at this level GI: There is no evidence of bowel obstruction, free air, nor abscess. PELVIS: GI: No evidence of appendicitis.No evidence of sigmoid diverticulitis. LYMPH NODES: There is no intrapelvic nor inguinal adenopathy. REPRODUCTIVE: Air column in the vagina consistent with tampon. Uterus appears age-appropriate. Are follicular cysts in both ovaries, the largest being on the right-sided measuring 1.5 cm. No signific ant abnormal adnexal masses nor free fluid in the pelvis. URINARY BLADDER: No calculi nor obvious masses evident OSSEOUS: No fractures and no significant osseous lesions. IMPRESSION: 1. Compared to the prior CT scan 12/29/2023 there has been interval cholecystectomy and anterior abdo ravi wall umbilical hernia repair. 2. No evidence of bowel obstruction, ascites, free air, nor abscess. 3. 1.5 cm follicular cyst in the right ovary. No free fluid. Called by myself to ER physician 10/03/2024 at 1:30 p.m. RADIATION DOSE DELIVERED: 546.28mGy.cm Total DLP DATA REPOSITORY: All CT scans at this facility are submitted to the National Radiology Data Registry (NRDR) Dose Index Registry (DIR) with the [employer] (ACR). RADIATION OPTIMIZATION: All CT scans at this facility use at least one of these dose optimization te chniques: automated exposure control; mA and/or kV adjustment per patient size (includes targeted exa ms where dose is matched to clinical indication); or iterative reconstruction.
--- NOTE | 2024-10-03 12:32 | ED.GENADUL_ITS ---
Discharge Plan Disposition Patient Disposition: Home Condition: Stable Discharge Details Clinical Impression: Right ovarian cyst Primary Care Provider: Nahid Potter ED Provider: Luis Hernadez Home Meds and New Rx's Prescriptions: New ketorolac 10 mg tablet 10 mg PO QID PRN5 Days Qty: 20 0RF Rx Instructions: maximum total duration of 5 days from all oral, intranasal, or parenteral formulations Continued albuterol sulfate 90 mcg/actuation HFA aerosol inhaler 2 inh inhalation Q6H PRN (Reason: shortness of breath or wheezing) Qty: 18 0RF epinephrine 0.3 mg/0.3 mL auto-injector 0.3 mg IM ONCE Qty: 2 0RF echinacea 125 mg capsule 125 mg PO DAILY Rx Instructions: administer with meals ascorbate calcium (vitamin C) 500 mg tablet 500 mg PO DAILY phentermine 30 mg capsule 30 mg PO DAILY Qty: 30 2RF Rx Instructions: must administer 2 hours after breakfast Discharge Instructions Instructions: Ketorolac (Systemic), Ovarian Cyst ED Additional Instructions: You were seen in the emergency department for your right ovarian cyst, is 1.5 cm, this pain will likely persist until the cyst ruptures he may be left with some residual soreness as this happens. Please take 1000 mg of Tylenol every 6 hours, snf between Tylenol take the prescribed Toradol also on a 6-hour schedule for the next 5 days then switch to 400 mg of ibuprofen in its place. Please follow-up with your [facility]DER or primary care provider for follow-up ultrasounds of your ovaries for further management of ovarian cyst as they are likely to recur. Referrals: Nahid Potter, OBSTETRICS GYN PHYSICIAN [Primary Care Provider] - Discharge Data Discharge Date/Time-TO BE ENTERED AT DEPARTURE: 10/03/24 14:17 HPI General Date/Time Provider Initiated Documentation: 10/03/24 12:18 . HPI Narrative: 34 year-old female presents to ED today by POV/ambulating with a chief complaint of RLQ abdominal pain with onset one week ago, worsening- now having anorexia and nausea, chills. Quality described as severe RLQ pain, no radiation to vomiting, not passing flatus, dysuria, urinary retention, bowel incontinence, chest pain, shortness of breath. Severity is described as 9/10. Palliating factors include OTC analgesics not helping. Provoking factors include nothing specific. Events leading up to the incident/Associated Symptoms: Patient denies history of abdominal surgeries. Patient not anticoagulated. Related Data Home Medications ?Medication ?Instructions ?Recorded ?Confirmed albuterol sulfate 90 mcg/actuation 2 inh inhalation Q6H PRN shortness 08/23/23 10/03/24 aerosol inhaler of breath or wheezing #18 grams epinephrine 0.3 mg/0.3 mL 0.3 mg (0.3 mL) IM ONCE #2 ea 04/14/24 10/03/24 injection, auto-injector ascorbate calcium (vitamin C) 500 500 mg PO DAILY 05/23/24 10/03/24 mg tablet echinacea 125 mg capsule 125 mg PO DAILY 05/23/24 10/03/24 phentermine 30 mg capsule 30 mg PO DAILY #30 caps 08/16/24 10/03/24 ketorolac 10 mg tablet 10 mg PO QID PRN 5 days #20 tabs 10/03/24 Previous Rx's ?Medication ?Instructions ?Recorded albuterol sulfate 90 mcg/actuation 2 inh inhalation Q6H PRN shortness 08/23/23 aerosol inhaler of breath or wheezing #18 grams epinephrine 0.3 mg/0.3 mL 0.3 mg (0.3 mL) IM ONCE #2 ea 04/14/24 injection, auto-injector phentermine 30 mg capsule 30 mg PO DAILY #30 caps 08/16/24 ketorolac 10 mg tablet 10 mg PO QID PRN 5 days #20 tabs 10/03/24 Allergies Allergy/AdvReac Type Severity Reaction Status Date / Time venlafaxine AdvReac Intermediate tachycardia Verified 10/03/24 12:18 horseradish AdvReac Mild Anaphylaxis Verified 10/03/24 12:18 blue cheese Allergy Intermediate Anaphylaxis Uncoded 10/03/24 12:18 General Stated Complaint: Abd Prob RAN: 3 Review of Systems All systems reviewed & are unremarkable except as noted in HPI and below Exam Narrative Exam Narrative: GENERAL APPEARANCE: Well-nourished, non-toxic, awake and alert, atraumatic, no acute distress. SKIN: Warm, pink, dry, intact, without rashes/lesions/ulcerations. HEAD: Normocephalic, atraumatic, normal hair distribution for gender/age. EYES: Normal conjunctiva, no exudates on lids/lashes. ENT: Nares patent, no circumoral cyanosis, no facial swelling NECK: Supple, trachea midline, painless cervical ROM. LUNGS/CHEST: Lungs CTA bilaterally-no rhonchi/rales/wheezes diffusely, non- labored respirations, normal A/P diameter, symmetrical expansion, no chest wall deformity HEART (CV/PV): Regular rate and rhythm without murmur, no peripheral edema, no JVD. ABDOMEN: Soft, non-distended, no guarding, right lower quadrant tenderness at McBurney's point, rebound tenderness, Rovsing's, psoas positive, negative Dahl sign. MSK: Normal ROM, no swelling/deformity to bilateral UEs or LEs, moving all extremities without weakness, no cyanosis, spine midline without tenderness, normal curvature. NEURO: Mental Status AAOx4 - alert to person, place, time, events No facial droop, no forehead involvement. Motor: No focal weakness - strength 5/5 in bilateral UEs and LEs, proximal and distal, symmetric. Sensory: sensation intact to light touch globally. Gait normal: patient ambulated without ataxia into ED room. PSYCH: euthymic, cooperative, pleasant, appropriate speech Course Vital Signs Vital signs: Vital Signs Temperature 36.8 C 10/03/24 12:15 Pulse 115 H 10/03/24 12:15 Respiratory Rate 16 10/03/24 12:15 Blood Pressure 137/89 10/03/24 12:15 Pulse Oximetry 98 10/03/24 12:15 Temperature 36.8 C 10/03/24 12:15 Temperature Source Temporal Artery Scan 10/03/24 12:15 Pulse 115 H 10/03/24 12:15 Respiratory Rate 16 10/03/24 12:15 Blood Pressure 137/89 10/03/24 12:15 Blood Pressure Position Sitting 10/03/24 12:15 Pulse Oximetry 98 10/03/24 12:15 Oxygen Delivery Method Room Air 10/03/24 12:15 Oxygen Flow Rate 0 10/03/24 12:15 Pain Level 9 10/03/24 12:15 Medical Decision Making This dictation utilizes [id number] dictation software and may contain unedited grammatical errors. 34 year-old female presents to ED today by POV/ambulating with a chief complaint of RLQ abdominal pain with onset one week ago, worsening- now having anorexia and nausea, chills. Quality described as severe RLQ pain, no radiation to vomiting, not passing flatus, dysuria, urinary retention, bowel incontinence, chest pain, shortness of breath. Severity is described as 9/10. Palliating factors include OTC analgesics not helping. Provoking factors include nothing specific. Events leading up to the incident/Associated Symptoms: Patient endorses history of cholecystectomy, umbilical hernia repair. Patients' medical history: Migraine, hypothyroid MSK pain. Family and social history: Noncontributory. Pertinent exam findings / vital signs include right lower quadrant tenderness at McBurney's point, rebound tenderness, Rovsing's, psoas positive, negative Dahl sign, benign cardiopulmonary status and exam, neuro intact. Differential / pathologies of concern include appendicitis, ovarian cyst, SBO, renal colic. Diagnostic studies of: -CBC, CMP, lactate, lipase, UA, CT ABD/pelvis with contrast. -CBC shows no leukocytosis, no left shift -CMP is unremarkable -UA shows no evidence of infection -Lipase negative -Lactate negative -CT shows 1.5 cm right ovarian cyst without evidence of hemorrhage, no appendicitis Interventions of: -IV Tylenol, Toradol, Zofran. ED Course/Assessment/Plan: 34-year-old female presents with severe right lower quadrant abdominal tenderness, is found to have a right ovarian cyst 1.5 cm no concern for torsion, no evidence of infection on lab or urine studies, CT shows no evidence of appendicitis or any other acute abnormality to account for the patient's pain, counseled her on taking regular dose of Tylenol and ibuprofen, following up with her primary care provider for possible ultrasounds going forward and that ovarian cysts are likely to recur, strict return criteria for any severe increase in pain especially fever, intractable nausea or vomiting. Findings not consistent with appendicitis, ovarian torsion, PID, UTI, obstructive uropathy, sepsis. Disposition of right ovarian cyst. Patient verbalized understanding of the plan and return to ED criteria and engaged in shared decision making. Medical Records Medical records reviewed: Yes I reviewed the patient's medical records. Imaging Data Radiologic Study: Attestation: I personally reviewed and interpreted this imaging study as follows: Imaging: X-Ray Radiologist's impression: EXAM: CT ABDOMEN PELVIS W CLINICAL HISTORY: RLQ tenderness, appy. TECHNIQUE: Imaging Protocol: Axial computed tomography images with coronal and sagittal reformatted images were created and reviewed CONTRAST MATERIAL: Intravenous: Omnipaque-350 100cc Oral: None COMPARISON: CT CT ABDOMEN PELVIS W from 12/29/2023 FINDINGS: VISUALIZED LUNG BASES: No nodules nor pleural effusions evident. ABDOMEN: There is no ascites. LIVER: There are no focal hepatic lesions evident. No dilated intrahepatic ducts. GALLBLADDER/BILIARY: The gallbladder is now surgically absent. CBD is not dila misti. PANCREAS: No evidence of pancreatic mass nor dilatation of the pancreatic duct. SPLEEN: Spleen is not enlarged. No obvious intrasplenic lesions. Splenic and portal veins are patent. ADRENALS: There are no significant adrenal masses. KIDNEYS:No cysts evident. No solid renal masses. No calculi nor hydronephrosis.. ABDOMINAL AORTA: Abdominal aorta is not enlarged. LYMPH NODES:There is no retroperitoneal nor paraaortic adenopathy. ABDOMINAL WALL: The previously present anterior abdominal wall midline umbilical hernia is no longer evident having been repaired. There is no abnormal collection at this level GI: There is no evidence of bowel obstruction, free air, nor abscess. PELVIS: GI: No evidence of appendicitis.No evidence of sigmoid diverticulitis. LYMPH NODES: There is no intrapelvic nor inguinal adenopathy. REPRODUCTIVE: Air column in the vagina consistent with tampon. Uterus appears age-appropriate. Are follicular cysts in both ovaries, the largest being on the right-sided measuring 1.5 cm. No significant abnormal adnexal masses nor free fluid in the pelvis. URINARY BLADDER: No calculi nor obvious masses evident OSSEOUS: No fractures and no significant osseous lesions. IMPRESSION: 1. Compared to the prior CT scan 12/29/2023 there has been interval cholecystectomy and anterior abdominal wall umbilical hernia repair. 2. No evidence of bowel obstruction, ascites, free air, nor abscess. 3. 1.5 cm follicular cyst in the right ovary. No free fluid. Called by myself to ER physician 10/03/2024 at 1:30 p.m. Lab Data Lab results reviewed: Yes I reviewed the patient's lab results. Labs: Laboratory Tests Range/Units 10/03/24 10/03/24 12:27 12:53 WBC (4.4-10.8) 10^3/uL 10.22 RBC (3.93-5.22) 10^6/uL 4.63 Hgb (11.2-15.7) g/dL 14.4 Hct (36.0-46.0) % 43.9 MCV (80-95) fL 95 MCH (27.0-33.0) pg 31.1 MCHC (32.0-36.0) % 32.8 RDW (11.7-14.6) % 11.7 Plt Count (130-400) 10^3/uL 320 MPV (8.0-11.0) fL 10.3 Immature Gran % % 0.3 Neutrophils % % 62.3 Lymphocytes % % 29.9 Monocytes % % 6.1 Eosinophils % % 1.1 Basophils % % 0.3 Nucleated RBC % (0.0-0.3) % 0.0 Absolute Neutrophils (1.2-6.7) 10^3/uL 6.37 Absolute Lymphocytes (1.2-3.4) 10^3/uL 3.06 Absolute Monocytes (0.1-0.8) 10^3/uL 0.62 Absolute Eosinophils (0.0-0.7) 10^3/uL 0.11 Absolute Basophils (0.0-0.2) 10^3/uL 0.03 VBG Lactate (<or=2.0) mmol/L 1.4 Sodium (136-145) mmol/L 142 Potassium (3.5-5.1) mmol/L 3.6 Chloride (98-107) mmol/L 106 Carbon Dioxide (21.0-32.0) mmol/L 29.8 Anion Gap (3-11) mmol/L 6.2 BUN (7-18) mg/dL 14 Creatinine (0.55-1.02) mg/dL 1.0 Est GFR (CKD-EPI 2020) (mL/min/1.73m2) 74.88 Glucose (74-106) mg/dL 73 L Calcium (8.5-10.1) mg/dL 8.7 Total Bilirubin (0.2-1.0) mg/dL 0.86 AST (15-37) U/L 22 ALT (14-59) U/L 38 Alkaline Phosphatase (46-116) U/L 53 Total Protein (6.4-8.2) g/dL 7.6 Albumin (3.4-5.0) g/dL 3.7 Lipase (<78) U/L 70 Urine Color (Yellow) Yellow Urine Clarity (Clear) Clear Urine pH (5-8) 6.0 Ur Specific [place] (1.005-1.025) 1.025 Urine Protein (Neg-Trace) mg/dL Negative Urine Ketones (Negative) mg/dL Negative Urine Blood (Negative) Trace-intact H Urine Nitrite (Negative) Negative Urine Bilirubin (Negative) Negative Urine Urobilinogen (Up to 0.2) mg/dL 0.2 Ur Leukocyte Esterase (Negative) Negative Urine RBC (0-2) HPF 0-2 Urine WBC (0-5) HPF 0-2 Ur Epithelial Cells (Negative) HPF Rare Urine Crystals (Negative) HPF Negative Urine Bacteria (Negative) HPF Rare Urine Casts (Negative) LPF Negative Urine Mucus (Negative) Negative Ur Culture Indicated? 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 Treated with Molnupiravir. Cubital tunnel syndrome Surgical History Hx of umbilical hernia repair (~07/2024) Hx of arthroscopic knee surgery Hx of cholecystectomy FH: cholecystectomy (~01/2024) Hx of repair of rotator cuff H/O wisdom tooth extraction Hx of tonsillectomy Family History Mother No problems noted. Father No problems noted. Brother No problems noted. Son No problems noted. Maternal Grandfather , 67 No problems noted. Daughter No problems noted. Paternal Grandfather , 83 No problems noted. Maternal Grandmother No problems noted. Paternal Grandmother , 79 No problems noted. 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[employer] @[email or web address] Pets and animals: Yes Pets and animals: cat(s), dog(s) and bird(s) Sexually active: Yes Do you think of yourself as: straight/heterosexual Current gender identity: female What is your relationship status?: How often do you talk on the phone with friends or family?: three or more times per week How often do you get together with friends or relatives?: once per week How often do you attend roman catholic or episcopal services?: decline to answer Do you belong to any clubs or organized social groups?: no Panel score (0-1 are the most socially isolated patients): 2 What type of physical activity do you participate in: walking Duration: > 90 minutes/day Frequency: daily Sylvia/Restorationist: No preference Seatbelt use: always Helmet use: Yes Helmet use: always Drive intox or ride w/intox auto driver: No Do you feel safe at home: Yes Do you feel safe in your relationship?: Yes Female Reproductive History Menstrual Age of Menarche: 8 Duration of menses: 3-5 days control method: permanent sterilization History History 2 Para 2 Hx # Term Pregnancies Multiple births Hx # Pregnancies Ectopic pregnancies AB induced Hx Number of Living Children AB spontaneous Past Pregnancies Del. Date GA/Weeks # Preg Succ Route Wgt Sex Labor Lgth Anesth esia Location [facility] 06/20/07 40 No vaginal 3770.487 g Male 38 11/08/09 40 No vaginal 3997.283 g Female Delivery Date: 06/20/07 Last Updated by: Mariangel Garza baby broke away from placenta. Pt induced Delivery Date: 11/08/09 Last Updated by: Mariangel Garza baby stuck in canal
[2024-10-03 12:48] LABS: Lactate 1.4 mmol/L (<or=2.0)
[2024-10-03 12:49] LABS: Abs Immature Grans 0.03 10^3/uL (0.0-0.06); Absolute Basophil Count 0.03 10^3/uL (0.0-0.2); Absolute Eosinophil Count 0.11 10^3/uL (0.0-0.7); Absolute Lymphocyte Count 3.06 10^3/uL (1.2-3.4); Absolute Monocyte Count 0.62 10^3/uL (0.1-0.8); Absolute Neutrophil Count 6.37 10^3/uL (1.2-6.7); Basophils % 0.3 %; Eosinophils % 1.1 %; HCT 43.9 % (36.0-46.0); HGB 14.4 g/dL (11.2-15.7); Immature Grans % 0.3 %; Lymphocytes % 29.9 %; MCH 31.1 pg (27.0-33.0); MCHC 32.8 % (32.0-36.0); MCV 95 fL (80-95); MPV 10.3 fL (8.0-11.0); Monocytes % 6.1 %; Neutrophils % 62.3 %; Platelet Count 320 10^3/uL (130-400); RBC 4.63 10^6/uL (3.93-5.22); RDW 11.7 % (11.7-14.6); RDW-SD 40.2 fL; WBC 10.22 10^3/uL (4.4-10.8)
[2024-10-03] MEDS: ACETAMINOPHEN 1,000 MG/100 ML BAG 400 MG IVPB (13:02)
[2024-10-03] MEDS: Ketorolac 15 MG/ML VIAL IVP (13:03)
[2024-10-03] MEDS: Ondansetron 4 MG/2 ML VIAL IVP (13:03)
[2024-10-03 13:06] LABS: ALT 38 U/L (14-59); AST 22 U/L (15-37); Albumin 3.7 g/dL (3.4-5.0); Alkaline Phosphatase 53 U/L (46-116); Anion Gap 6.2 mmol/L (3-11); BUN 14 mg/dL (7-18); Bilirubin, Total 0.86 mg/dL (0.2-1.0); CO2 29.8 mmol/L (21.0-32.0); Chloride 106 mmol/L (98-107); Estimated GFR 74.88 (mL/min/1.73m2); Glucose 73 mg/dL (74-106); Lipase 70 U/L (<78); Potassium 3.6 mmol/L (3.5-5.1); Sodium 142 mmol/L (136-145); Total Protein 7.6 g/dL (6.4-8.2)
[2024-10-03] MEDS: Normal Saline - Diluent 50 ML VIAL IJ (13:09)
[2024-10-03] MEDS: Omnipaque 350 MG/ML 100 ML BTL 75 ML IJ (13:10)
[2024-10-03 13:12] LABS: Calcium 8.7 mg/dL (8.5-10.1)
[2024-10-03 13:18] LABS: Bilirubin Negative (Negative); Blood Trace-intact (Negative); Clarity Clear (Clear); Glucose Negative (Negative); Ketones Negative (Negative); Leukocyte Esterase Negative (Negative); Nitrite Negative (Negative); Specific Gravity 1.025 (1.005-1.025); Urobilinogen 0.2 mg/dL (Up to 0.2)
[2024-10-03 13:30] LABS: Bacteria Rare HPF (Negative); C & S Indicated? No; Casts Negative LPF (Negative); Crystals Negative HPF (Negative); Epithelial Cells Rare HPF (Negative); Mucus Negative (Negative); RBC 0-2 HPF (0-2); WBC 0-2 HPF (0-5)
== END 2024-10-03 14:17 | disposition home or self-care (01) ==
PROVIDERS: Emergency Provider Physician Assistant; PCP Nurse Practitioner Family
DX: R10.31 Right lower quadrant pain (principal); Z59.811 Housing instability, housed, with risk of homelessness; N83.201 Unspecified ovarian cyst, right side
CPT/HCPCS: 36415; 80053; 83690; 96365; 96375; 99285; 74177; 81003; 81015; 83605; 85025; 99284; J0131; J1885; J2405; J3490

== ENCOUNTER 2024-10-21 10:41 | Outpatient (CLI) | payer OTHER, SELFPAY ==
--- NOTE | 2024-10-21 10:59 | DI.RAD_ITS ---
Exam(s) XR CHEST 2V PA LATERAL EXAM: XR CHEST 2V PA LATERAL CLINICAL HISTORY: cough, r/o pneumonia TECHNIQUE: 2D digital imaging was performed. Two views. COMPARISON: CR XR CHEST 2V PA LATERAL from 08/18/2023 FINDINGS: HEART: Normal size. Aorta: Not dilated. PULMONARY VASCULATURE: Normal. MEDIASTINUM: Unremarkable. LUNGS: Clear. PLEURAL SPACE: No pleural effusion or pneumothorax. BONE:Unremarkable for age. SOFT TISSUES: Nipple jewelry. Cholecystectomy clips in the right upper quadrant. IMPRESSION: No acute abnormality. DATA REPOSITORY: RADIATION DOSE DELIVERED:
--- NOTE | 2024-10-21 11:04 | DI.VRAD_ITS ---
PROCEDURE INFORMATION: Exam: XR Chest Exam date and time: 10/21/2024 10:52 AM Age: 34 years old Clinical indication: Cough TECHNIQUE: Imaging protocol: Radiologic exam of the chest. Views: 2 views. COMPARISON: CR XR CHEST 2V PA LATERAL 08/18/2023 1:20 PM FINDINGS: Lungs: Unremarkable. No consolidation. Pleural spaces: Unremarkable. No pleural effusion. No pneumothorax. Heart/Mediastinum: Unremarkable. No cardiomegaly. Bones/joints: Post right distal claviculectomy. Organs: There has been a cholecystectomy. IMPRESSION: No acute cardiopulmonary process. Dictated and Authenticated by: Arden Velazquez MD. Orderin Dennise Petersen MD
== END 2024-10-21 11:01 ==
LOC: DI 10:44
PROVIDERS: PCP Nurse Practitioner Family; Visit Provider Physician Assistant
DX: R05.9 Cough, unspecified (principal)
CPT/HCPCS: 71046

== ENCOUNTER 2025-02-13 01:15 | Outpatient (CLI) | payer OTHER, SELFPAY ==
--- NOTE | 2025-02-13 13:30 | DI.US_ITS ---
Exam(s) US BREAST RT COMPLETE MG MAMMO DIAGNOSTIC BI EXAM: MG MAMMO DIAGNOSTIC BI AND COMPLETE RIGHT BREAST ULTRASOUND CLINICAL HISTORY: right breast pain/fullness,RT BREAST MASS,N63.10,N64.4. TECHNIQUE: BILATERAL CC AND MLO mammographic images were obtained with 3D tomosynthesis technique an d utilizing computer aided detection (CAD). COMPLETE RIGHT BREAST ULTRASOUND was performed including all 4 quadrants as well as the retroareolar region and axillary region. COMPARISON: None. This is a baseline mammogram on this 34-year-old patient feels a lump at approxim ately 1 o'clock position of the right breast. FINDINGS: DIAGNOSTIC BILATERAL MAMMOGRAM: No CAD designations. No spiculated masses nor malignant-appearing microcalcification groups in either breast. There is no significant architectural distortion or skin thickening-retraction. COMPLETE RIGHT BREAST ULTRASOUND: There is a solitary finding which is a 4 mm benign microcyst at the 12 o'clock position. There are n o solid lesions in all 4 quadrants. Scanning of the right axilla is negative for adenopathy. IMPRESSION: 1. No mammographic evidence of malignancy in either breast. 2. Solitary benign 4 mm microcyst at 12 o'clock position of the right breast. No other focal ultraso und findings in all 4 quadrants of the right breast and no axillary adenopathy. Appropriate follow-up is repeat imaging in a few months time if patient still feels that there is a l ump. Otherwise patient be sent to breast surgeon for examination. The patient was informed of the findings and follow-up recommendations prior to leaving the [facility] today. BI-RADS Category 2 - Benign Findings Breast Density - Category B - There are scattered areas of fibroglandular density. Breast density Category C or D implies that the patient has dense breast tissue. Dense breast tissue can make it harder to find cancer on a mammogram. Dense breast tissue is also associated with an incr eased risk of breast cancer. This information about the result of the mammogram report was provided to the patient to raise their awareness. Use this report when you speak with the patient about their risks for breast cancer, which includes their family history. At that time, you may recommend additional screening tests (Ultrasoun d or MRI) as these tests may add significant information. A negative radiographic report should not delay biopsy if a dominant or clinically suspicious mass is present. Up to ten percent of cancers are not identified on mammography. A negative report may reinforce clinical impression. Adenosis and dense breasts may obscure an underlying neoplasm. False positive reports average 6 to 10%. Patient will receive a letter notifying them of these results.
== END 2025-02-13 01:35 ==
LOC: DI 01:15
PROVIDERS: PCP Nurse Practitioner Family; Visit Provider Obstetrics & Gynecology
DX: N64.4 Mastodynia (principal); N60.01 Solitary cyst of right breast; Z12.31 Encounter for screening mammogram for malignant neoplasm of breast
CPT/HCPCS: 76642; 77062; 77066; G0279

== ENCOUNTER 2025-04-18 14:27 | Outpatient (CLI) | payer OTHER, SELFPAY ==
[2025-04-18 14:55] LABS: Hemoglobin A1C 5.2 % (<5.7)
[2025-04-18 14:56] LABS: Calculated LDL 112 mg/dL (<100); Cholesterol 187 mg/dL (<200); HDL Cholesterol 52 mg/dL (>or=50); Triglyceride 116 mg/dL (<150)
== END 2025-04-18 14:28 | disposition home or self-care (01) ==
LOC: LBO 14:27
PROVIDERS: PCP Nurse Practitioner Family; Visit Provider Nurse Practitioner Family
DX: Z13.220 Encounter for screening for lipoid disorders (principal); Z13.1 Encounter for screening for diabetes mellitus
CPT/HCPCS: 36415; 80061; 83036